=== PATIENT | female | born 1950 | race Caucasian/White ===

== ENCOUNTER → 2019-08-31 08:04 | Outpatient (BNVA) | payer MEDICARE, MEDICAID, SELFPAY | PROVIDERS: Family Provider Family Medicine; Visit Provider Nurse Practitioner Psychiatric/Mental Health | DX: F33.1 Major depressive disorder, recurrent, moderate (principal); G30.9 Alzheimer's disease, unspecified; F02.81 Dementia in other diseases classified elsewhere, unspecified severity, with behavioral disturbance | CPT/HCPCS: 99214 ==

== ENCOUNTER 2019-10-12 08:35 | Outpatient (CLI) | payer MEDICARE, MEDICAID, SELFPAY ==
--- NOTE | 2019-10-12 08:46 | FL_ITS ---
WS: [id number] ESOPHAGRAM WITH FLUOROSCOPY HISTORY: DIFFICULTY SWALLOWING LIQUIDS COMPARISON: None available. FLUOROSCOPY TIME: 0.3 minutes. Mexican Food Maker radiograph: Prior anterior cervical fusion at C5-6. Esophagus and swallowing function: Limited evaluation of the esophagus as patient readily aspirated t he thin barium liquid. Study was terminated quickly. FL/FL barium swallow [id number] IMPRESSION: 1. Significant barium aspiration. Study was terminated quickly. 2. Consider follow-up modified barium swallowing examination.
== END 2019-10-12 08:36 | disposition home or self-care (01) ==
LOC: RADWPI 08:39
PROVIDERS: Family Provider Family Medicine; PCP Registered Nurse; Visit Provider Registered Nurse
DX: R13.10 Dysphagia, unspecified (principal)
CPT/HCPCS: 74220

== ENCOUNTER 2019-10-19 09:45 | Outpatient (CLI) | payer MEDICARE, MEDICAID, SELFPAY ==
--- NOTE | 2019-10-19 09:56 | FL_ITS ---
WS: [id number] MODIFIED BARIUM SWALLOW HISTORY: Other dysphagia FLUOROSCOPY TIME: 1.5 minutes. Modified barium swallow was performed by the speech pathologist. Fluoroscopy was provided with the pa tient in a lateral projection. Multiple food consistencies were provided. With thin liquids there is moderate aspiration or laryngeal penetration. Spontaneous cough was noted. With the thick liquid there is delay in swallowing and mild pharyngeal coating but no aspiration or penetration. With thick liquid consistency laryngeal penetration. FL/FL barium swallow modifd [id number] IMPRESSION: 1. Significant aspiration with thin liquids. Study was terminated at that time . 2. Delay in initiating swallowing. Please see speech therapist report also for recommendations.
== END 2019-10-19 09:46 | disposition home or self-care (01) ==
LOC: RAD 09:47
PROVIDERS: Family Provider Family Medicine; PCP Registered Nurse; Visit Provider Registered Nurse
DX: R13.19 Other dysphagia
CPT/HCPCS: 74230; 92611

== ENCOUNTER 2020-04-13 23:18 | Emergency (ER) | payer MEDICARE, MEDICAID, SELFPAY ==
[2020-04-13 23:24] VITALS: BP 144/41; PULSE 80; RESP 16; TEMP 36.6; O2SAT 98
--- NOTE | 2020-04-13 23:36 | PC.NURSE ---
EKG done at 2326 and shown to ER doctor
[2020-04-13 23:39] VITALS: BP 144/41; PULSE 78; RESP 18; TEMP 36.6; O2SAT 98
--- NOTE | 2020-04-13 23:42 | XRR_ITS ---
PROCEDURE INFORMATION: Exam: XR Chest, 1 View Exam date and time: 04/13/2020 11:45 PM Age: 69 years old Clinical indication: Patient HX: Syncope with secretions. History of chf. TECHNIQUE: Imaging protocol: XR of the chest Views: 1 view. COMPARISON: CR Chest 1 [place] [id number] 04/14/2019 11:52 AM FINDINGS: Lungs: Unremarkable. No consolidation. Pleural space: Unremarkable. No pleural effusion. No pneumothorax. Heart/Mediastinum: Unremarkable. No cardiomegaly. Bones/joints: Unremarkable. XR/XR chest 1V portable [id number] IMPRESSION: Negative for infiltrate.
--- NOTE | 2020-04-13 23:42 | ECG_ITS ---
[facility] Test Date: 2020-04-13 Pat Name: Florence Caban Department: Room: Gender: Female Drainlayer: : 1950 Requested By: Aries Wylie Order Number: [id number] Rahel MD: Alka Reeder M.D. Measurements Intervals [place] Rate: 76 P: 72 WV: 144 QRS: 14 QRSD: 101 T: 71 QT: 404 QTc: 457 Interpretive Statements SINUS RHYTHM LOW QRS VOLTAGE IN PRECORDIAL LEADS [QRS DEFLECTION < 1.0 mV IN CHEST LEADS] Compared to ECG 04/14/2019 14:54:27 Sinus tachycardia no longer present Left-axis deviation no longer present Incomplete right bundle-branch block no longer present Myocardial infarct finding no longer present Electronically Signed On 04-14-2020 22:07:56 CDT by Alka Reeder M.D. [id number]
--- NOTE | 2020-04-13 23:43 | CTR_ITS ---
PROCEDURE INFORMATION: Exam: CT Head Without Contrast Exam date and time: 04/13/2020 11:44 PM Age: 69 years old Clinical indication: Syncope and collapse; Patient HX: Syncope with secretions. History of alzheimer's TECHNIQUE: Imaging protocol: Computed tomography of the head without contrast. Radiation optimization: All CT scans at this facility use at least one of these dose optimization techniques: automated exposure control; mA and/or kV adjustment per patient size (includes targeted exams where dose is matched to clinical indication); or iterative reconstruction. COMPARISON: CT head wo con* [id number] 02/21/2018 8:14 PM RADIATION DOSE METRICS: Total DLP (mGy-cm): 727.91 FINDINGS: Brain: Moderate diffuse white matter disease likely reflecting chronic microvascular ischemic changes Cerebral ventricles: No ventriculomegaly. Bones/joints: Unremarkable. No acute fracture. Paranasal sinuses: Visualized sinuses are unremarkable. No fluid levels. Mastoid air cells: Visualized mastoid air cells are well aerated. Soft tissues: Unremarkable. CT/CT head wo con* [id number] IMPRESSION: Negative for intracranial hemorrhage or mass effect. Radiation Dose CTDIVOL = (mGy): DLP = 727.91 (mGy-cm)
[2020-04-14] VITALS (9 sets, daily range): BP systolic 90–129; BP diastolic 42–58; PULSE 68–88; RESP 19–32; TEMP 36.7; O2SAT 93–99
--- NOTE | 2020-04-14 00:16 | PC.NURSE ---
Tried to obtain urine sample via straight catheter, no output. Patient is incontinent and pull up was full on urine.
[2020-04-14 00:20] LABS: Basophils # 0.1 10^3/uL (0.0-0.1); Basophils % 0.9 %; Eosinophils # 0.4 10^3/uL (0.0-0.8); Eosinophils % 5.4 %; Hematocrit 35.3 % (37.0-47.0); Hemoglobin 10.6 g/dL (11.5-15.3); Lymphocytes # 2.4 10^3/uL (0.8-4.8); Lymphocytes % 29.4 %; Mean Corpuscular Volume 96.4 fL (81-99); Mean Platelet Volume 10.4 fL (7.4-10.4); Monocytes # 1.1 10^3/uL (0.2-0.9); Monocytes % 13.2 %; Neutrophils # 4.08 10^3/uL (1.8-7.7); Neutrophils % 50.7 %; Nucleated Red Blood Cells % 0 %; Platelet Count 234 10^3/cmm (130-400); Red Blood Count 3.66 10^6/uL (4.1-5.3); Red Cell Distribution Width 15.9 % (12.1-15.1)
[2020-04-14 00:36] LABS: Troponin(5th) Baseline 13 ng/L (0-10)
[2020-04-14 00:44] LABS: Alanine Aminotransferase 9 U/L (0-33); Alkaline Phosphatase 98 IU/L (35-105); Anion Gap 14.8 (5-19); Aspartate Amino Transferase 13 U/L (0-32); Blood Urea Nitrogen 39 mg/dL (8-23); Calcium 9.6 mg/dL (8.5-10.5); Carbon Dioxide 27 mmol/L (22-29); Chloride 105 mmol/L (98-107); Creatine Phosphokinase 23 U/L (26-192); Globulin 3.5 g/dL (1.3-4.6); Glomerular Filtration Rate 49.5 mL/min (90-130); Glucose 338 mg/dL (65-115); NT Pro B Type Natriuretic Pept 190 pg/mL (0-125); Osmolality Calculated 319 mOsm/kg (285-295); Potassium 3.8 mmol/L (3.5-5.1); Sodium 143 mmol/L (136-145); Total Bilirubin 0.3 mg/dL (0.15-1.2); Total Protein 7.5 g/dL (6.6-8.7)
--- NOTE | 2020-04-14 01:38 | W.ED.SYNCOPE ---
HPI - Syncope General: Chief Complaint: Syncope Stated Complaint: poss syncope Time Seen by Provider: 04/13/20 23:25 History of Present Illness: HPI narrative: 69-year-old female with dementia presents with a period of unresponsiveness at home. Her daughter noticed that her head was down, and that she was breathing heavily, she tried to wake her without success. She says that for a minute she was foaming from her mouth. Respirations were slowed deep and snoring. Jabs to the side did not wake her. The daughter called an ambulance, and by the time the ambulance had gotten there and gotten inside, the patient was awake. She was treated for urinary tract infection last week. There is been no fever. The patient is nonverbal, and so a history from her self is hard. There is been some shortness of breath, and she was given Lasix for some heart failure at a outside facility. MD complaint: loss of consciousness Onset (ago): minute(s) -: minutes(s) Description of event: incontinence Prodromal symptoms: none Witnessed: Yes - by Bystander Context: at rest Injuries sustained associated with event: none Associated symptoms: Reports no associated symptoms; Deny fever(s) or short of breath Review of Systems General: Reports: ROS unobtainable due to medical condition and ROS unobtainable due to mental status Const: Denies: fever(s) [facility] ED PFSH: Medical History (Updated 04/14/20 @ 03:19 by Aries Pathak DO) Alzheimer disease Congestive heart failure Major depressive disorder, recurrent episode, moderate with anxious distress Physical Exam Const: GENERAL APPEARANCE: comfortable and well kempt ORIENTATION/CONSCIOUSNESS: Yes oriented to person and Yes oriented to time; not oriented to place HENMT: COMMON NORMALS: normocephalic, external ears normal and Normal external nose present HEAD & SCALP: normocephalic FACE & SINUS: normal facial exam NOSE: Normal external nose present and No nasal discharge present EXTERNAL EAR: Yes external ears normal MOUTH: tongue normal THROAT: posterior oropharynx normal; no peritonsillar mass Eye: COMMON NORMALS: EOMs intact bilaterally and conjunctivae normal EYELID: eyelids normal CONJUNCTIVA: Yes conjunctivae normal Neck/C-Spine: COMMON NORMALS: full ROM GENERAL: No tracheal deviation CERVICAL SPINE: Yes normal cervical lordosis and No Cervical spine tenderness Chest: COMMONS NORMALS: normal inspection of the chest CHEST: No tenderness Resp: COMMON NORMALS: clear to auscultation bilaterally EFFORT & INSPECTION: No tachypneic, No respiratory distress, No retractions, No uses accessory muscles and No tracheal deviation AUSCULTATION: clear to auscultation bilaterally, no rhonchi, no wheezes and lung sounds not diminished Cardio: COMMON NORMALS: regular rate and regular rhythm RATE: regular rate RHYTHM: regular rhythm HEART SOUNDS: no murmurs PERIPHERAL PULSES: radial pulses present GI: INSPECTION: No abdominal distension AUSCULTATION: No Hyperactive bowel sounds present and No Hypoactive bowel sounds present PALPATION: No Guarding due to palpation present (GI) and No Rigid due to palpation PERCUSSION: no dullness to percussion and no tympanic to percussion Neuro: SENSORIUM/ORIENTATION: Yes oriented to person, No oriented to place and Yes oriented to time Psych: APPEARANCE: Yes well kempt Skin: COMMON NORMALS: no rashes or lesions noted GENERAL SKIN EXAM: no rashes or lesions noted Course Vital Signs: Vital signs: Vital Signs Temperature 97.8 F 04/13/20 23:39 Pulse Rate 68 04/14/20 02:45 Respiratory Rate 24 H 04/14/20 02:45 Blood Pressure 129/58 04/14/20 02:45 Pulse Oximetry 98 04/14/20 02:45 MDM - Syncope MDM Narrative: Medical decision making narrative: Syncopal episode in a 69-year-old female. She appears back to baseline. Her sugar is elevated. She does not have any acidosis. Her hemoglobin is 10.6. White blood cell count is 8.0. EKG is not remarkable for acute ST changes. Troponin is not elevated 2 hours. She does have significant urinary tract infection, and yeast infection. She will be treated for this. Head CT is negative. Chest x-ray is negative as well. Lab Data: Labs: Lab Results 04/14/20 04/14/20 04/14/20 Range/Units 00:02 00:02 00:02 WBC 8.0 (4.0-10.0) 10^3/ uL RBC 3.66 L (4.1-5.3) 10^6/u L Hgb 10.6 L (11.5-15.3) g/dL Hct 35.3 L (37.0-47.0) % MCV 96.4 (81-99) fL MCH 29.0 (28.0-34.0) pg MCHC 30.0 (30.0-36.0) g/dL RDW 15.9 H (12.1-15.1) % Plt Count 234 (130-400) 10^3/c mm MPV 10.4 (7.4-10.4) fL Neut % (Auto) 50.7 % Lymph % (Auto) 29.4 % [place] % (Auto) 13.2 % Eos % (Auto) 5.4 % Baso % (Auto) 0.9 % Neut # (Auto) 4.08 (1.8-7.7) 10^3/u L Lymph # (Auto) 2.4 (0.8-4.8) 10^3/u L [place] # (Auto) 1.1 H (0.2-0.9) 10^3/u L Eos # (Auto) 0.4 (0.0-0.8) 10^3/u L Baso # (Auto) 0.1 (0.0-0.1) 10^3/u L Nucleated RBC % (a uto) 0 % Nucleated RBCs # 0.0 /100WBC Sodium 143 (136-145) mmol/L Potassium 3.8 (3.5-5.1) mmol/L Chloride 105 (98-107) mmol/L Carbon Dioxide 27 (22-29) mmol/L Anion Gap 14.8 (5-19) BUN 39 H (8-23) mg/dL Creatinine 1.1 H (0.5-0.9) mg/dL GFR Calculation 49.5 L (90-130) mL/min Glucose 338 H (65-115) mg/dL Calculated Osmolal ity 319 H (285-295) mOsm/k g Calcium 9.6 (8.5-10.5) mg/dL Total Bilirubin 0.3 (0.15-1.2) mg/dL AST 13 (0-32) U/L ALT 9 (0-33) U/L Alkaline Phosphata se 98 (35-105) IU/L Creatine Kinase 23 L (26-192) U/L Troponin T Baselin e 13 H (0-10) ng/L Troponin T 120 Min rincon (0-10) ng/L Delta Troponin T (0-10) ABS# NT-Pro-B Natriuret Pep 190 H (0-125) pg/mL Total Protein 7.5 (6.6-8.7) g/dL Albumin 4.0 (3.5-5.2) g/dL Globulin 3.5 (1.3-4.6) g/dL Urine Color (Yellow) Urine Appearance (CLEAR) Urine pH (5-7) Ur Specific Gravit y (1.005-1.030) Urine Protein (Negative) Urine Glucose (UA) (Normal) Urine Ketones (Negative) Urine Blood (Negative) Urine Nitrate (Negative) Urine Bilirubin (Negative) Urine Urobilinogen (Negative) mg/dL Ur Leukocyte Mindy ase (Negative) Urine RBC (0-2) /hpf Urine WBC (0-5) /hpf Ur Squamous Epith Cells (0-5) /hpf Amorphous Sediment Urine Bacteria (NONE) /hpf Hyaline Casts /lpf Urine Mucus /hpf 04/14/20 04/14/20 Range/Units 02:10 02:27 WBC (4.0-10.0) 10^3/ uL RBC (4.1-5.3) 10^6/u L Hgb (11.5-15.3) g/dL Hct (37.0-47.0) % MCV (81-99) fL MCH (28.0-34.0) pg MCHC (30.0-36.0) g/dL RDW (12.1-15.1) % Plt Count (130-400) 10^3/c mm MPV (7.4-10.4) fL Neut % (Auto) % Lymph % (Auto) % [place] % (Auto) % Eos % (Auto) % Baso % (Auto) % Neut # (Auto) (1.8-7.7) 10^3/u L Lymph # (Auto) (0.8-4.8) 10^3/u L [place] # (Auto) (0.2-0.9) 10^3/u L Eos # (Auto) (0.0-0.8) 10^3/u L Baso # (Auto) (0.0-0.1) 10^3/u L Nucleated RBC % (a uto) % Nucleated RBCs # /100WBC Sodium (136-145) mmol/L Potassium (3.5-5.1) mmol/L Chloride (98-107) mmol/L Carbon Dioxide (22-29) mmol/L Anion Gap (5-19) BUN (8-23) mg/dL Creatinine (0.5-0.9) mg/dL GFR Calculation (90-130) mL/min Glucose (65-115) mg/dL Calculated Osmolal ity (285-295) mOsm/k g Calcium (8.5-10.5) mg/dL Total Bilirubin (0.15-1.2) mg/dL AST (0-32) U/L ALT (0-33) U/L Alkaline Phosphata se (35-105) IU/L Creatine Kinase (26-192) U/L Troponin T Baselin e (0-10) ng/L Troponin T 120 Min rincon 13.82 H (0-10) ng/L Delta Troponin T 0.82 (0-10) ABS# NT-Pro-B Natriuret Pep (0-125) pg/mL Total Protein (6.6-8.7) g/dL Albumin (3.5-5.2) g/dL Globulin (1.3-4.6) g/dL Urine Color Yellow (Yellow) Urine Appearance Sl cloudy A (CLEAR) Urine pH 5 (5-7) Ur Specific Gravit y 1.020 (1.005-1.030) Urine Protein Trace (Negative) Urine Glucose (UA) 4+ H (Normal) Urine Ketones Negative (Negative) Urine Blood 2+ H (Negative) Urine Nitrate Positive H (Negative) Urine Bilirubin Neg (Negative) Urine Urobilinogen Norm (Negative) mg/dL Ur Leukocyte Mindy ase 2+ H (Negative) Urine RBC 5-10 H (0-2) /hpf Urine WBC Too numerous to c nt H (0-5) /hpf Ur Squamous Epith Cells 0-4 H (0-5) /hpf Amorphous Sediment Not Reportable Urine Bacteria 3+ H (NONE) /hpf Hyaline Casts 0-4 H /lpf Urine Mucus 1+ /hpf Discharge Plan Discharge Patient Disposition: Home Clinical Impression: Acute UTI Condition: Stable Prescriptions: New cefdinir 300 mg capsule 300 mg PO Q12H Qty: 20 RF: 0 No Action gabapentin 300 mg tablet 300 mg PO BID RF: 0 furosemide 20 mg tablet 20 mg PO QAM RF: 0 quetiapine [Seroquel] 25 mg tablet 25 mg PO BID RF: 0 ranitidine HCl [Acid Assistive Technology Specialist (ranitidine)] 150 mg tablet 150 mg PO BID PRNRF: 0 memantine [Namenda] 10 mg tablet 10 mg PO BID RF: 0 galantamine 12 mg tablet 12 mg PO BID RF: 0 sertraline [Zoloft] 50 mg tablet 50 mg PO QAM Qty: 90 RF: 2 lorazepam [Ativan] 0.5 mg tablet 0.25 mg PO BID PRN (Reason: anxiety/agitation) Qty: 30 RF: 3 (DME) blood sugar diagnostic [Semblee_uch Ultra Blue Test Strip] Strip See Rx Instructions .ROUTE .MEDSUPPLY Qty: 180 RF: 0 pioglitazone [Actos] 45 mg tablet 45 mg PO DAILY Qty: 30 RF: 0 glipizide 5 mg tablet 5 mg PO BID Qty: 60 RF: 0 Discharge Orders: Discharge Order (Routine); Ordered 04/14/20 Ordered By: Aries Pathak Referrals: Megan Flower [Primary Care Provider] - Summer Vasquez DO [Family Provider] - Discharge Diet: Advance as tolerated Discharge Activity: Increase activity as tolerated Patient Instructions: Urinary Tract Infection in Women (ED), Syncope (ED) Activity Restrictions/Additional Instructions: Return for repeated episodes of syncope or passing out, chest discomfort, shortness of breath, fever despite 2-3 doses of antibiotics, other concerning symptoms Coding Level of Care Code ED Electromechanical Assembly Technician for Reginald Fwd Exam Comprehensive
--- NOTE | 2020-04-14 01:42 | ECG_ITS ---
[facility] Test Date: 2020-04-14 Pat Name: Florence Caban Department: Room: Gender: Female Mess Cook: : 1950 Requested By: Aries Wylie Order Number: [id number] Rahel MD: Alka Reeder M.D. Measurements Intervals [place] Rate: 68 P: 75 [place]: 133 QRS: -22 QRSD: 102 T: 64 QT: 421 QTc: 450 Interpretive Statements SINUS RHYTHM BORDERLINE LEFT AXIS DEVIATION [QRS AXIS < -20] LOW QRS VOLTAGE IN PRECORDIAL LEADS [QRS DEFLECTION < 1.0 mV IN CHEST LEADS] Compared to ECG 04/13/2020 23:26:13 No significant changes Electronically Signed On 04-14-2020 22:14:34 CDT by Alka Reeder M.D. [id number]
--- NOTE | 2020-04-14 01:44 | PC.NURSE ---
EKG done at 0144 and shown to ER doctor
[2020-04-14 02:35] LABS: Protein Urine Trace (Negative); Urine Color Yellow (Yellow); pH Urine 5 (5-7)
[2020-04-14 02:36] LABS: Add Urine Microscopic? YES; Bilirubin Urine Neg (Negative); Blood Urine 2+ (Negative); Glucose Urine UA 4+ (Normal); Ketones Urine Negative (Negative); Leukocyte Esterase Urine 2+ (Negative); Nitrate Urine Positive (Negative); Urobilinogen Urine Norm (Negative)
[2020-04-14 02:50] LABS: Troponin 5 2HR 13.82 ng/L (0-10); Troponin 5 2HR Delta 0.82 ABS# (0-10)
[2020-04-14 02:52] LABS: Squamous Epithelial Cell Urine 0-4 /hpf (0-5); WBC Urine TOO NUMEROUS TO CNT /hpf (0-5)
[2020-04-14 02:53] LABS: Add Urine Culture? Yes; Bacteria Urine 3+ /hpf; Hyaline Casts Urine 0-4 /lpf; Mucus Urine 1+ /hpf
[2020-04-14] MEDS: cefTRIAXone 1,000 MG in sodium chloride 0.9% (plus) 50 ML 100 MG IV (03:12)
[2020-04-14] MEDS: fluconazole 100 mg Tablet 150 MG PO (03:17)
== END 2020-04-14 03:58 | disposition home or self-care (01) ==
PROVIDERS: Emergency Provider Emergency Medicine; Family Provider Family Medicine; PCP Registered Nurse
DX: N39.0 Urinary tract infection, site not specified (principal); Z79.84 Long term (current) use of oral hypoglycemic drugs; G30.9 Alzheimer's disease, unspecified; F02.80 Dementia in other diseases classified elsewhere, unspecified severity, without behavioral disturbance, psychotic disturbance, mood disturbance, and anxiety; I50.9 Heart failure, unspecified
CPT/HCPCS: 12345; 51702; 70450; 71045; 80053; 81001; 82550; 83880; 84484; 85025; 87077; 87086; 87186; 93005; 96374; 99284; J0696

== ENCOUNTER 2020-05-09 12:18 | Inpatient (IN) | payer MEDICARE, MEDICAID, SELFPAY ==
[2020-05-09 12:25] VITALS: BP 108/58; PULSE 83; RESP 20; TEMP 36.9; O2SAT 95; BMI 27.4
--- NOTE | 2020-05-09 12:37 | XR_ITS ---
WS: [id number] Exam: XR chest 1V portable [id number] Date/Time of Exam: 05/09/2020 12:37 PM Reason For Exam: dyspnea/cough Comparison 04/14/2020. The lungs are fully expanded. No consolidating infiltrates noted. Chronic interstitial changes. No pl eural effusions. Normal cardiomediastinal structures. Bony elements are intact. Signs of the anterior lower cervical spine fusion XR/XR chest 1V portable [id number] IMPRESSION: 1. Chronic interstitial changes. No acute cardiopulmonary finding.
--- NOTE | 2020-05-09 12:49 | ECG_ITS ---
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
--- NOTE | 2020-05-09 13:02 | W.ED.GENADLT ---
HPI - General Adult General: Chief complaint: General Medical Stated complaint: SOB, UTI Time Seen by Provider: 05/09/20 12:22 History of Present Illness: HPI narrative: 70-year-old female with a history of dementia she is aphasic. She arrives in the emergency room accompanied by her daughter. Her daughter provides all of her history. She is coughed and congested she has not had any fever at all. Usually she is able to walk with assistance of walker she is not able to do that today she normally does wear oxygen at 2 L/min she is on room air now and is satting 95 to 97%. She sounds significantly congested with audible rhonchi and wheezes. She shakes her head no when asked about chest pain abdominal pain or difficulty urinating. Onset (ago): hour(s) Location: chest Associated symptoms: Reports confusion, cough, decreased appetite and short of breath; Deny chest pain, diaphoresis, dyspnea, fevers/chills, headache(s), malaise, nausea, rash, palpitations, seizures, syncope, vomiting or weakness Treatments prior to arrival: none Review of Systems Const: Denies: malaise or diaphoresis ENMT: Denies: throat pain, ear or mastoid pain, nasal discharge or nasal congestion Card: Denies: chest pain, palpitations or syncope Resp: Denies: dyspnea GI: Denies: nausea or vomiting : Denies: flank pain, difficulty voiding, dysuria, urinary frequency or urinary urgency Skin/Breast: Denies: rash Neuro: Reports: confusion; Denies: headache(s) [facility] ED PFSH: Medical History Acute on chronic diastolic (congestive) heart failure Alzheimer disease Congestive heart failure COPD exacerbation History of heart failure Major depressive disorder, recurrent episode, moderate with anxious distress Near syncope Physical Exam Const: COMMON NORMALS: no acute distress GENERAL APPEARANCE: cooperative and comfortable HENMT: COMMON NORMALS: normocephalic, atraumatic, hearing grossly normal bilaterally, external ears normal, EAC's normal, TM's normal bilaterally, Normal nasal mucous membranes and turbinates present, moist oral mucous membranes and oropharynx normal HEAD & SCALP: normocephalic and atraumatic NOSE: Normal nasal mucous membranes and turbinates present EXTERNAL EAR: Yes external ears normal EXTERNAL AUDITORY CANAL: EAC's normal TYMPANIC MEMBRANE: TM's normal bilaterally Eye: COMMON NORMALS: Equal, round and reactive pupils present, EOMs intact bilaterally, conjunctivae normal and no scleral icterus CONJUNCTIVA: Yes conjunctivae normal PUPIL: Yes Equal, round and reactive pupils present Neck/C-Spine: COMMON NORMALS: full ROM, no lymphadenopathy, supple and no JVD Lymph: LYMPHATIC: no lymphadenopathy noted and no lymphedema noted Resp: AUSCULTATION: rhonchi and wheezes Cardio: COMMON NORMALS: no JVD, regular rate, regular rhythm and No murmurs present (Cardio) RATE: regular rate RHYTHM: regular rhythm GI: COMMON NORMALS: Soft to palpation and No hepatosplenomegaly present AUSCULTATION: Yes normoactive bowel sounds PALPATION: Yes Soft to palpation, No Tenderness to palpation present (GI), No Guarding due to palpation present (GI) and Yes No hepatosplenomegaly present Extremity: COMMON NORMALS: normal to inspection, capillary refill normal, no clubbing, cyanosis or edema, no calf tenderness and no pedal edema Skin: COMMON NORMALS: no rashes or lesions noted GENERAL SKIN EXAM: no rashes or lesions noted Course Vital Signs: Vital signs: Vital Signs Temperature 98.5 F 05/09/20 12:25 Pulse Rate 83 05/09/20 12:25 Respiratory Rate 20 H 05/09/20 12:25 Blood Pressure 108/58 05/09/20 12:25 Pulse Oximetry 95 05/09/20 12:25 MDM - General Adult MDM Narrative: Medical decision making narrative: Covid negative. CTA of the chest does not show PE or any evidence of groundglass infiltrates. Appears to be more congestive heart failure. Secondarily patient still has a Alexis in one from when it was placed 3 weeks ago for urinary retention she does have some red blood cells in her urine but no signs of active infection she was recently retested when asymptomatic and cultured out ESBL suspect she may be colonized. Discussed with Dr. Lonnie aj written Lab Data: Labs: Lab Results 05/09/20 05/09/20 05/09/20 Range/Units 13:05 13:05 13:05 WBC 8.8 (4.0-10.0) 10^3/ uL RBC 3.80 L (4.1-5.3) 10^6/u L Hgb 11.0 L (11.5-15.3) g/dL Hct 36.4 L (37.0-47.0) % MCV 95.8 (81-99) fL MCH 28.9 (28.0-34.0) pg MCHC 30.2 (30.0-36.0) g/dL RDW 15.4 H (12.1-15.1) % Plt Count 197 (130-400) 10^3/c mm MPV 9.9 (7.4-10.4) fL Neut % (Auto) 57.7 % Lymph % (Auto) 20.1 % Major % (Auto) 12.2 % Eos % (Auto) 9.2 % Baso % (Auto) 0.6 % Neut # (Auto) 5.08 (1.8-7.7) 10^3/u L Lymph # (Auto) 1.8 (0.8-4.8) 10^3/u L Major # (Auto) 1.1 H (0.2-0.9) 10^3/u L Eos # (Auto) 0.8 (0.0-0.8) 10^3/u L Baso # (Auto) 0.1 (0.0-0.1) 10^3/u L Nucleated RBC % (a uto) 0 % Nucleated RBCs # 0.0 /100WBC Specimen Type Sample Site ABG pH (7.35-7.45) ABG pCO2 (35-45) mmHg ABG pO2 (80.0-100.0) mmH g ABG HCO3 (22-26) mmol/L ABG O2 Saturation ABG Base Excess (-2.0-2.0) mmol/ L Jose Test A-a O2 Gradient (5-10) mmHg Hematocrit (37-47) % Hgb O2 Saturation (95-100) % Carboxyhemoglobin (0.4-20.1) %THgb Methemoglobin (0.4-1.5) % Total Hemoglobin (12-16) g/dL Ionized Calcium (1.1-1.4) mmol/L O2 Delivery Device FiO2 % Specimen Drawn By Chief Lifestyle Officer ID Sodium 140 (136-145) mmol/L Potassium 3.7 (3.5-5.1) mmol/L Chloride 103 (98-107) mmol/L Carbon Dioxide 29 (22-29) mmol/L Anion Gap 11.7 (5-19) BUN 20 (8-23) mg/dL Creatinine 0.8 (0.5-0.9) mg/dL GFR Calculation 71.3 L (90-130) mL/min Glucose 208 H (65-115) mg/dL Calculated Osmolal ity 299 H (285-295) mOsm/k g Lactic Acid 1.8 (0.5-2.2) mmol/L Calcium 9.3 (8.5-10.5) mg/dL Total Bilirubin 0.5 (0.15-1.2) mg/dL AST 13 (0-32) U/L ALT 6 (0-33) U/L Alkaline Phosphata se 94 (35-105) IU/L Creatine Kinase 28 (26-192) U/L NT-Pro-B Natriuret Pep 641 H (0-125) pg/mL Total Protein 7.4 (6.6-8.7) g/dL Albumin 3.9 (3.5-5.2) g/dL Globulin 3.5 (1.3-4.6) g/dL Urine Color (Yellow) Urine Appearance (CLEAR) Urine pH (5-7) Ur Specific Gravit y (1.005-1.030) Urine Protein (Negative) Urine Glucose (UA) (Normal) Urine Ketones (Negative) Urine Blood (Negative) Urine Nitrate (Negative) Urine Bilirubin (Negative) Urine Urobilinogen (Negative) mg/dL Ur Leukocyte Mindy ase (Negative) Urine RBC (0-2) /hpf Urine WBC (0-5) /hpf Ur Squamous Epith Cells (0-5) /hpf Amorphous Sediment Urine Bacteria (NONE) /hpf Urine Yeast /hpf SARS-CoV-2 Ag (Rap id) (Negative) 05/09/20 05/09/20 05/09/20 Range/Units 13:20 13:39 14:45 WBC (4.0-10.0) 10^3/ uL RBC (4.1-5.3) 10^6/u L Hgb (11.5-15.3) g/dL Hct (37.0-47.0) % MCV (81-99) fL MCH (28.0-34.0) pg MCHC (30.0-36.0) g/dL RDW (12.1-15.1) % Plt Count (130-400) 10^3/c mm MPV (7.4-10.4) fL Neut % (Auto) % Lymph % (Auto) % Major % (Auto) % Eos % (Auto) % Baso % (Auto) % Neut # (Auto) (1.8-7.7) 10^3/u L Lymph # (Auto) (0.8-4.8) 10^3/u L Major # (Auto) (0.2-0.9) 10^3/u L Eos # (Auto) (0.0-0.8) 10^3/u L Baso # (Auto) (0.0-0.1) 10^3/u L Nucleated RBC % (a uto) % Nucleated RBCs # /100WBC Specimen Type Arterial Sample Site Left radial ABG pH 7.43 (7.35-7.45) ABG pCO2 42.0 (35-45) mmHg ABG pO2 63.7 L (80.0-100.0) mmH g ABG HCO3 27.8 H (22-26) mmol/L ABG O2 Saturation 93.9 ABG Base Excess 3.1 H (-2.0-2.0) mmol/ L Jose Test Yes A-a O2 Gradient 35.2 H (5-10) mmHg Hematocrit 32.1 L (37-47) % Hgb O2 Saturation 91.8 L (95-100) % Carboxyhemoglobin 1.5 (0.4-20.1) %THgb Methemoglobin 0.7 (0.4-1.5) % Total Hemoglobin 10.5 L (12-16) g/dL Ionized Calcium 1.2 (1.1-1.4) mmol/L O2 Delivery Device Roomair FiO2 21.0 % Specimen Drawn By Karissa Chief Lifestyle Officer ID Karissa Sodium 144.0 H (136-145) mmol/L Potassium 3.8 (3.5-5.1) mmol/L Chloride (98-107) mmol/L Carbon Dioxide (22-29) mmol/L Anion Gap (5-19) BUN (8-23) mg/dL Creatinine (0.5-0.9) mg/dL GFR Calculation (90-130) mL/min Glucose 203.0 H (65-115) mg/dL Calculated Osmolal ity (285-295) mOsm/k g Lactic Acid (0.5-2.2) mmol/L Calcium (8.5-10.5) mg/dL Total Bilirubin (0.15-1.2) mg/dL AST (0-32) U/L ALT (0-33) U/L Alkaline Phosphata se (35-105) IU/L Creatine Kinase (26-192) U/L NT-Pro-B Natriuret Pep (0-125) pg/mL Total Protein (6.6-8.7) g/dL Albumin (3.5-5.2) g/dL Globulin (1.3-4.6) g/dL Urine Color Yellow (Yellow) Urine Appearance Clear (CLEAR) Urine pH 5 (5-7) Ur Specific Gravit y 1.015 (1.005-1.030) Urine Protein Neg (Negative) Urine Glucose (UA) Norm (Normal) Urine Ketones Negative (Negative) Urine Blood 3+ H (Negative) Urine Nitrate Negative (Negative) Urine Bilirubin Neg (Negative) Urine Urobilinogen Norm (Negative) mg/dL Ur Leukocyte Mindy ase Negative (Negative) Urine RBC 25-40 H (0-2) /hpf Urine WBC 0-4 H (0-5) /hpf Ur Squamous Epith Cells 0-4 H (0-5) /hpf Amorphous Sediment Not Reportable Urine Bacteria 2+ H (NONE) /hpf Urine Yeast Trace /hpf SARS-CoV-2 Ag (Rap id) Negative (Negative) Discharge Plan Discharge Patient Disposition: Admitted As Inpatient Clinical Impression: Chronic cystitis, CHF (congestive heart failure), Alzheimer disease, History of heart failure Condition: Stable Coding Level of Care Code ED Speech Pathology Assistant for Chg Fwd Exam Comprehensive
[2020-05-09 13:17] LABS: Basophils # 0.1 10^3/uL (0.0-0.1); Basophils % 0.6 %; Eosinophils # 0.8 10^3/uL (0.0-0.8); Eosinophils % 9.2 %; Hematocrit 36.4 % (37.0-47.0); Lymphocytes # 1.8 10^3/uL (0.8-4.8); Lymphocytes % 20.1 %; Mean Corpuscular HGB Conc 30.2 g/dL (30.0-36.0); Mean Corpuscular Hemoglobin 28.9 pg (28.0-34.0); Mean Corpuscular Volume 95.8 fL (81-99); Mean Platelet Volume 9.9 fL (7.4-10.4); Monocytes # 1.1 10^3/uL (0.2-0.9); Monocytes % 12.2 %; Neutrophils # 5.08 10^3/uL (1.8-7.7); Neutrophils % 57.7 %; Nucleated Red Blood Cells % 0 %; Platelet Count 197 10^3/cmm (130-400); Red Cell Distribution Width 15.4 % (12.1-15.1); White Blood Count 8.8 10^3/uL (4.0-10.0)
[2020-05-09 13:30] LABS: Lactic Sepsis W/Reflex 1.8 mmol/L (0.5-2.2)
[2020-05-09 13:32] LABS: ABG PH Result 7.43 (7.35-7.45); Base Excess ABG 3.1 mmol/L (-2.0-2.0); HCO3 ABG 27.8 mmol/L (22-26); Oxygen Saturation ABG 93.9; Potassium Level - ABG 3.8 mmol/L (3.5-5.0)
[2020-05-09 13:33] LABS: Blood Gas Allen Test YES; Blood Gas Sample Site LEFT RADIAL; Blood Gas Sample Type ARTERIAL; Oxygen Device ROOMAIR
[2020-05-09 13:34] LABS: Alveolar-Arterial Oxygen Gradi 35.2 mmHg (5-10); Arterial Blood Gas Hematocrit 32.1 % (37-47); Carboxyhemoglobin 1.5 %THgb (0.4-20.1); HGB O2 Sat 91.8 % (95-100); Ionized Calcium Level - ABG 1.2 mmol/L (1.1-1.4); Methemoglobin 0.7 % (0.4-1.5); Total Hemoglobin 10.5 g/dL (12-16)
[2020-05-09 13:41] LABS: Alanine Aminotransferase 6 U/L (0-33); Albumin Level 3.9 g/dL (3.5-5.2); Alkaline Phosphatase 94 IU/L (35-105); Anion Gap 11.7 (5-19); Aspartate Amino Transferase 13 U/L (0-32); Blood Urea Nitrogen 20 mg/dL (8-23); Calcium 9.3 mg/dL (8.5-10.5); Carbon Dioxide 29 mmol/L (22-29); Chloride 103 mmol/L (98-107); Creatine Phosphokinase 28 U/L (26-192); Globulin 3.5 g/dL (1.3-4.6); Glomerular Filtration Rate 71.3 mL/min (90-130); Glucose 208 mg/dL (65-115); NT Pro B Type Natriuretic Pept 641 pg/mL (0-125); Osmolality Calculated 299 mOsm/kg (285-295); Potassium 3.7 mmol/L (3.5-5.1); Sodium 140 mmol/L (136-145); Total Bilirubin 0.5 mg/dL (0.15-1.2); Total Protein 7.4 g/dL (6.6-8.7)
--- NOTE | 2020-05-09 13:59 | CT_ITS ---
WS: [id number] CT CHEST ANGIOGRAPHY WITH REFORMATS HISTORY: hypoxia TECHNIQUE: Contiguous axial images are obtained through the chest during arterial injection of intrav enous contrast. Images are reconstructed to evaluate the pulmonary arteries. MIP imaging also reviewe d. All CT scans at use at least one of these dose optimization techniques: aut omated exposure control; mA and/or kV adjustment per patient size (includes targeted exams where dose is matched to clinical indication); or iterative reconstruction. CONTRAST: Omnipaque 350; 95 mL IV. DLP: 1150.55 mGy.cm COMPARISON: 04/14/2019 Significant artifact through the thorax due to patient arm positioning. Adequate opacification of the pulmonary arteries. No emboli through the lobar and majority of the segmental branches. Pulmonary ar zoë size is enlarged. Mild atherosclerosis of aorta with no aneurysm or dissection. Heart size is no rmal. No pericardial effusion. Hyperinflated lungs with emphysema. There is mild CHF and interstitial thickening. Depending changes with atelectasis at the lung bases with very small LEFT pleural effusion. Mediastinal and hilar lymph nodes are prominent which is probably reactive. The largest lymph node at the RIGHT hilum measures 15 mm. Lymph nodes have increased in size and number since the prior study. Increased secretions in the RIGHT lower lobe bronchial tree resulting in atelectasis. Prior cholecystectomy. Small hiatal hernia. Soft tissue anasarca. Increase in thoracic kyphosis with osteopenia. Anterior wedging of T5. Subcentimeter RIGHT thyroid nodule. CT/CT angio chest PE protcl [id number] IMPRESSION: 1. Quality of examination is compromised by body habitus and arm positioning. 2. No pulmonary embolism. 3. Mild CHF with soft tissue anasarca. 4. Pulmonary hypertension. 5. Indeterminate but likely reactive RIGHT hilar lymph nodes.
[2020-05-09 14:03] LABS: PO2 ABG 63.7 mmHg (80.0-100.0)
[2020-05-09 14:21] LABS: SARS Covid-2 Antigen Negative (Negative)
[2020-05-09 15:11] LABS: Add Urine Microscopic? YES; Bilirubin Urine Neg (Negative); Blood Urine 3+ (Negative); Glucose Urine UA Norm (Normal); Ketones Urine Negative (Negative); Leukocyte Esterase Urine Negative (Negative); Nitrate Urine Negative (Negative); Protein Urine Neg (Negative); Specific Gravity, Urine 1.015 (1.005-1.030); Urine Appearance Clear (CLEAR); Urine Color Yellow (Yellow); Urobilinogen Urine Norm (Negative); pH Urine 5 (5-7)
[2020-05-09] MEDS: iohexol 350 mg/mL 100 mL Btl IV (15:15)
[2020-05-09 15:20] LABS: Add Urine Culture? Yes; Bacteria Urine 2+ /hpf; RBC Urine 25-40 /hpf (0-2); Squamous Epithelial Cell Urine 0-4 /hpf (0-5); WBC Urine 0-4 /hpf (0-5)
--- NOTE | 2020-05-09 16:07 | PM.HP ---
Providers/Chief Complaint Admitting Physician: Geovanny Fleming Primary Care Provider: Megan Flower Chief Complaint: SOB, UTI History of Present Illness Florence Caban is a 70 year old female with PMH of ALZ Dementia,DM,COPD ( 2L ) HFpEF, A.fIB S/P ablation, was admitted with c/o worsening sob,patient is non verbal at baseline,history was obtained from daughter,according to her daughter her breathing has been laboured for few days.She recently ( 1 month ago ) had a donis placed for urinary retention, post donis placement she has been treated with cefdinir ( for 4 days ) switched to augmentin ( 10 days) and finally was told to use Macrobid ( for 7days -last day today ).Repest U/A has been sent by the ER.Family deny any fever,chest,pain,nasuea,vomitting. Complete ROS could not be obtained as the patient is non verbal at baseline. ECA Course: CTA chest : No pulmonary embolism.Mild CHF with soft tissue anasarca. Pulmonary hypertension. Xray Chest: Chronic interstitial changes. EKG: Sinus Rhthym Urine Culture: ( 04/14 ) : E.Coli ESBL :Sensitive to nitrofurantion , BNP: 641 U/A: and U/C Pending Blood Culture Pending. CBC : WBC: 8.8, H/H: ABG: pH:7.43,PCO2: 42,PO2: 63 FIO2:21% Review of Systems General: Reports: Other Medications/Allergies Home Medications Medication Instructions Recorded Confirmed Last Taken Type furosemide 20 mg tablet 20 mg PO QAM 08/31/19 05/09/20 05/09/20 History 20 mg galantamine 12 mg tablet 12 mg PO BID 08/31/19 05/09/20 05/09/20 History lorazepam 0.5 mg tablet 0.25 mg PO BID PRN #30 tab 08/31/19 05/09/20 Unknown Rx memantine 10 mg tablet 10 mg PO BID 08/31/19 05/09/20 05/09/20 History sertraline 50 mg tablet 50 mg PO QAM #90 tab 08/31/19 05/09/20 05/09/20 Rx blood sugar diagnostic #180 each 10/12/19 05/09/20 Unknown Rx pioglitazone 45 mg tablet 45 mg PO DAILY #30 tab 10/13/19 05/09/20 05/09/20 Rx simvastatin 20 mg tablet 20 mg PO DAILY #30 tab 05/02/20 05/09/20 05/08/20 Rx glipizide 5 mg PO DAILY 05/09/20 05/09/20 05/09/20 History hydrocodone-acetaminophen 1 tab PO Q8H PRN 05/09/20 05/09/20 Unknown History insulin aspart U-100 [Novolog See Rx Instructions .ROUTE .COMPLEX 05/09/20 05/09/20 Unknown History U-100 Insulin aspart] insulin glargine [Lantus Solostar 10 unit SUBCUT QAM 05/09/20 05/09/20 05/08/20 History U-100 Insulin] nitrofurantoin monohyd/m-cryst 1 cap PO BID 05/09/20 05/09/20 05/09/20 History potassium chloride 10 meq PO BID 05/09/20 05/09/20 05/09/20 History trimethoprim 100 mg PO DAILY 05/09/20 05/09/20 Unknown History Allergies Allergy/AdvReac Type Severity Reaction Status Date / Time venlafaxine [From Effexor] Allergy Unknown Unknown Verified 05/09/20 13:28 PFSH Acute PFSH: Medical History Acute on chronic diastolic (congestive) heart failure Alzheimer disease Congestive heart failure COPD exacerbation History of heart failure Major depressive disorder, recurrent episode, moderate with anxious distress Near syncope Vitals/I&O/Wt Last Vital Signs Temp 98.5 F 05/09/20 12:25 Pulse 83 05/09/20 12:25 Resp 20 H 05/09/20 12:25 BP 108/58 05/09/20 12:25 Pulse Ox 95 05/09/20 12:25 Weight last 48 hrs Weight 77.111 kg Physical Exam HENMT: COMMON NORMALS: normocephalic and atraumatic HEAD & SCALP: normocephalic and atraumatic Eye: COMMON NORMALS: no scleral icterus Chest: COMMONS NORMALS: normal inspection of the chest CHEST: Yes Symmetrical chest wall rise Resp: COMMON NORMALS: normal respiratory effort EFFORT & INSPECTION: Yes symmetric chest movement OTHER: Minimal Expiratory wheezing, no ronchii, no crackles. Cardio: COMMON NORMALS: regular rate, regular rhythm, S1 normal heart sound present, S2 normal heart sound present, No gallops present (Cardio), No murmurs present (Cardio), No rub (Cardio) and Peripheral pulses 2+ throughout RATE: regular rate RHYTHM: regular rhythm HEART SOUNDS: S1 normal heart sound present and S2 normal heart sound present PERIPHERAL PULSES: Peripheral pulses 2+ throughout GI: COMMON NORMALS: Normal to inspection, nondistended, normoactive bowel sounds present, Soft to palpation, non-tender, No hepatosplenomegaly present and no masses AUSCULTATION: Yes normoactive bowel sounds PALPATION: Yes Soft to palpation and Yes No hepatosplenomegaly present RECTAL EXAM: deferred Extremity: COMMON NORMALS: no clubbing, cyanosis or edema and no pedal edema Data : 05/09/20 13:05 05/09/20 13:05 Micro: Microbiology 05/09/20 13:05 Blood Culture - Preliminary Blood SPECIMEN COLLECTED A&P Assessment and plan (1) Acute on chronic diastolic (congestive) heart failure: Patient came in worsening SOB and respiratory distress. BNP:641, C.T Chest is suggeative of Interstial edema Lasix 20 mg I.V * 1 DOSE Continue lasix: 20 mg Daily weight Strict I/O Fluid restriction to 1.5 L Status: Acute (2) Chronic cystitis: Will complete 7days course of Macrobid today. has no leukocytosis, no fever,no overt signs of infection, likely colonization. Follow repaet U/A and UC Status: Acute (3) Alzheimer disease: Continue Home Medications Status: Acute (4) Major depressive disorder, recurrent episode, moderate with anxious distress: No acute intervention. Status: Chronic (5) Diabetes: LDSSI FSG Diabetic Diet Status: Acute (6) A-fib: s/p ablation,not on Ac, Currently rate controlled Status: Acute Additional A&P Information DVT PPX:Lovenox 40 mg sc daily Code Status : AND Disposition: Home Off note family was offered PEG tube placement in the past which she has denied. Attestations Medical Necessity Statement*: Patient needs to be in hospital for the management of Decompensated HFpEF. Coding Level of Care Code Acute Vocational Placement Specialist for [facility] Fwd Diagnoses Acute on chronic diastolic (congestive) heart failure I50.33 Chronic cystitis N30.20 Alzheimer disease G30.9; F02.80 Major depressive disorder, recurrent episode, moderate with anxious distress F33.1 Diabetes E11.9 A-fib I48.91
[2020-05-09] MEDS: FUROsemide 10 mg/mL SDV 2mL 20 MG IVP (17:49)
[2020-05-09] MEDS: enoxaparin 40 mg/0.4 mL Syringe SUBCUT (17:49)
[2020-05-09 18:07] VITALS: BP 124/66; PULSE 73; RESP 21; O2SAT 96
--- NOTE | 2020-05-09 18:50 | PC.NURSE ---
1800 mls of urined dumped out
[2020-05-09 20:00] VITALS: BP 111/69; PULSE 73; RESP 20; TEMP 37.1; O2SAT 91
[2020-05-09 20:46] VITALS: PULSE 76; RESP 18; O2SAT 89
[2020-05-09 20:49] VITALS: PULSE 69; O2SAT 94
[2020-05-09 21:12] LABS: Glucose Point of Care 83 mg/dL (70-110)
[2020-05-09] MEDS: nitrofurantoin SR (BID) 100 mg Capsule PO (21:20)
[2020-05-09] MEDS: potassium chloride ER 10 mEq Tablet PO (21:20)
[2020-05-09] MEDS: memantine 5 mg tablet 10 MG PO (21:20)
[2020-05-10] VITALS (9 sets, daily range): BP systolic 114–130; BP diastolic 56–72; PULSE 68–77; RESP 16–22; TEMP 36.9–37.2; O2SAT 92–100
[2020-05-10 05:17] LABS: Basophils # 0.1 10^3/uL (0.0-0.1); Basophils % 0.7 %; Eosinophils # 0.8 10^3/uL (0.0-0.8); Eosinophils % 11.3 %; Hematocrit 33.3 % (37.0-47.0); Hemoglobin 10.1 g/dL (11.5-15.3); Lymphocytes # 1.9 10^3/uL (0.8-4.8); Lymphocytes % 27.6 %; Mean Corpuscular HGB Conc 30.3 g/dL (30.0-36.0); Mean Corpuscular Hemoglobin 29.1 pg (28.0-34.0); Mean Platelet Volume 10.5 fL (7.4-10.4); Monocytes # 0.9 10^3/uL (0.2-0.9); Monocytes % 13.7 %; Neutrophils % 46.4 %; Nucleated Red Blood Cells % 0 %; Platelet Count 194 10^3/cmm (130-400); Red Blood Count 3.47 10^6/uL (4.1-5.3); Red Cell Distribution Width 15.3 % (12.1-15.1); White Blood Count 6.7 10^3/uL (4.0-10.0)
[2020-05-10 05:30] LABS: INR 1.13 (0.8-1.2)
[2020-05-10 05:31] LABS: Partial Thromboplastin Time 38.5 SECONDS (23.9-36.7)
[2020-05-10 05:51] LABS: Alanine Aminotransferase < 5 U/L (0-33); Albumin Level 3.5 g/dL (3.5-5.2); Alkaline Phosphatase 75 IU/L (35-105); Anion Gap 13.9 (5-19); Aspartate Amino Transferase 10 U/L (0-32); Blood Urea Nitrogen 18 mg/dL (8-23); Calcium 9.2 mg/dL (8.5-10.5); Carbon Dioxide 30 mmol/L (22-29); Chloride 103 mmol/L (98-107); Globulin 3.2 g/dL (1.3-4.6); Glomerular Filtration Rate 83.2 mL/min (90-130); Glucose 91 mg/dL (65-115); Magnesium 1.9 mg/dL (1.7-2.3); Osmolality Calculated 297 mOsm/kg (285-295); Potassium 3.9 mmol/L (3.5-5.1); Sodium 143 mmol/L (136-145); Thyroid Stimulating Hormone 2.65 uIU/mL (0.27-4.20); Total Bilirubin 0.6 mg/dL (0.15-1.2); Total Protein 6.7 g/dL (6.6-8.7)
[2020-05-10 06:18] LABS: Procalcitonin 0.04 ng/mL (0-0.5)
[2020-05-10 06:37] LABS: Glucose Point of Care 101 mg/dL (70-110)
[2020-05-10] MEDS: sertraline 50 mg Tablet PO (07:35)
[2020-05-10] MEDS: atorvastatin 40 mg Tablet 20 MG PO (08:37)
[2020-05-10] MEDS: potassium chloride ER 10 mEq Tablet PO ×2 (08:38→17:22)
[2020-05-10] MEDS: memantine 5 mg tablet 10 MG PO ×2 (08:38→17:22)
[2020-05-10] MEDS: nitrofurantoin SR (BID) 100 mg Capsule PO ×2 (08:38→17:22)
[2020-05-10] MEDS: FUROsemide 10 mg/mL SDV 4mL 40 MG IVP (08:39)
[2020-05-10] MEDS: ipratropium-albuterol 3 mL Neb INHALATION ×2 (10:55→20:47)
[2020-05-10 11:03] LABS: Glucose Point of Care 128 mg/dL (70-110)
--- NOTE | 2020-05-10 12:52 | P.PN_ITS ---
Vitals/I&O/Wt Last Vital Signs Temp 98.6 F 05/10/20 11:59 Pulse 74 05/10/20 11:59 Resp 17 05/10/20 11:59 BP 116/70 05/10/20 11:59 Pulse Ox 92 05/10/20 11:59 05/09/20 05/10/20 05/10/20 22:59 06:59 14:59 Intake Total 718 / 718 Output Total 1100 / 1100 1100 / 1100 Balance -1100 / -1100 -382 / -382 Weight last 48 hrs Weight 80.467 kg Weight 77.111 kg Physical Exam Urinary Catheter Management^: Alexis: Cath Placed During This Visit: no Reason for Continuing Indwelling Catheter: Chronic Indwelling Urinary Catheter on Admission Data : 05/10/20 04:33 05/10/20 04:33 Micro: Microbiology 05/09/20 14:45 Urine Culture - Preliminary Urine,Clean Catch Gram Negative Rods 05/09/20 17:19 Blood Culture - Preliminary Blood SPECIMEN COLLECTED 05/09/20 13:05 Blood Culture - Preliminary Blood SPECIMEN COLLECTED A&P Assessment and plan (1) Acute on chronic diastolic (congestive) heart failure: Patient came in worsening SOB and respiratory distress. BNP:641, C.T Chest is suggeative of Interstial edema Lasix 20 mg I.V Continue lasix: 20 mg Daily weight Strict I/O Fluid restriction to 1.5 L Status: Acute (2) Chronic cystitis: Completed Macrobid 7 day course. Status: Acute (3) Alzheimer disease: Continue Home Medications Status: Acute (4) Major depressive disorder, recurrent episode, moderate with anxious distress : No acute intervention. Status: Chronic (5) Diabetes: LDSSI FSG Diabetic Diet Status: Acute (6) A-fib: s/p ablation,not on Ac, Currently rate controlled Status: Acute Additional A&P Information DVT PPX:Lovenox 40 mg sc daily Code Status : AND Disposition: Home Off note family was offered PEG tube placement in the past which she has denied. Coding Level of Care Code Acute Electrical Engineering Manager for Chg Fwd Diagnoses Acute on chronic diastolic (congestive) heart failure I50.33 Chronic cystitis N30.20 Alzheimer disease G30.9; F02.80 Major depressive disorder, recurrent episode, moderate with anxious distress F33.1 Diabetes E11.9 A-fib I48.91
--- NOTE | 2020-05-10 13:00 | P.PN_ITS ---
Subjective Subjective: Interval history: No new clinical events overnight. Patient was stable respiratory maradiaga. Vitals/I&O/Wt Last Vital Signs Temp 98.6 F 05/10/20 11:59 Pulse 74 05/10/20 11:59 Resp 17 05/10/20 11:59 BP 116/70 05/10/20 11:59 Pulse Ox 92 05/10/20 11:59 05/09/20 05/10/20 05/10/20 22:59 06:59 14:59 Intake Total 718 / 718 Output Total 1100 / 1100 1100 / 1100 Balance -1100 / -1100 -382 / -382 Weight last 48 hrs Weight 80.467 kg Weight 77.111 kg Physical Exam HENMT: COMMON NORMALS: normocephalic and atraumatic HEAD & SCALP: normocephalic and atraumatic Eye: COMMON NORMALS: no scleral icterus Chest: COMMONS NORMALS: normal inspection of the chest CHEST: Yes Symmetrical chest wall rise Resp: COMMON NORMALS: normal respiratory effort EFFORT & INSPECTION: Yes symmetric chest movement Cardio: COMMON NORMALS: regular rate, regular rhythm, S1 normal heart sound present, S2 normal heart sound present, No gallops present (Cardio), No murmurs present (Cardio), No rub (Cardio) and Peripheral pulses 2+ throughout RATE: regular rate RHYTHM: regular rhythm HEART SOUNDS: S1 normal heart sound present and S2 normal heart sound present PERIPHERAL PULSES: Peripheral pulses 2+ throughout GI: COMMON NORMALS: Normal to inspection, nondistended, normoactive bowel sounds present, Soft to palpation, non-tender, No hepatosplenomegaly present and no masses AUSCULTATION: Yes normoactive bowel sounds PALPATION: Yes Soft to palpation and Yes No hepatosplenomegaly present RECTAL EXAM: deferred Extremity: COMMON NORMALS: no clubbing, cyanosis or edema and no pedal edema Urinary Catheter Management^: Alexis: Cath Placed During This Visit: no Reason for Continuing Indwelling Catheter: Chronic Indwelling Urinary Catheter on Admission Data : 05/10/20 04:33 05/10/20 04:33 Micro: Microbiology 05/09/20 14:45 Urine Culture - Preliminary Urine,Clean Catch Gram Negative Rods 05/09/20 17:19 Blood Culture - Preliminary Blood SPECIMEN COLLECTED 05/09/20 13:05 Blood Culture - Preliminary Blood SPECIMEN COLLECTED A&P Assessment and plan (1) Acute on chronic diastolic (congestive) heart failure: Patient came in worsening SOB and respiratory distress. BNP:641, C.T Chest is suggeative of Interstial edema Plan: Currently on Lasix 40 mg IV daily Will change to Lasix 40 mg PO daily Repeat labs in am Replace K as needed Wean off 02 May require supplemental o2 at discharge. Status: Acute (2) Chronic cystitis: [facility] Status: Acute (3) Alzheimer disease: Continue Home Medications Status: Acute (4) Major depressive disorder, recurrent episode, moderate with anxious distress: No acute intervention. Status: Chronic (5) Diabetes: LDSSI FSG Diabetic Diet Status: Acute (6) A-fib: s/p ablation,not on Ac, Currently rate controlled Status: Acute Attestations Medical Necessity Statement*: Transitioned to PO lasix, weaning oxygen may require addition day in hospital Time Spent in Patient Care: Greater than 35 minutes (>than 50% of time spent in counselling and/or direct pt care on unit) . Coding Level of Care Code Acute Aircraft Engine Specialist for Reginald Hernandez Diagnoses Acute on chronic diastolic (congestive) heart failure I50.33 Chronic cystitis N30.20 Alzheimer disease G30.9; F02.80 Major depressive disorder, recurrent episode, moderate with anxious distress F33.1 Diabetes E11.9 A-fib I48.91
[2020-05-10] MEDS: LORazepam 0.5 mg Tablet 0.25 MG PO (13:57)
--- NOTE | 2020-05-10 14:34 | PC.RESP ---
Pulmonary Rehab information sent to patient.
[2020-05-10] MEDS: HYDROcodone-acetaminophen 5-325 mg Tablet 1 TAB PO (17:22)
[2020-05-10] MEDS: enoxaparin 40 mg/0.4 mL Syringe SUBCUT (17:22)
[2020-05-10 17:34] LABS: Glucose Point of Care 102 mg/dL (70-110)
[2020-05-10 21:31] LABS: Glucose Point of Care 193 mg/dL (70-110)
[2020-05-11] VITALS (9 sets, daily range): BP systolic 120–132; BP diastolic 62–75; PULSE 64–87; RESP 17–18; TEMP 36.4–36.8; O2SAT 88–96
[2020-05-11] MEDS: sertraline 50 mg Tablet PO (05:03)
[2020-05-11 05:19] LABS: Basophils # 0.1 10^3/uL (0.0-0.1); Basophils % 0.8 %; Eosinophils # 0.8 10^3/uL (0.0-0.8); Eosinophils % 10.5 %; Hematocrit 36.2 % (37.0-47.0); Hemoglobin 10.7 g/dL (11.5-15.3); Lymphocytes # 1.3 10^3/uL (0.8-4.8); Lymphocytes % 17.2 %; Mean Corpuscular HGB Conc 29.6 g/dL (30.0-36.0); Mean Corpuscular Hemoglobin 29.1 pg (28.0-34.0); Mean Corpuscular Volume 98.4 fL (81-99); Mean Platelet Volume 11.3 fL (7.4-10.4); Monocytes # 0.9 10^3/uL (0.2-0.9); Monocytes % 11.7 %; Neutrophils # 4.63 10^3/uL (1.8-7.7); Neutrophils % 59.4 %; Nucleated Red Blood Cells % 0 %; Red Blood Count 3.68 10^6/uL (4.1-5.3); White Blood Count 7.8 10^3/uL (4.0-10.0)
--- NOTE | 2020-05-11 05:37 | PC.NURSE ---
Addendum entered by Mraielos Dunham LPN 05/11/20 05:40: Patient is nonverbal. According to H&P this is baseline. Original Note: Shift summary Patient was very pleasant tonight. She slept throughout the night with no problems.
[2020-05-11 06:31] LABS: INR 1.05 (0.8-1.2); Partial Thromboplastin Time 35.1 SECONDS (23.9-36.7)
[2020-05-11 06:41] LABS: Albumin Level 3.6 g/dL (3.5-5.2); Alkaline Phosphatase 80 IU/L (35-105); Chloride 99 mmol/L (98-107); Sodium 138 mmol/L (136-145)
[2020-05-11 07:27] LABS: Glucose Point of Care 120 mg/dL (70-110)
[2020-05-11 07:46] LABS: Alanine Aminotransferase 6 U/L (0-33); Aspartate Amino Transferase 11 U/L (0-32); Blood Urea Nitrogen 22 mg/dL (8-23); Calcium 9.2 mg/dL (8.5-10.5); Carbon Dioxide 30 mmol/L (22-29); Glomerular Filtration Rate 83.2 mL/min (90-130); Glucose 110 mg/dL (65-115); Magnesium 1.9 mg/dL (1.7-2.3); Osmolality Calculated 290 mOsm/kg (285-295); Total Bilirubin 0.6 mg/dL (0.15-1.2); Total Protein 6.6 g/dL (6.6-8.7)
--- NOTE | 2020-05-11 08:10 | P.DS_ITS ---
Discharge Providers Date of Admission: 05/09/20 16:43 Date of Discharge: May 11, 2020 Attending Provider at Admission: Geovanny Fleming MD Attending Provider at Discharge: Emily Schwartz Primary Care Provider: Megan Flower Diagnoses at Discharge Discharge Diagnosis (1) Acute on chronic diastolic (congestive) heart failure: Status: Acute (2) Chronic cystitis: Status: Acute (3) Alzheimer disease: Status: Acute (4) Major depressive disorder, recurrent episode, moderate with anxious distress: Status: Chronic (5) Diabetes: Status: Acute (6) A-fib: Status: Acute Reason for Visit Reason for Visit: SOB, UTI Hospital Course Hospital Course 70-year-old female with a past medical history significant for Alzheimer's dementia, diabetes mellitus, O2 dependent COPD, chronic heart failure with preserved EF, atrial fibrillation status post ablation, recent urinary retention due to UTI requiring donis and antibiotics presented to the hospital with respiratory distress. upon arrival to hospital patient's laboratory workup showed a WBC of 8.8, hemoglobin of 11, hematocrit of 36. Arterial blood gas showed a pH of 7.43, pCO2 42, PO2 of 63. Imaging studies included a chest x-ray which showed chronic interstitial changes. CTA of chest did not show any evidence of acute pulmonary embolism however mild CHF with soft tissue anasarca and evidence of pulmonary hypertension was seen. Patient was started on IV Lasix. Patient's respiratory status had returned to baseline. Her Lasix were transitioned to oral. Oxygen requirements at baseline 2 L at the time of discharge. In addition patient's urinalysis at again shown evidence of infection. Was s tarted on antibiotics. Apparently patient had recently been on 7 days of nitrofurantoin for ESBL E coli the last day of which was on 05/09/2020. This was continued for an additional 5 days at discharge. Patient was again found to have urinary retention requiring a Donis placement. At the time of discharge recommendations for close follow-up with urology prior to donis removal. Also patient was found to have 1/4 blood culture obtain on admission growing gram positive organism which was suspected to be a contamination. Patient was afebrile without any evidence of worsening infection prior to discharge. Patient was discharged in stable condition. Physical Exam HENMT: COMMON NORMALS: normocephalic and atraumatic HEAD & SCALP: normocephalic and atraumatic Eye: COMMON NORMALS: no scleral icterus Chest: COMMONS NORMALS: normal inspection of the chest CHEST: Yes Symmetrical chest wall rise Resp: COMMON NORMALS: normal respiratory effort EFFORT & INSPECTION: Yes symmetric chest movement Cardio: COMMON NORMALS: regular rate, regular rhythm, S1 normal heart sound present, S2 normal heart sound present, No gallops present (Cardio), No murmurs present (Cardio), No rub (Cardio) and Peripheral pulses 2+ throughout RATE: regular rate RHYTHM: regular rhythm HEART SOUNDS: S1 normal heart sound present and S2 normal heart sound present PERIPHERAL PULSES: Peripheral pulses 2+ throughout GI: COMMON NORMALS: Normal to inspection, nondistended, normoactive bowel sounds present, Soft to palpation, non-tender, No hepatosplenomegaly present and no masses AUSCULTATION: Yes normoactive bowel sounds PALPATION: Yes Soft to palpation and Yes No hepatosplenomegaly present RECTAL EXAM: deferred Extremity: COMMON NORMALS: no clubbing, cyanosis or edema and no pedal edema Urinary Catheter Management^: Donis: Cath Placed During This Visit: yes, but has since been removed by the nurse Reason for Continuing Indwelling Catheter: Decision to DC Catheter Date Urinary Catheter Removed: 05/10/20 Time Urinary Catheter Discontinued: 19:31 Discharge Data Data Completed and Pending: Completed Studies During Hospitalization Category Date Time Status CT angio chest PE protcl [id number] Stat Cat Scan 05/09/20 13:59 Completed XR chest 1V bi ble [id number] Stat Exams 05/09/20 12:37 Completed Pending at discharge Category Date Time Status Blood Culture Sta t Lab 05/09/20 17:19 Results Complete Blood Co unt w/Auto AM LABS Lab 05/11/20 04:42 Results Complete Blood Co unt w/Auto AM LABS Lab 05/12/20 04:00 Ordered Comprehensive Met abolic Panel AM LA BS Lab 05/12/20 04:00 Ordered Magnesium AM LABS Lab 05/12/20 04:00 Ordered Partial Thrombopl astin Time AM LABS Lab 05/12/20 04:00 Ordered Prothrombin Time INR AM LABS Lab 05/12/20 04:00 Ordered Urine Culture Sta t Lab 05/09/20 14:45 Results Labs from last 24 hours 05/11/20 05/11/20 05/11/20 06:51 05:53 05:53 WBC RBC Hgb Hct MCV MCH MCHC RDW Plt Count MPV Lymph % (Auto) Edgar % (Auto) Lymph # (Auto) Edgar # (Auto) PT 14.10 INR 1.05 APTT 35.1 Sodium 138 Potassium 4.0 Chloride 99 Carbon Dioxide 30 H Anion Gap 13.0 BUN 22 Creatinine 0.7 GFR Calculation 83.2 L Glucose 110 POC Glucose 120 Calculated Osmolal ity 290 Calcium 9.2 Magnesium 1.9 Total Bilirubin 0.6 AST 11 ALT 6 Alkaline Phosphata se 80 Total Protein 6.6 Albumin 3.6 Globulin 3.0 05/11/20 05/10/20 05/10/20 04:42 20:34 17:00 WBC Pending RBC Pending Hgb Pending Hct Pending MCV Pending MCH Pending MCHC Pending RDW Pending Plt Count Pending MPV Pending Lymph % (Auto) Pending Edgar % (Auto) Pending Lymph # (Auto) Pending Edgar # (Auto) Pending PT INR APTT Sodium Potassium Chloride Carbon Dioxide Anion Gap BUN Creatinine GFR Calculation Glucose POC Glucose 193 102 Calculated Osmolal ity Calcium Magnesium Total Bilirubin AST ALT Alkaline Phosphata se Total Protein Albumin Globulin 05/10/20 10:56 WBC RBC Hgb Hct MCV MCH MCHC RDW Plt Count MPV Lymph % (Auto) Edgar % (Auto) Lymph # (Auto) Edgar # (Auto) PT INR APTT Sodium Potassium Chloride Carbon Dioxide Anion Gap BUN Creatinine GFR Calculation Glucose POC Glucose 128 Calculated Osmolal ity Calcium Magnesium Total Bilirubin AST ALT Alkaline Phosphata se Total Protein Albumin Globulin Vitals: Last Vital Signs Temp 97.6 F 05/11/20 07:47 Pulse 82 05/11/20 07:47 Resp 17 05/11/20 07:47 BP 125/62 05/11/20 07:47 Pulse Ox 95 05/11/20 07:47 Discharge Plan Discharge Patient Disposition: Home Condition: Stable Prescriptions: New furosemide 40 mg Tablet 40 mg PO DAILY@0800 Qty: 30 RF: 0 tramadol 50 mg tablet 50 mg PO QID PRN (Reason: pain) Qty: 10 RF: 0 Macrobid 100 mg capsule 100 mg PO BID 5 Days Qty: 10 RF: 0 Continued memantine [Namenda] 10 mg tablet 10 mg PO BID RF: 0 galantamine 12 mg tablet 12 mg PO BID RF: 0 sertraline [Zoloft] 50 mg tablet 50 mg PO QAM Qty: 90 RF: 2 lorazepam [Ativan] 0.5 mg tablet 0.25 mg PO BID PRN (Reason: anxiety/agitation) Qty: 30 RF: 3 simvastatin 20 mg tablet 20 mg PO DAILY Qty: 30 RF: 0 (DME) blood sugar diagnostic [OmetricsTouch Ultra Blue Test Strip] Strip See Rx Instructions .ROUTE .MEDSUPPLY Qty: 180 RF: 0 glipizide 5 mg tablet 5 mg PO DAILY RF: 0 potassium chloride 10 mEq capsule, extended release 10 meq PO BID RF: 0 trimethoprim 100 mg tablet 100 mg PO DAILY RF: 0 Novolog U-100 Insulin aspart 100 unit/mL solution See Rx Instructions .ROUTE .COMPLEX RF: 0 Lantus Solostar U-100 Insulin 100 unit/mL (3 mL) insulin pen 10 unit SUBCUT QAM RF: 0 Discontinued furosemide 20 mg tablet 20 mg PO QAM RF: 0 pioglitazone [Actos] 45 mg tablet 45 mg PO DAILY Qty: 30 RF: 0 hydrocodone-acetaminophen 5-325 mg tablet 1 tab PO Q8H PRN (Reason: Pain) RF: 0 nitrofurantoin monohyd/m-cryst 100 mg capsule 1 cap PO BID RF: 0 Discharge Orders: Discharge Order (Routine); Ordered 05/11/20 Ordered By: Emily Schwartz Other Ambulatory Orders: DME: Oxygen (Order) Location: None Selected Ordered By: Emily Schwartz Referrals: [facility] [Outside] Megan Flower [Primary Care Provider] - 05/14/20 2:00 pm Discharge Diet: Diabetic Discharge Activity: Resume usual activity Patient Instructions: Furosemide (By mouth), Tramadol (By mouth), Heart Failure (DC), Urinary Tract Infection in Women (GEN), CHF Stoplight Discharge Attestations Time Spent in Discharge Care*: greater than 30 min Specific Discharge Activities: Other discharge activites (optional): Donis care Status at Discharge: Cognitive status at discharge: moderately impaired cognition (Baseline dementia ) , Behavioral status at discharge: dependent in ADL's , Overall status at discharge: patient is progressing back to baseline Quality Metrics Clinical Quality Measures During this hospital stay, did patient experience: None Coding Level of Care Code Acute Managing Partner for Reginald Hernandez Diagnoses Acute on chronic diastolic (congestive) heart failure I50.33 Chronic cystitis N30.20 Alzheimer disease G30.9; F02.80 Major depressive disorder, recurrent episode, moderate with anxious distress F33.1 Diabetes E11.9 A-fib I48.91
[2020-05-11] MEDS: FUROsemide 40 mg Tablet PO (08:33)
[2020-05-11] MEDS: potassium chloride ER 10 mEq Tablet PO (08:41)
[2020-05-11] MEDS: atorvastatin 40 mg Tablet 20 MG PO (08:41)
[2020-05-11] MEDS: nitrofurantoin SR (BID) 100 mg Capsule PO (08:41)
[2020-05-11] MEDS: memantine 5 mg tablet 10 MG PO (08:41)
[2020-05-11 08:55] LABS: Platelet Count 185 10^3/cmm (130-400); Slide Review Slide Review Perform
[2020-05-11] MEDS: ipratropium-albuterol 3 mL Neb INHALATION (09:07)
[2020-05-11 11:38] LABS: Glucose Point of Care 198 mg/dL (70-110)
[2020-05-11] MEDS: HYDROcodone-acetaminophen 5-325 mg Tablet 1 TAB PO (14:36)
== END 2020-05-11 17:33 | disposition home or self-care (01) | DRG 292 ==
LOC: ER 16:08 → MEDSURG 18:07
PROVIDERS: Admitting Provider Internal Medicine; Emergency Provider Family Medicine; PCP Registered Nurse; Visit Provider Hospitalist
DX: I50.33 Acute on chronic diastolic (congestive) heart failure (principal); F33.1 Major depressive disorder, recurrent, moderate; N30.20 Other chronic cystitis without hematuria; E11.9 Type 2 diabetes mellitus without complications; G30.9 Alzheimer's disease, unspecified; Z66 Do not resuscitate; F02.80 Dementia in other diseases classified elsewhere, unspecified severity, without behavioral disturbance, psychotic disturbance, mood disturbance, and anxiety; J44.9 Chronic obstructive pulmonary disease, unspecified; Z99.81 Dependence on supplemental oxygen; I48.91 Unspecified atrial fibrillation; I27.20 Pulmonary hypertension, unspecified
CPT/HCPCS: 12345; 36415; 36416; 36600; 51702; 71045; 71275; 80051; 80053; 81001; 82330; 82550; 82805; 82962; 83605; 83735; 83880; 84145; 84443; 85025; 85610; 85730; 87040; 87077; 87086; 87186; 87426; 93005; 94640; 96372; 96375; 99281; J1650; J1815; J1940; Q9967

== ENCOUNTER 2020-12-12 08:04 | Outpatient (CLI) | payer MEDICARE, MEDICAID, SELFPAY ==
--- NOTE | 2020-12-12 08:11 | MR_ITS ---
WS: [id number] MRI RIGHT KNEE NONCONTRAST TECHNIQUE: Axial PD, coronal PD fat sat, coronal PD, sagittal PD, and sagittal PD fat-sat images obta ined. CLINICAL INFORMATION: DISPLACED BICONDYLAR FRACTURE COMPARISON: Radiograph November 21, 2020 FINDINGS: Comparison with recent radiograph November 21, 2020. Advanced osteopenia. 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 Again seen is the nondisplaced tibial plateau fracture ex tending to the base of the tibial spines and extending posteriorly and peripherally to involve the ti bial metaphysis. No significant depression. Diffuse associated edema. Small amount of subchondral mila ma involving the medial femoral condyle consistent with contusion. Lateral femoral condyle is normal. Additional diffuse edema involving the head of the fibula with transverse nondisplaced fracture. No displacement. Moderate suprapatellar joint effusion. Blood products within the suprapatellar bursa. Normal ACL and PCL. Chronic thinning of the ACL which appears intact. Moderate chondromalacia patella. Normal medial and lateral patellar retinaculum. Diffuse soft tissue edema. Intrasubstance signal abnormality invol ving the medial meniscus. Lateral meniscus is normal. MR/MR knee RT wo con* [id number] IMPRESSION: 1. Again seen is the slightly comminuted nondisplaced fracture involving the t ibial plateau extending posteriorly and laterally to involve the medial and lat eral metaphyseal cortex. No significant depression. Diffuse associated edema. A nterior extension to the tibial spines. 2. Nondisplaced hairline fracture involving the head of the fibula with diffus e edema. 3. Moderate suprapatellar effusion with hemarthrosis. 4. Diffuse subchondral edema consistent with contusion involving the medial fe moral condyle. 5. Medial and lateral meniscus appear intact with chronic intrasubstance signa l abnormality. 6. Moderate chondromalacia patella. Normal medial and lateral patellar retinac ulum. 7. Diffuse subcutaneous soft tissue edema. Outbridge grading:
== END 2020-12-12 08:05 | disposition home or self-care (01) ==
PROVIDERS: PCP Registered Nurse; Visit Provider Orthopaedic Surgery
DX: S82.141A Displaced bicondylar fracture of right tibia, initial encounter for closed fracture (principal); R60.0 Localized edema; M22.41 Chondromalacia patellae, right knee; M25.461 Effusion, right knee; S82.401A Unspecified fracture of shaft of right fibula, initial encounter for closed fracture; X58.XXXA Exposure to other specified factors, initial encounter
CPT/HCPCS: 73721

== ENCOUNTER 2021-01-08 12:34 | Outpatient (CLI) | payer MEDICARE, MEDICAID, SELFPAY ==
[2021-01-08 13:40] LABS: Alanine Aminotransferase < 5 U/L (0-33); Albumin Level 3.6 g/dL (3.5-5.2); Alkaline Phosphatase 109 IU/L (35-105); Anion Gap 13.9 (5-19); Aspartate Amino Transferase 11 U/L (0-32); Blood Urea Nitrogen 23 mg/dL (8-23); Calcium 8.8 mg/dL (8.5-10.5); Carbon Dioxide 30 mmol/L (22-29); Chloride 101 mmol/L (98-107); Globulin 3.3 g/dL (1.3-4.6); Glomerular Filtration Rate 122.7 mL/min (90-130); Glucose 187 mg/dL (65-115); NT Pro B Type Natriuretic Pept 337 pg/mL (0-125); Osmolality Calculated 301 mOsm/kg (285-295); Potassium 3.9 mmol/L (3.5-5.1); Sodium 141 mmol/L (136-145); Total Bilirubin 0.3 mg/dL (0.15-1.2); Total Protein 6.9 g/dL (6.6-8.7)
== END 2021-01-08 12:35 | disposition home or self-care (01) ==
LOC: LAB 12:38
PROVIDERS: PCP Registered Nurse; Visit Provider Registered Nurse
DX: I27.20 Pulmonary hypertension, unspecified (principal); E11.9 Type 2 diabetes mellitus without complications; I50.32 Chronic diastolic (congestive) heart failure; I48.91 Unspecified atrial fibrillation
CPT/HCPCS: 80053; 83880

== ENCOUNTER 2021-01-22 20:14 | Inpatient (IN) | payer MEDICARE, MEDICAID, SELFPAY ==
[2021-01-22 21:22] VITALS: BP 178/72; PULSE 109; RESP 26; O2SAT 92; BMI 29.0
--- NOTE | 2021-01-22 21:31 | ECG_ITS ---
[facility] ED Test Date: 2021-01-22 Pat Name: Florence Caban Department: Room: Gender: Female [employer]: : 1950 Requested By: Rosmery Milner Order Number: [id number] Rahel MD: Alka Reeder M.D. Measurements Intervals Paradox Rate: 96 P: 42 DC: 108 QRS: -15 QRSD: 76 T: 22 QT: 345 QTc: 437 Interpretive Statements SINUS RHYTHM WITH SHORT DC INTERVAL MINIMAL ST DEPRESSION [0.025+ mV ST DEPRESSION] Compared to ECG 05/09/2020 13:34:00 Short DC interval now present ST (T wave) deviation still present Electronically Signed On 01-23-2021 20:28:48 CDT by Alka Reeder M.D. [id number]
--- NOTE | 2021-01-22 21:31 | XRR_ITS ---
PROCEDURE INFORMATION: Exam: XR Chest Exam date and time: 01/22/2021 9:31 PM Age: 70 years old Clinical indication: Shortness of breath and wheezing; Patient HX: SOB with wheezing. TECHNIQUE: Imaging protocol: XR of the chest. Views: 1 view. COMPARISON: CR XR chest 1V portable [id number] 05/09/2020 12:57 PM FINDINGS: Lungs: Interstitial and airspace opacities are seen in the right suprahilar and left infrahilar regions, which may be pneumonia. Pleural spaces: A small left pleural effusion is present. No pneumothorax is detected. Heart/Mediastinum: Unremarkable. No cardiomegaly. Bones/joints: Spinal fusion hardware is again seen in the lower cervical spine. XR/XR chest 1V portable [id number] IMPRESSION: 1. Right suprahilar and left infrahilar opacities may be secondary to pneumonia, correlate clinically. 2. Small left pleural effusion.
[2021-01-22 22:21] LABS: ABG PCO2 48.4 mmHg (35-45); ABG PH Result 7.44 (7.35-7.45); Arterial Blood Gas Hematocrit 28.7 % (37-47); Base Excess ABG 7.3 mmol/L (-2.0-2.0); Blood Gas Allen Test Pos; Blood Gas Sample Type Arterial; HCO3 ABG 32.5 mmol/L (22-26); PO2 ABG 71.7 mmHg (80.0-100.0)
[2021-01-22 22:22] LABS: Blood Gas Operator Identificat MONRO; Blood Gas Sample Site Radial, left; Oxygen Device NC
[2021-01-22 23:27] VITALS: BP 140/95; PULSE 95; RESP 38; O2SAT 96
[2021-01-22 23:46] VITALS: PULSE 95; RESP 35; O2SAT 97
[2021-01-22 23:59] LABS: Basophils % 0.2 %; Eosinophils # 0.1 10^3/uL (0.0-0.8); Eosinophils % 2.4 %; Hemoglobin 8.6 g/dL (11.5-15.3); Lymphocytes # 0.9 10^3/uL (0.8-4.8); Lymphocytes % 19.2 %; Mean Corpuscular HGB Conc 30.7 g/dL (30.0-36.0); Mean Corpuscular Hemoglobin 28.1 pg (28.0-34.0); Mean Corpuscular Volume 91.5 fL (81-99); Mean Platelet Volume 9.6 fL (7.4-10.4); Monocytes # 0.6 10^3/uL (0.2-0.9); Monocytes % 13.1 %; Neutrophils # 2.99 10^3/uL (1.8-7.7); Neutrophils % 64.5 %; Nucleated Red Blood Cells % 0 %; Platelet Count 338 10^3/cmm (130-400); Red Blood Count 3.06 10^6/uL (4.1-5.3); Red Cell Distribution Width 15.5 % (12.1-15.1); White Blood Count 4.6 10^3/uL (4.0-10.0)
[2021-01-23] VITALS (29 sets, daily range): BP systolic 81–147; BP diastolic 50–108; PULSE 83–120; RESP 16–36; TEMP 36.8–37.1; O2SAT 87–101
[2021-01-23] MEDS: albuterol 8 gm MDI 2 PUFF INHALATION (00:08)
[2021-01-23 00:18] LABS: Slide Review Slide Review Perform
[2021-01-23 00:23] LABS: Lactic Sepsis W/Reflex 0.9 mmol/L (0.5-2.2); Troponin T (5th) Once 22 ng/L (0-10)
[2021-01-23 00:27] LABS: Influenza A by IFA Negative (Negative); Influenza B by IFA Negative (Negative); SARS Covid-2 Antigen Negative (Negative)
[2021-01-23 00:30] LABS: NT Pro B Type Natriuretic Pept 1000 pg/mL (0-125); Procalcitonin 0.06 ng/mL (0-0.5)
--- NOTE | 2021-01-23 00:41 | W.ED.SOB ---
HPI - SOB/Dyspnea General: Chief Complaint: Shortness of Breath/Dyspnea Stated Complaint: abnormal labs/low o2 Time Seen by Provider: 01/22/21 23:23 Source: patient and family Mode of arrival: ambulatory Limitations: no limitations and altered mental status History of Present Illness: HPI Narrative: 70-year-old female has a history of congestive heart failure that daughter states over the last 2 days has had increasing shortness of breath. History is not available from patient due to his chronic dementia. Patient typically on 2 L and is requiring 5 L here. She is tachypneic here and is in distress. She states that she had some increased edema as well. She had a slight cough as well. No fevers. She also was concerned as she states she has been around her family which has had Covid. Associated symptoms: Deny abdominal pain, chest pain, fever(s), nausea or vomiting Review of Systems Const: Denies: fever(s), chills, body aches or change in appetite Eyes: Denies: blurry vision or eye discomfort ENMT: Denies: throat pain or dental pain Card: Denies: chest pain Resp: Reports: dyspnea and non-productive cough GI: Denies: abdominal pain, nausea, vomiting or diarrhea : Denies: dysuria Musc: Denies: neck pain or back pain Skin/Breast: Denies: rash Neuro: Denies: headache(s) Psych: Denies: depression Matthew/Lymph: Denies: easy bruising All/Imm: Denies: urticaria PFSH ED PFSH: Medical History Acute on chronic diastolic (congestive) heart failure Alzheimer disease Congestive heart failure COPD exacerbation Diabetes History of heart failure Hypernatremia Kidney disease Major depressive disorder, recurrent episode, moderate with anxious distress Near syncope Pulmonary edema Recurrent UTI SVT (supraventricular tachycardia) Urinary retention UTI (urinary tract infection) Surgical History Hx laparoscopic cholecystectomy Family History Brother Cancer Leukemia Sister Cancer female organs Social History Smoking and tobacco status: never smoked Alcohol intake: never Household members: children Marital status: / Current occupational status: disabled History of recent travel: No Physical Exam Const: COMMON NORMALS: negative for patient oriented x3 GENERAL APPEARANCE: in distress and ill appearing HENMT: COMMON NORMALS: normocephalic and atraumatic HEAD & SCALP: normocephalic and atraumatic Eye: COMMON NORMALS: Equal, round and reactive pupils present and EOMs intact bilaterally PUPIL: Yes Equal, round and reactive pupils present Neck/C-Spine: COMMON NORMALS: full ROM and supple Chest: COMMONS NORMALS: normal inspection of the chest and normal palpation of entire chest wall Resp: EFFORT & INSPECTION: Yes tachypneic and Yes labored AUSCULTATION: rales Cardio: COMMON NORMALS: regular rate, regular rhythm and No murmurs present (Cardio) RATE: regular rate RHYTHM: regular rhythm GI: COMMON NORMALS: Normal to inspection, nondistended, normoactive bowel sounds present, Soft to palpation, non-tender and no masses PALPATION: Yes Soft to palpation Extremity: COMMON NORMALS: normal to inspection and full ROM Neuro: COMMON NORMALS: moves all extremities and no focal motor deficits; negative for patient oriented x3 Psych: COMMON NORMALS: mental status grossly normal, Normal thought process present and cooperative THOUGHT PROCESS: Normal thought process present Skin: COMMON NORMALS: no rashes or lesions noted and no wounds GENERAL SKIN EXAM: no rashes or lesions noted Course Vital Signs: Vital signs: Vital Signs Pulse Rate 104 H 01/23/21 02:29 Respiratory Rate 35 H 01/23/21 02:29 Blood Pressure 116/95 01/23/21 02:29 Pulse Oximetry 92 01/23/21 02:29 MDM - SOB/Dyspnea MDM Narrative: Medical decision making narrative: Patient presents here with dyspnea along with cough history of CHF. CT shows possible pneumonia versus congestion. Patient was placed on BiPAP here as well. Patient is DNR/DNI. Spoke to the hospitalist will admit at this time. Her rapid Covid was negative and will do a send out Covid on her. Lab Data: Labs: Lab Results 01/22/21 01/22/21 01/22/21 Range/Units 22:11 23:40 23:40 WBC 4.6 (4.0-10.0) 10^3/ uL RBC 3.06 L (4.1-5.3) 10^6/u L Hgb 8.6 L (11.5-15.3) g/dL Hct 28.0 L (37.0-47.0) % MCV 91.5 (81-99) fL MCH 28.1 (28.0-34.0) pg MCHC 30.7 (30.0-36.0) g/dL RDW 15.5 H (12.1-15.1) % Plt Count 338 (130-400) 10^3/c mm MPV 9.6 (7.4-10.4) fL Neut % (Auto) 64.5 % Lymph % (Auto) 19.2 % [place] % (Auto) 13.1 % Eos % (Auto) 2.4 % Baso % (Auto) 0.2 % Neut # (Auto) 2.99 (1.8-7.7) 10^3/u L Lymph # (Auto) 0.9 (0.8-4.8) 10^3/u L [place] # (Auto) 0.6 (0.2-0.9) 10^3/u L Eos # (Auto) 0.1 (0.0-0.8) 10^3/u L Baso # (Auto) 0.0 (0.0-0.1) 10^3/u L Nucleated RBC % (a uto) 0 % Nucleated RBCs # 0.0 /100WBC PT (12.1-14.9) SECO NDS INR (0.8-1.2) APTT (23.9-36.7) SECO NDS Fibrinogen (174-498) mg/dL D-Dimer (0-0.59) ug/mIFE U Specimen Type Arterial Sample Site Radial, left ABG pH 7.44 (7.35-7.45) ABG pCO2 48.4 H (35-45) mmHg ABG pO2 71.7 L (80.0-100.0) mmH g ABG HCO3 32.5 H (22-26) mmol/L ABG Base Excess 7.3 H (-2.0-2.0) mmol/ L Jose Test Pos Hematocrit 28.7 L (37-47) % O2 Delivery Device Nc O2 Liters/Min 4.0 % FiO2 36.0 % Bath Steward/Stewardess ID [place] Sodium 142 (136-145) mmol/L Potassium 3.9 (3.5-5.1) mmol/L Chloride 104 (98-107) mmol/L Carbon Dioxide 28 (22-29) mmol/L Anion Gap 13.9 (5-19) BUN 11 (8-23) mg/dL Creatinine 0.4 L (0.5-0.9) mg/dL GFR Calculation 158.7 H (90-130) mL/min Glucose 98 (65-115) mg/dL Calculated Osmolal ity 293 (285-295) mOsm/k g Lactic Acid (0.5-2.2) mmol/L Calcium 8.3 L (8.5-10.5) mg/dL Total Bilirubin 0.3 (0.15-1.2) mg/dL AST 21 (0-32) U/L ALT 13 (0-33) U/L Alkaline Phosphata se 68 (35-105) IU/L Creatine Kinase 28 (26-192) U/L Troponin T Gen 5 n g/L (0-10) ng/L C-Reactive Protein 51.7 H (0.0-4.9) mg/L NT-Pro-B Natriuret Pep 1000 H (0-125) pg/mL Total Protein 6.4 L (6.6-8.7) g/dL Albumin 3.0 L (3.5-5.2) g/dL Globulin 3.4 (1.3-4.6) g/dL Procalcitonin 0.06 (0-0.5) ng/mL Influenza Type A A g (Negative) Influenza Type B A g (Negative) SARS-CoV-2 Ag (Rap id) (Negative) 01/22/21 01/22/21 01/22/21 Range/Units 23:40 23:40 23:40 WBC (4.0-10.0) 10^3/ uL RBC (4.1-5.3) 10^6/u L Hgb (11.5-15.3) g/dL Hct (37.0-47.0) % MCV (81-99) fL MCH (28.0-34.0) pg MCHC (30.0-36.0) g/dL RDW (12.1-15.1) % Plt Count (130-400) 10^3/c mm MPV (7.4-10.4) fL Neut % (Auto) % Lymph % (Auto) % [place] % (Auto) % Eos % (Auto) % Baso % (Auto) % Neut # (Auto) (1.8-7.7) 10^3/u L Lymph # (Auto) (0.8-4.8) 10^3/u L [place] # (Auto) (0.2-0.9) 10^3/u L Eos # (Auto) (0.0-0.8) 10^3/u L Baso # (Auto) (0.0-0.1) 10^3/u L Nucleated RBC % (a uto) % Nucleated RBCs # /100WBC PT (12.1-14.9) SECO NDS INR (0.8-1.2) APTT (23.9-36.7) SECO NDS Fibrinogen (174-498) mg/dL D-Dimer (0-0.59) ug/mIFE U Specimen Type Sample Site ABG pH (7.35-7.45) ABG pCO2 (35-45) mmHg ABG pO2 (80.0-100.0) mmH g ABG HCO3 (22-26) mmol/L ABG Base Excess (-2.0-2.0) mmol/ L Jose Test Hematocrit (37-47) % O2 Delivery Device O2 Liters/Min % FiO2 % Bath Steward/Stewardess ID Sodium (136-145) mmol/L Potassium (3.5-5.1) mmol/L Chloride (98-107) mmol/L Carbon Dioxide (22-29) mmol/L Anion Gap (5-19) BUN (8-23) mg/dL Creatinine (0.5-0.9) mg/dL GFR Calculation (90-130) mL/min Glucose (65-115) mg/dL Calculated Osmolal ity (285-295) mOsm/k g Lactic Acid 0.9 (0.5-2.2) mmol/L Calcium (8.5-10.5) mg/dL Total Bilirubin (0.15-1.2) mg/dL AST (0-32) U/L ALT (0-33) U/L Alkaline Phosphata se (35-105) IU/L Creatine Kinase (26-192) U/L Troponin T Gen 5 n g/L 22 H (0-10) ng/L C-Reactive Protein (0.0-4.9) mg/L NT-Pro-B Natriuret Pep (0-125) pg/mL Total Protein (6.6-8.7) g/dL Albumin (3.5-5.2) g/dL Globulin (1.3-4.6) g/dL Procalcitonin (0-0.5) ng/mL Influenza Type A A g Negative (Negative) Influenza Type B A g Negative (Negative) SARS-CoV-2 Ag (Rap id) (Negative) 01/22/21 01/23/21 Range/Units 23:40 00:21 WBC (4.0-10.0) 10^3/ uL RBC (4.1-5.3) 10^6/u L Hgb (11.5-15.3) g/dL Hct (37.0-47.0) % MCV (81-99) fL MCH (28.0-34.0) pg MCHC (30.0-36.0) g/dL RDW (12.1-15.1) % Plt Count (130-400) 10^3/c mm MPV (7.4-10.4) fL Neut % (Auto) % Lymph % (Auto) % [place] % (Auto) % Eos % (Auto) % Baso % (Auto) % Neut # (Auto) (1.8-7.7) 10^3/u L Lymph # (Auto) (0.8-4.8) 10^3/u L [place] # (Auto) (0.2-0.9) 10^3/u L Eos # (Auto) (0.0-0.8) 10^3/u L Baso # (Auto) (0.0-0.1) 10^3/u L Nucleated RBC % (a uto) % Nucleated RBCs # /100WBC PT 15.10 H (12.1-14.9) SECO NDS INR 1.15 (0.8-1.2) APTT 38.2 H (23.9-36.7) SECO NDS Fibrinogen 594 H (174-498) mg/dL D-Dimer 3.43 H (0-0.59) ug/mIFE U Specimen Type Sample Site ABG pH (7.35-7.45) ABG pCO2 (35-45) mmHg ABG pO2 (80.0-100.0) mmH g ABG HCO3 (22-26) mmol/L ABG Base Excess (-2.0-2.0) mmol/ L Jose Test Hematocrit (37-47) % O2 Delivery Device O2 Liters/Min % FiO2 % Bath Steward/Stewardess ID Sodium (136-145) mmol/L Potassium (3.5-5.1) mmol/L Chloride (98-107) mmol/L Carbon Dioxide (22-29) mmol/L Anion Gap (5-19) BUN (8-23) mg/dL Creatinine (0.5-0.9) mg/dL GFR Calculation (90-130) mL/min Glucose (65-115) mg/dL Calculated Osmolal ity (285-295) mOsm/k g Lactic Acid (0.5-2.2) mmol/L Calcium (8.5-10.5) mg/dL Total Bilirubin (0.15-1.2) mg/dL AST (0-32) U/L ALT (0-33) U/L Alkaline Phosphata se (35-105) IU/L Creatine Kinase (26-192) U/L Troponin T Gen 5 n g/L (0-10) ng/L C-Reactive Protein (0.0-4.9) mg/L NT-Pro-B Natriuret Pep (0-125) pg/mL Total Protein (6.6-8.7) g/dL Albumin (3.5-5.2) g/dL Globulin (1.3-4.6) g/dL Procalcitonin (0-0.5) ng/mL Influenza Type A A g (Negative) Influenza Type B A g (Negative) SARS-CoV-2 Ag (Rap id) Negative (Negative) Imaging Data^: CXR: Attestation: I personally reviewed and interpreted this imaging study as follows: Radiologist's impression: [address] [place] [address] XRay Report Signed Patient: Florence Caban Unit #: [id number] : 1950 Age/Sex: 70 / F ADM Date: 01/22/21 Loc: ER Room/Bed: Attending Dr: Ordering Provider/Ordering MD: Rosmery Milner Date of Service: 01/22/21 Procedure(s): XR chest 1V portable [id number] Accession Number(s): [id number] Report Number: [id number] PROCEDURE INFORMATION: Exam: XR Chest Exam date and time: 01/22/2021 9:31 PM Age: 70 years old Clinical indication: Shortness of breath and wheezing; Patient HX: SOB with wheezing. TECHNIQUE: Imaging protocol: XR of the chest. Views: 1 view. COMPARISON: CR XR chest 1V portable [id number] 05/09/2020 12:57 PM FINDINGS: Lungs: Interstitial and airspace opacities are seen in the right suprahilar and left infrahilar regions, which may be pneumonia. Pleural spaces: A small left pleural effusion is present. No pneumothorax is detected. Heart/Mediastinum: Unremarkable. No cardiomegaly. Bones/joints: Spinal fusion hardware is again seen in the lower cervical spine. XR/XR chest 1V portable [id number] IMPRESSION: 1. Right suprahilar and left infrahilar opacities may be secondary to pneumonia, correlate clinically. 2. Small left pleural effusion. Dictated By: Erik Gonzales MD Signed By: Erik Gonzales MD Signed Date/Time: 01/23/2134 DD/ CT Chest: Attestation: I personally reviewed and interpreted this imaging study as follows: Radiologist's impression: [address] [address] [address] Scan Report Signed Patient: Florence Caban Unit #: [id number] : 1950 Age/Sex: 70 / F ADM Date: 01/22/21 Loc: ER Room/Bed: Attending Dr: Ordering Provider/Ordering MD: Cora Ta MD Date of Service: 01/23/21 Procedure(s): CT angio chest PE protcl [id number] Accession Number(s): [id number] Report Number: [id number] PROCEDURE INFORMATION: Exam: CTA Chest With Contrast Exam date and time: 01/23/2021 1:14 AM Age: 70 years old Clinical indication: Shortness of breath; Prior surgery; Surgery type: Gb; Patient HX: Sob/hypoxia. Patient non verbal and unable to follow breathing instructions. TECHNIQUE: Imaging protocol: Computed tomographic angiography of the chest with contrast. 3D rendering (Not supervised by radiologist): MIP and/or 3D reconstructed images were created by the technologist. Radiation optimization: All CT scans at this facility use at least one of these dose optimization techniques: automated exposure control; mA and/or kV adjustment per patient size (includes targeted exams where dose is matched to clinical indication); or iterative reconstruction. Contrast material: OMNI 350; Contrast volume: 53 ml; Contrast route: INTRAVENOUS (IV); COMPARISON: CT angio chest PE protcl [id number] 05/09/2020 2:58 PM RADIATION DOSE METRICS: Total DLP (mGy-cm): 581.41 FINDINGS: Pulmonary arteries: Normal. No pulmonary emboli. Aorta: Unremarkable. No aortic aneurysm. No aortic dissection. Lungs: There are patchy areas of peripheral ground-glass density with interstitial prominence throughout both lungs consistent with viral or atypical pneumonia. Pleural spaces: There is a moderate left pleural effusion. Heart: Cardiomegaly with coronary artery and valvular calcifications. Lymph nodes: Calcified lymph nodes in the mediastinum and ema may be due to prior granulomatous disease or treated lymphoma. Bones/joints: There has been a fusion of the lower cervical spine which appears intact. Soft tissues: Unremarkable. CT/CT angio chest PE protcl [id number] IMPRESSION: Patchy ground-glass density throughout both lungs suspicious for viral or atypical pneumonia. Moderate left pleural effusion. Cardiomegaly. Evidence of previously treated lymphoma or granulomatous disease. Radiation Dose CTDIVOL = (mGy): DLP = 581.41 (mGy-cm) Dictated By: Grey Jean MD Signed By: Grey Jean MD Signed Date/Time: 01/23/21250 DD/ 8 EKG Data^: EKG 1: Attestation: I personally reviewed and interpreted this EKG as follows: EKG Interpretation Date: 01/22/21 EKG interpretation time: 23:35 Interpretation: nsr hr [address] or t wave abnormalities qrs 76 qtc 399 Discharge Plan Discharge Patient Disposition: Admitted As Inpatient Clinical Impression: CHF (congestive heart failure) Condition: Stable Prescriptions: No Action furosemide 20 mg tablet 20 mg PO DAILY RF: 0 pioglitazone [Actos] 45 mg tablet 45 mg PO DAILY RF: 0 methenamine hippurate 1 gram tablet 1 g PO BID Qty: 60 RF: 12 hydrocodone-acetaminophen 5-325 mg tablet 1 tab PO Q8H PRNRF: 0 Narcan 4 mg/actuation spray,non-aerosol 4 mg intranasal Q3M PRNRF: 0 quetiapine [Seroquel] 25 mg tablet 25 mg PO DAILY RF: 0 memantine [Namenda] 10 mg tablet 10 mg PO BID RF: 0 galantamine 12 mg tablet 12 mg PO BID RF: 0 sertraline [Zoloft] 50 mg tablet 50 mg PO QAM Qty: 90 RF: 2 simvastatin 20 mg tablet 20 mg PO DAILY Qty: 30 RF: 0 (DME) blood sugar diagnostic [[employer] Ultra Blue Test Strip] Strip See Rx Instructions .ROUTE .MEDSUPPLY Qty: 180 RF: 0 glipizide 5 mg tablet 5 mg PO DAILY RF: 0 potassium chloride 10 mEq capsule, extended release 10 meq PO BID RF: 0 Novolog U-100 Insulin aspart 100 unit/mL solution See Rx Instructions .ROUTE .COMPLEX RF: 0 Lantus Solostar U-100 Insulin 100 unit/mL (3 mL) insulin pen 10 unit SUBCUT QAM RF: 0 furosemide 40 mg Tablet 40 mg PO DAILY@0800 Qty: 30 RF: 0 Referrals: Megan Flower [Primary Care Provider] - Coding Level of Care Code ED Correctional Officer Captain for Chg Fwd Exam Comprehensive
[2021-01-23 00:42] LABS: Alanine Aminotransferase 13 U/L (0-33); Alkaline Phosphatase 68 IU/L (35-105); Anion Gap 13.9 (5-19); Aspartate Amino Transferase 21 U/L (0-32); Blood Urea Nitrogen 11 mg/dL (8-23); C Reactive Protein 51.7 mg/L (0.0-4.9); Calcium 8.3 mg/dL (8.5-10.5); Carbon Dioxide 28 mmol/L (22-29); Chloride 104 mmol/L (98-107); Creatine Phosphokinase 28 U/L (26-192); Globulin 3.4 g/dL (1.3-4.6); Glomerular Filtration Rate 158.7 mL/min (90-130); Glucose 98 mg/dL (65-115); Osmolality Calculated 293 mOsm/kg (285-295); Potassium 3.9 mmol/L (3.5-5.1); Sodium 142 mmol/L (136-145); Total Bilirubin 0.3 mg/dL (0.15-1.2); Total Protein 6.4 g/dL (6.6-8.7)
[2021-01-23 00:47] LABS: Creatinine Clr Calc Pharmacy 72.5037
[2021-01-23 01:00] LABS: INR 1.15 (0.8-1.2)
[2021-01-23 01:01] LABS: Partial Thromboplastin Time 38.2 SECONDS (23.9-36.7)
[2021-01-23 01:03] LABS: D Dimer 3.43 ug/mIFEU (0-0.59)
[2021-01-23] MEDS: dexamethasone 10 mg/mL INJ IVP (01:05)
[2021-01-23] MEDS: azithromycin 500 MG in sodium chloride 0.9% 250 ML 250 MG IV (01:06)
[2021-01-23] MEDS: cefTRIAXone 1,000 MG in sodium chloride 0.9% (plus) 50 ML 100 MG IV (01:06)
--- NOTE | 2021-01-23 01:14 | CTR_ITS ---
PROCEDURE INFORMATION: Exam: CTA Chest With Contrast Exam date and time: 01/23/2021 1:14 AM Age: 70 years old Clinical indication: Shortness of breath; Prior surgery; Surgery type: Gb; Patient HX: Sob/hypoxia. Patient non verbal and unable to follow breathing instructions. TECHNIQUE: Imaging protocol: Computed tomographic angiography of the chest with contrast. 3D rendering (Not supervised by radiologist): MIP and/or 3D reconstructed images were created by the technologist. Radiation optimization: All CT scans at this facility use at least one of these dose optimization techniques: automated exposure control; mA and/or kV adjustment per patient size (includes targeted exams where dose is matched to clinical indication); or iterative reconstruction. Contrast material: OMNI 350; Contrast volume: 53 ml; Contrast route: INTRAVENOUS (IV); COMPARISON: CT angio chest PE protcl [id number] 05/09/2020 2:58 PM RADIATION DOSE METRICS: Total DLP (mGy-cm): 581.41 FINDINGS: Pulmonary arteries: Normal. No pulmonary emboli. Aorta: Unremarkable. No aortic aneurysm. No aortic dissection. Lungs: There are patchy areas of peripheral ground-glass density with interstitial prominence throughout both lungs consistent with viral or atypical pneumonia. Pleural spaces: There is a moderate left pleural effusion. Heart: Cardiomegaly with coronary artery and valvular calcifications. Lymph nodes: Calcified lymph nodes in the mediastinum and ema may be due to prior granulomatous disease or treated lymphoma. Bones/joints: There has been a fusion of the lower cervical spine which appears intact. Soft tissues: Unremarkable. CT/CT angio chest PE protcl [id number] IMPRESSION: Patchy ground-glass density throughout both lungs suspicious for viral or atypical pneumonia. Moderate left pleural effusion. Cardiomegaly. Evidence of previously treated lymphoma or granulomatous disease. Radiation Dose CTDIVOL = (mGy): DLP = 581.41 (mGy-cm)
[2021-01-23 01:15] LABS: Fibrinogen 594 mg/dL (174-498)
[2021-01-23] MEDS: iohexol 350 mg/mL 100 mL Btl IV (01:38)
--- NOTE | 2021-01-23 01:43 | PM.HP ---
Providers/Chief Complaint Primary Care Provider: Megan Flower Chief Complaint: abnormal labs/low o2 History of Present Illness Florence Caban is a 70 year old female who has history of end-stage dementia, presented today with chief complaint of worsening shortness of breath. At home whole family has been suffering with COVID-19 symptoms. Ms. marshall started getting worse with shortness of breath, fluid gain, orthopnea, PND for last 2 to 3 days. At home she uses 2 L of oxygen. Endorsing subjective fevers, denies nausea, vomiting however endorsing diarrhea. Currently requiring 5 L of nasal cannula. She is extremely tachypneic pressure 1835, requested RT to start BiPAP and use morphine to decrease air hunger, she was diagnosed with sepsis secondary to pneumonia, CHF exacerbation. No leukocytosis hemoglobin low 8.6. In the ER she received ceftriaxone and azithromycin along Decadron and albuterol treatment. Her symptoms did not resolve at the time my evaluation she was breathing 35-39b/min. Lungs: Interstitial and airspace opacities are seen in the right suprahilar and left infrahilar regions, which may be pneumonia. Pleural spaces: A small left pleural effusion is present. No pneumothorax is detected. Heart/Mediastinum: Unremarkable. No cardiomegaly. Bones/joints: Spinal fusion hardware is again seen in the lower cervical spine. XR/XR chest 1V portable [id number] IMPRESSION: 1. Right suprahilar and left infrahilar opacities may be secondary to pneumonia, correlate clinically. 2. Small left pleural effusion Review of Systems Const: Reports: fever(s), chills, body aches, change in appetite, fatigue and malaise Eyes: Denies: change in vision ENMT: Denies: throat pain Card: Reports: swelling of feet/ankles and dyspnea on exertion; Denies: chest pain Resp: Reports: dyspnea and non-productive cough GI: Reports: nausea and diarrhea; Denies: abdominal pain : Denies: flank pain Musc: Denies: neck pain Skin/Breast: Reports: rash Neuro: Denies: headache(s) Psych: Reports: anxiety Endo: Denies: polyuria Matthew/Lymph: Reports: easy bruising and easy bleeding All/Imm: Denies: urticaria Medications/Allergies Home Medications Medication Instructions Recorded Confirmed Last Taken Type galantamine 12 mg tablet 12 mg PO BID 08/31/19 12/27/20 05/09/20 History memantine 10 mg tablet 10 mg PO BID 08/31/19 12/27/20 05/09/20 History sertraline 50 mg tablet 50 mg PO QAM #90 tab 08/31/19 12/27/20 05/09/20 Rx blood sugar diagnostic #180 each 10/12/19 12/27/20 Unknown Rx simvastatin 20 mg tablet 20 mg PO DAILY #30 tab 05/02/20 12/27/20 05/08/20 Rx Lantus Solostar U-100 Insulin 10 unit SUBCUT QAM 05/09/20 12/27/20 05/08/20 History Novolog U-100 Insulin aspart See Rx Instructions .ROUTE .COMPLEX 05/09/20 12/27/20 Unknown History glipizide 5 mg PO DAILY 05/09/20 12/27/20 05/09/20 History potassium chloride 10 meq PO BID 05/09/20 12/27/20 05/09/20 History furosemide 40 mg PO DAILY@0800 #30 tab 05/11/20 12/27/20 Unknown Rx hydrocodone 5 mg-acetaminophen 325 1 tab PO Q8H PRN 08/20/20 12/27/20 Unknown History mg tablet naloxone 4 mg/actuation nasal spray 4 mg INTRANASAL Q3M PRN 08/20/20 12/27/20 Unknown History quetiapine 25 mg tablet 25 mg PO DAILY 08/20/20 12/27/20 Unknown History furosemide 20 mg tablet 20 mg PO DAILY 09/12/20 12/27/20 Unknown History methenamine hippurate 1 gram tablet 1 g PO BID #60 tab 09/12/20 12/27/20 Unknown Rx pioglitazone 45 mg tablet 45 mg PO DAILY 09/12/20 12/27/20 Unknown History Allergies Allergy/AdvReac Type Severity Reaction Status Date / Time venlafaxine [From Effexor] Allergy Intermediate ALGY-Hives Verified 01/22/21 21:27 PFSH Acute PFSH: Medical History (Updated 01/23/21 @ 02:41 by Magali Montgomery MD) Acute on chronic diastolic (congestive) heart failure Alzheimer disease Congestive heart failure COPD exacerbation Diabetes History of heart failure Hypernatremia Kidney disease Major depressive disorder, recurrent episode, moderate with anxious distress Near syncope Pulmonary edema Recurrent UTI SVT (supraventricular tachycardia) Urinary retention UTI (urinary tract infection) Surgical History Hx laparoscopic cholecystectomy Family History Brother Cancer Leukemia Sister Cancer female organs Social History Smoking and tobacco status: never smoked Alcohol intake: never Household members: children Marital status: / Current occupational status: disabled History of recent travel: No Vitals/I&O/Wt Last Vital Signs Pulse 110 H 01/23/21 01:00 Resp 36 H 01/23/21 01:00 BP 110/81 01/23/21 00:52 Pulse Ox 95 01/23/21 01:00 Weight last 48 hrs Weight 81.647 kg Physical Exam Narrative: EXAM NARRATIVE: elderly female who was seen in the ER Tachypneic 35-40 respiratory rate Patient has dementia not able to carry any conversation during my evaluation Oriented to herself Acute respiratory distress S1, S2 sinus tachycardia Soft abdomen Lower extremity 2+ pitting edema Neuro exam limited Daughter at the bedside No joint swelling Skin rash noted on right subclavicular area and around her knees Chronic Alexis catheter draining concentrated urine Data : 01/22/21 23:40 01/22/21 23:40 Micro: Microbiology 01/22/21 23:42 Blood Culture - Preliminary Blood SPECIMEN COLLECTED 01/22/21 23:40 Blood Culture - Preliminary Blood SPECIMEN COLLECTED A&P Assessment and plan (1) Acute on chronic diastolic (congestive) heart failure: Status: Acute (2) COPD exacerbation: Status: Acute (3) Alzheimer disease: Status: Acute (4) Diabetes: Status: Acute (5) Community acquired pneumonia: Status: Acute Additional A&P Information Sepsis secondary to community-acquired pneumonia Chest x-ray findings consistent with pneumonia Start ceftriaxone and azithromycin I will put her on BiPAP to decrease work of breathing Use morphine to decrease air hunger Respiratory rate 35-40, As per the daughter she does not want any aggressive intervention however agreeable with BiPAP, patient is DNR/DNI CHF exacerbation Acute diastolic congestive heart exacerbation due to pneumonia We will keep her on Bumex 1 mg p.o. daily Monitor urine output Does have aortic stenosis murmur clinically Acute on chronic hypoxia Currently requiring 5 L at home uses 2 L, CTA chest pending, Covid PCR pending Acute on chronic normocytic anemia Blood pressure stable, hemoglobin 8.6 down from 10 DNR/DNI Advance diet once she is more awake and alert DVT prophylaxis Lovenox Attestations Medical Necessity Statement*: Anticipating stay in the hospital cross more than 2 midnights Time Spent in Patient Care: 16 - 35 minutes Coding Level of Care Code Acute Business Manager for Chg Fwd Diagnoses Acute on chronic diastolic (congestive) heart failure I50.33 COPD exacerbation J44.1 Alzheimer disease G30.9; F02.80 Diabetes E11.9 Community acquired pneumonia J18.9
[2021-01-23 03:27] LABS: Procalcitonin 0.06 ng/mL (0-0.5)
[2021-01-23 03:48] LABS: Ferritin 426 ng/mL (15-150)
[2021-01-23] MEDS: enoxaparin 40 mg/0.4 mL Syringe SUBCUT (05:14)
--- NOTE | 2021-01-23 09:38 | PC.PHAR ---
PT UNABLE TO VERIFY MEDICATIONS-PTS DAUGHTER SUSIE [phone] VERIFIED MEDICATIONS
--- NOTE | 2021-01-23 12:12 | P.PN_ITS ---
Vitals/I&O/Wt Last Vital Signs Pulse 88 01/23/21 11:23 Resp 24 H 01/23/21 11:23 BP 138/72 01/23/21 11:23 Pulse Ox 96 01/23/21 11:23 01/22/21 01/23/21 01/23/21 22:59 06:59 14:59 Intake Total 300 / 300 Balance 300 / 300 Weight last 48 hrs Weight 81.647 kg Physical Exam HENMT: COMMON NORMALS: normocephalic and atraumatic HEAD & SCALP: normocephalic and atraumatic Resp: OTHER: Diminished air entry b/l with b/l fine basal crackles. Cardio: COMMON NORMALS: regular rate, regular rhythm, S1 normal heart sound present, S2 normal heart sound present, No gallops present (Cardio), No murmurs present (Cardio), No rub (Cardio) and Peripheral pulses 2+ throughout RATE: regular rate RHYTHM: regular rhythm HEART SOUNDS: S1 normal heart sound present and S2 normal heart sound present PERIPHERAL PULSES: Peripheral pulses 2+ throughout GI: COMMON NORMALS: Normal to inspection, nondistended, normoactive bowel sounds present, Soft to palpation, non-tender, No hepatosplenomegaly present and no masses AUSCULTATION: Yes normoactive bowel sounds PALPATION: Yes Soft to palpation and Yes No hepatosplenomegaly present RECTAL EXAM: deferred Extremity: COMMON NORMALS: no clubbing, cyanosis or edema and no pedal edema Data : 01/22/21 23:40 01/22/21 23:40 Micro: Microbiology 01/22/21 23:42 Blood Culture - Preliminary Blood SPECIMEN COLLECTED 01/22/21 23:40 Blood Culture - Preliminary Blood SPECIMEN COLLECTED A&P Assessment and plan (1) Acute on chronic diastolic (congestive) heart failure: Status: Acute (2) COPD exacerbation: Status: Acute (3) Alzheimer disease: Status: Acute (4) Diabetes: Status: Acute (5) Community acquired pneumonia: Status: Acute Additional A&P Information Sepsis secondary to COVID PNA Chest x-ray findings consistent with pneumonia Start ceftriaxone and azithromycin I will put her on BiPAP to decrease work of breathing Use morphine to decrease air hunger Respiratory rate 35-40, As per the daughter she does not want any aggressive intervention however agreeable with BiPAP, patient is DNR/DNI CHF exacerbation Acute diastolic congestive heart exacerbation due to pneumonia We will keep her on Bumex 1 mg p.o. daily Monitor urine output Does have aortic stenosis murmur clinically Acute on chronic hypoxia Currently requiring 5 L at home uses 2 L, CTA chest pending, Covid PCR pending Acute on chronic normocytic anemia Blood pressure stable, hemoglobin 8.6 down from 10 DNR/DNI Advance diet once she is more awake and alert DVT prophylaxis Lovenox Attestations Medical Necessity Statement*: Patient needs to be in hospital for the management of COVID PNA and sepsis Coding Level of Care Code Acute Nursery Manager for Chg Fwd Diagnoses Acute on chronic diastolic (congestive) heart failure I50.33 COPD exacerbation J44.1 Alzheimer disease G30.9; F02.80 Diabetes E11.9 Community acquired pneumonia J18.9
[2021-01-23 16:39] LABS: Coronavirus Test Green County Detected
[2021-01-23] MEDS: dexamethasone 10 mg/mL INJ 6 MG IVP (22:46)
[2021-01-23] MEDS: remdesivir 200 MG in sodium chloride 0.9% (100 ml) 100 ML 100 MG IV (22:47)
[2021-01-24] VITALS (8 sets, daily range): BP systolic 122–171; BP diastolic 68–88; PULSE 68–104; RESP 16–20; TEMP 36.8–37.1; O2SAT 90–96
[2021-01-24] MEDS: cefTRIAXone 1,000 MG in sodium chloride 0.9% (plus) 50 ML 100 MG IV (01:14)
[2021-01-24] MEDS: enoxaparin 40 mg/0.4 mL Syringe SUBCUT (05:30)
[2021-01-24 05:49] LABS: Hematocrit 29.3 % (37.0-47.0); Hemoglobin 8.5 g/dL (11.5-15.3); Lymphocytes # 0.7 10^3/uL (0.8-4.8); Lymphocytes % 20.1 %; Mean Corpuscular Hemoglobin 27.8 pg (28.0-34.0); Mean Corpuscular Volume 95.8 fL (81-99); Mean Platelet Volume 9.6 fL (7.4-10.4); Monocytes # 0.3 10^3/uL (0.2-0.9); Monocytes % 9.2 %; Neutrophils # 2.43 10^3/uL (1.8-7.7); Neutrophils % 69.6 %; Nucleated Red Blood Cells % 0 %; Platelet Count 366 10^3/cmm (130-400); Red Blood Count 3.06 10^6/uL (4.1-5.3); Red Cell Distribution Width 15.6 % (12.1-15.1); White Blood Count 3.5 10^3/uL (4.0-10.0)
[2021-01-24 06:05] LABS: Anion Gap 12.9 (5-19); Blood Urea Nitrogen 20 mg/dL (8-23); Calcium 8.6 mg/dL (8.5-10.5); Carbon Dioxide 30 mmol/L (22-29); Chloride 106 mmol/L (98-107); Creatinine Clr Calc Pharmacy 72.5037; Glomerular Filtration Rate 122.7 mL/min (90-130); Glucose 218 mg/dL (65-115); Osmolality Calculated 309 mOsm/kg (285-295); Potassium 3.9 mmol/L (3.5-5.1); Sodium 145 mmol/L (136-145)
[2021-01-24 06:11] LABS: Slide Review Slide Review Perform
--- NOTE | 2021-01-24 10:36 | PC.CHAP ---
Pastoral Care Encounter/Spiritual Assessment Type of Contact [] Declined test department helper visit [] Patient/Family/Request visit [] Outpatient visit [] Follow-up visit [] Physician referral [] Code/Alert [] Routine visit [] Staff referral [] Actively dying [] Patient sleeping [] Family support [] [] Out of room [] Palliative care [] [] Receiving care in room [] Pre-surgical visit [] Trauma [] Long length of stay [] ICU visit [x] Other: Covid Relational/Emotional Strength [] Patient feels connected with others/family/visitors/staff [] Distress [] Loneliness/isolation [] Abandonment Spirituality of Patient [] Person of Elma [] Attends Yazidism of their Elma [] Believes in Prayer [] Reads Bible or Amish materials [] There are Spiritual issues to be addressed Slag Worker Interventions [] Prayer [] Active listening [] Non-anxious presence [] Spiritual/emotional support [] Crisis/trauma care [] Spiritual counseling [] Bereavement support [] Provided bereavement packet [] Provided Bible/devotional materials [] Provided toy/stuffed animal, coloring book to patient or family member [] Provided Communion [] Anointing/Ramer [] Salvation [] Completed spiritual assessment [] Other: Impact on Illness or Injury [] Angry [] Fearful [] Anxious [] Often cries [] Exhaustion [] Unable to work [] Unable to attend voodoo [] Unable to walk/stand [] Unable to read [] Unable to drive [] Unable to eat/drink [] Unable to sleep [] Unable to be with family [] Patient intubated [] Other: Summary Covid Time spent with patient 5 mins
--- NOTE | 2021-01-24 11:25 | PM.PN ---
Subjective Subjective: Interval history: Patient was seen and examined this morning, currently she is saturating well on 6 Ls oxygen.Has remained afebrile.Other vitals and labs have been reviewed. Medications: Reviewed: Yes Vitals/I&O/Wt Last Vital Signs Temp 98.7 F 01/24/21 07:36 Pulse 104 H 01/24/21 08:10 Resp 20 H 01/24/21 07:36 BP 122/83 01/24/21 07:36 Pulse Ox 95 01/24/21 08:10 01/23/21 01/24/21 01/24/21 22:59 06:59 14:59 Intake Total 150 / 150 Output Total 750 / 750 450 / 1200 Balance -750 / -750 -450 / -1200 150 / 150 Weight last 48 hrs Weight 81.647 kg Weight 81.647 kg Physical Exam HENMT: COMMON NORMALS: normocephalic and atraumatic HEAD & SCALP: normocephalic and atraumatic Resp: OTHER: Diminished air entry b/l with b/l fine basal crackles. Cardio: COMMON NORMALS: regular rate, regular rhythm, S1 normal heart sound present, S2 normal heart sound present, No gallops present (Cardio), No rub (Cardio) and Peripheral pulses 2+ throughout RATE: regular rate RHYTHM: regular rhythm HEART SOUNDS: S1 normal heart sound present and S2 normal heart sound present PERIPHERAL PULSES: Peripheral pulses 2+ throughout OTHER: Grade 3 ejection systolic murmur in aortic area GI: COMMON NORMALS: Normal to inspection, nondistended, normoactive bowel sounds present, Soft to palpation, non-tender, No hepatosplenomegaly present and no masses AUSCULTATION: Yes normoactive bowel sounds PALPATION: Yes Soft to palpation and Yes No hepatosplenomegaly present RECTAL EXAM: deferred Extremity: COMMON NORMALS: no clubbing, cyanosis or edema and no pedal edema Data : 01/24/21 05:38 01/24/21 05:38 Micro: Microbiology 01/22/21 23:42 Blood Culture - Preliminary Blood NEGATIVE TO DATE 01/22/21 23:40 Blood Culture - Preliminary Blood NEGATIVE TO DATE A&P Assessment and plan (1) Acute on chronic diastolic (congestive) heart failure: Status: Acute (2) COPD exacerbation: Status: Acute (3) Alzheimer disease: Status: Acute (4) Diabetes: Status: Acute (5) Community acquired pneumonia: Status: Acute Additional A&P Information Sepsis secondary to COVID PNA Chest x-ray findings consistent with pneumonia D-dimer ESR CRP Ferritin Procalcitonin ABG Remdesivir of 5 days course Dexamethasone 6 mg IV daily for 10-day Advair 1 Puff inhalation twice daily Budesonide twice daily Albuterol 2 puffs inhalation every 4 hours On ceftriaxone and azithromycin CHF exacerbation Acute diastolic congestive heart exacerbation due to pneumonia Bumex 1 mg p.o. daily Monitor I/O Acute on chronic hypoxia Currently requiring 5 L at home uses 2 L, CTA chest pending, Covid PCR pending Acute on chronic normocytic anemia Blood pressure stable, hemoglobin 8.6 down from 10 DNR/DNI Advance diet once she is more awake and alert DVT prophylaxis Lovenox Attestations Medical Necessity Statement*: Patient needs to be in hospital for management of Covid pneumonia. Coding Level of Care Code Acute Grading Machine Feeder for Reginald Fwd Diagnoses Acute on chronic diastolic (congestive) heart failure I50.33 COPD exacerbation J44.1 Alzheimer disease G30.9; F02.80 Diabetes E11.9 Community acquired pneumonia J18.9
[2021-01-24] MEDS: remdesivir 100 MG in sodium chloride 0.9% (100 ml) 100 ML IV (18:22)
[2021-01-24] MEDS: dexamethasone 10 mg/mL INJ 6 MG IVP (20:39)
[2021-01-24] MEDS: albuterol 8 gm MDI 2 PUFF INHALATION (22:07)
[2021-01-25] VITALS (13 sets, daily range): BP systolic 128–159; BP diastolic 64–79; PULSE 0–89; RESP 14–22; TEMP 36.5–36.8; O2SAT 90–95
[2021-01-25] MEDS: cefTRIAXone 1,000 MG in sodium chloride 0.9% (plus) 50 ML 100 MG IV (00:56)
[2021-01-25] MEDS: enoxaparin 40 mg/0.4 mL Syringe SUBCUT (03:28)
--- NOTE | 2021-01-25 04:57 | PC.NURSE ---
Shift Note Frequent safety and comfort rounds continue. Orders and/or nursing care completed as indicated. Patient monitored for response to intervention and treatments including bipap, patient had removed bipap once this shift. Education provided includes[need for bipap to maintain appropriate 02 saturation and assist with breathing, patient non-verbal and according to daughter this has been baseline for patient for several years, patient unable to give indication of understanding, therefore closer monitoring to ensure bipap remains in place at all times, Will continue to monitor. for current condition, wounds and positioning, patient not opening mouth for oral care or oral intake, multiple attempts made this shift, lung sunds coarse throughout, repositioned every 2 hours with 2 staff assist and patient dependent on staff for all movements. had 1 small bowel movement, soft and brown, hygiene provided.
--- NOTE | 2021-01-25 09:00 | PC.NURSE ---
Patient is unable to take her medications. Patient is sitting straight up in bed and when she takes a sip of water through her straw she immediately coughs. Dr. Fleming made aware.
[2021-01-25] MEDS: albuterol 8 gm MDI 2 PUFF INHALATION ×3 (11:00→23:37)
--- NOTE | 2021-01-25 11:56 | PC.NUTR ---
Nutrition assessment completed due to wounds. Notified Dr. Fleming of recommendation for COMPETITIVE INTELLIGENCE MANAGER eugenia and that pt has had no po intake. Will add Glucerna with meals for additional kcal/protein, however appropriate consistency to be determined by COMPETITIVE INTELLIGENCE MANAGER evxiomy if ordered. Recommend to encourage po intakes of meals/supplements and assist as needed. See RD assessment for further details.
[2021-01-25] MEDS: azithromycin 500 MG in sodium chloride 0.9% 250 ML 250 MG IV (12:28)
[2021-01-25] MEDS: bumetanide 0.25 mg/mL SDV 4 mL 1 MG IV (12:28)
--- NOTE | 2021-01-25 14:22 | P.PN_ITS ---
Subjective Subjective: Interval history: Patient was seen and examined this morning, currently she is saturating well on 6 Ls oxygen.Poor oral intake, mild agitation due to severe end-stage dementia.We will start her on maintenance IV fluids D5Ns 30 cc/hr. Medications: Reviewed: Yes Vitals/I&O/Wt Last Vital Signs Temp 97.8 F 01/25/21 11:54 Pulse 64 01/25/21 11:54 Resp 16 01/25/21 11:54 BP 134/67 01/25/21 11:54 Pulse Ox 95 01/25/21 11:54 01/24/21 01/25/21 01/25/21 22:59 06:59 14:59 Intake Total 220 / 610 50 / 660 250 / 250 Output Total 350 / 350 Balance -130 / 260 50 / 310 250 / 250 Weight last 48 hrs Weight 81.647 kg Physical Exam HENMT: COMMON NORMALS: normocephalic and atraumatic HEAD & SCALP: normocephalic and atraumatic Resp: OTHER: Diminished air entry b/l with b/l fine basal crackles. Cardio: COMMON NORMALS: regular rate, regular rhythm, S1 normal heart sound present, S2 normal heart sound present, No gallops present (Cardio), No rub (Cardio) and Peripheral pulses 2+ throughout RATE: regular rate RHYTHM: regular rhythm HEART SOUNDS: S1 normal heart sound present and S2 normal heart sound present PERIPHERAL PULSES: Peripheral pulses 2+ throughout OTHER: Grade 3 ejection systolic murmur in aortic area GI: COMMON NORMALS: Normal to inspection, nondistended, normoactive bowel sounds present, Soft to palpation, non-tender, No hepatosplenomegaly present and no masses AUSCULTATION: Yes normoactive bowel sounds PALPATION: Yes Soft to palpation and Yes No hepatosplenomegaly present RECTAL EXAM: deferred Extremity: COMMON NORMALS: no clubbing, cyanosis or edema and no pedal edema Data : 01/24/21 05:38 01/24/21 05:38 A&P Assessment and plan (1) Pneumonia due to COVID-19 virus: Status: Acute (2) Acute on chronic diastolic (congestive) heart failure: Status: Acute (3) COPD exacerbation: Status: Acute (4) Alzheimer disease: Status: Acute (5) Diabetes: Status: Acute Additional A&P Information #Acute on chronic hypoxia 2/2 COVID PNA Chest x-ray findings consistent with pneumonia. CTA chest : Patchy ground-glass density throughout both lungs.Moderate left pleural effusion. No pulmonary emboli. D-dimer: ESR CRP Ferritin Procalcitonin ABG Remdesivir of 5 days course Dexamethasone 6 mg IV daily for 10-day Advair 1 Puff inhalation twice daily Budesonide twice daily Albuterol 2 puffs inhalation every 4 hours Currently requiring 5 L at home uses 2 L #Sepsis secondary to COVID PNA Ceftriaxone and azithromycin #Acute on chronic heart failure with preserved ejection fraction exacerbation Bumex 1 mg I.V daily Monitor I/O Daily weight k>4, mg >2 #Acute on chronic normocytic anemia Blood pressure stable, hemoglobin 8.6 down from 10 DNR/DNI Advance diet once she is more awake and alert DVT prophylaxis Lovenox Attestations Medical Necessity Statement*: Patient needs to be in the hospital for manag ement of Covid pneumonia Coding Level of Care Code Acute Micro Computer Specialist for [facility] Fwd Diagnoses Pneumonia due to COVID-19 virus U07.1; J12.82 Acute on chronic diastolic (congestive) heart failure I50.33 COPD exacerbation J44.1 Alzheimer disease G30.9; F02.80 Diabetes E11.9
[2021-01-25] MEDS: remdesivir 100 MG in sodium chloride 0.9% (100 ml) 100 ML IV (16:57)
[2021-01-25] MEDS: dextrose 5%-sod chloride 0.9% 1,000 ML 30 ML IV (17:51)
[2021-01-25] MEDS: dexamethasone 10 mg/mL INJ 6 MG IVP (20:42)
[2021-01-26] VITALS (8 sets, daily range): BP systolic 122–134; BP diastolic 69–76; PULSE 70–78; RESP 18; TEMP 36.6–36.9; O2SAT 83–94
[2021-01-26] MEDS: cefTRIAXone 1,000 MG in sodium chloride 0.9% (plus) 50 ML 100 MG IV (02:44)
[2021-01-26] MEDS: enoxaparin 40 mg/0.4 mL Syringe SUBCUT (02:45)
[2021-01-26] MEDS: albuterol 8 gm MDI 2 PUFF INHALATION ×2 (05:02→09:40)
--- NOTE | 2021-01-26 06:52 | PC.RESP ---
RT Shift Note Frequent safety and respiratory rounds continue. Orders completed as indicated. Patient monitored pre and post treatments throughout shift. Patient tolerated treatments appropriately. Condition did not change. Patient non responsive to teaching. Will continue to monitor patient progress.
[2021-01-26 07:11] LABS: Hematocrit 31.3 % (37.0-47.0); Hemoglobin 9.2 g/dL (11.5-15.3); Lymphocytes # 0.4 10^3/uL (0.8-4.8); Lymphocytes % 10.6 %; Mean Corpuscular HGB Conc 29.4 g/dL (30.0-36.0); Mean Corpuscular Volume 95.1 fL (81-99); Mean Platelet Volume 9.6 fL (7.4-10.4); Monocytes # 0.2 10^3/uL (0.2-0.9); Monocytes % 6.4 %; Neutrophils # 2.95 10^3/uL (1.8-7.7); Neutrophils % 82.2 %; Nucleated Red Blood Cells % 0 %; Platelet Count 484 10^3/cmm (130-400); Red Blood Count 3.29 10^6/uL (4.1-5.3); Red Cell Distribution Width 15.4 % (12.1-15.1); White Blood Count 3.6 10^3/uL (4.0-10.0)
[2021-01-26 07:50] LABS: Anion Gap 15.8 (5-19); Blood Urea Nitrogen 18 mg/dL (8-23); Calcium 8.5 mg/dL (8.5-10.5); Carbon Dioxide 30 mmol/L (22-29); Chloride 105 mmol/L (98-107); Creatinine Clr Calc Pharmacy 72.5037; Glomerular Filtration Rate 158.7 mL/min (90-130); Glucose 297 mg/dL (65-115); Magnesium 1.8 mg/dL (1.7-2.3); Osmolality Calculated 317 mOsm/kg (285-295); Potassium 3.8 mmol/L (3.5-5.1); Sodium 147 mmol/L (136-145)
[2021-01-26] MEDS: FUROsemide 10 mg/mL SDV 4mL 40 MG IVP (08:58)
[2021-01-26] MEDS: dextrose 5% 1,000 ML 50 ML IV (08:58)
--- NOTE | 2021-01-26 11:21 | PC.SOCIAL ---
IMM Update Pg. 2of IMM updated. Discussed with daughter over the phone. Initialed, dated, and timed, and placed in chart.
--- NOTE | 2021-01-26 16:26 | P.DS_ITS ---
Discharge Providers Date of Admission: 01/23/21 07:06 Date of Discharge: January 26, 2021 Attending Provider at Admission: Geovanny Fleming MD Attending Provider at Discharge: Geovanny Fleming MD Primary Care Provider: Megan Flower Diagnoses at Discharge Discharge Diagnosis (1) Pneumonia due to COVID-19 virus: Status: Acute (2) Acute on chronic diastolic (congestive) heart failure: Status: Acute (3) COPD exacerbation: Status: Acute (4) Alzheimer disease: Status: Acute (5) Diabetes: Status: Acute Reason for Visit Reason for Visit: abnormal labs/low o2 Hospital Course Hospital Course 70 year old female who has history of end-stage Alzheimer's dementia, COPD on 2 L home oxygen, heart failure with preserved ejection fraction , diabetes came in with chief complaint of worsening shortness of breath,whole family has been suffering with COVID-19 symptoms.She was admitted for management of Covid pneumonia. During the hospital stay she was kept on remdesivir, dexamethasone IV, diuretics, supplemental oxygen, other respiratory support measures, she was also empirically kept on ceftriaxone and azithromycin, blood cultures were negative.She responded well to the above medical management at the time of discharge, she was requiring 5 Ls of oxygen, her baseline oxygen requirement is 2 L.Patient was discharged home on 5 L supplemental oxygen, upon discharge she has been prescribed oral dexamethasone, Augmentin p.o. twice daily, as she is at high risk for aspiration pneumonia, as well as Advair inhaler.She will continue to follow-up with her primary care physician.Overall patient responded well to the above medical management and is being discharged in stable condition. Physical Exam HENMT: COMMON NORMALS: normocephalic and atraumatic HEAD & SCALP: norm ocephalic and atraumatic Resp: COMMON NORMALS: clear to auscultation bilaterally AUSCULTATION: clear to auscultation bilaterally Cardio: COMMON NORMALS: regular rate, regular rhythm, S1 normal heart sound present, S2 normal heart sound present, No gallops present (Cardio), No rub (Cardio) and Peripheral pulses 2+ throughout RATE: regular rate RHYTHM: regular rhythm HEART SOUNDS: S1 normal heart sound present and S2 normal heart sound present PERIPHERAL PULSES: Peripheral pulses 2+ throughout OTHER: Grade 3 ejection systolic murmur in aortic area GI: COMMON NORMALS: Normal to inspection, nondistended, normoactive bowel sounds present, Soft to palpation, non-tender, No hepatosplenomegaly present and no masses AUSCULTATION: Yes normoactive bowel sounds PALPATION: Yes Soft to palpation and Yes No hepatosplenomegaly present RECTAL EXAM: deferred Extremity: COMMON NORMALS: no clubbing, cyanosis or edema and no pedal edema Discharge Data Data Completed and Pending: Completed Studies During Hospitalization Category Date Time Status CT angio chest PE protcl [id number] Urge nt Cat Scan 01/23/21 01:14 Completed XR chest 1V bi ble [id number] Stat Exams 01/22/21 21:31 Completed Pending at discharge Category Date Time Status Blood Culture Sta t Lab 01/22/21 23:42 Results Labs from last 24 hours 01/26/21 01/26/21 06:51 06:51 WBC 3.6 L RBC 3.29 L Hgb 9.2 L Hct 31.3 L MCV 95.1 MCH 28.0 MCHC 29.4 L RDW 15.4 H Plt Count 484 H MPV 9.6 Neut % (Auto) 82.2 Lymph % (Auto) 10.6 [place] % (Auto) 6.4 Eos % (Auto) 0.0 Baso % (Auto) 0.0 Neut # (Auto) 2.95 Lymph # (Auto) 0.4 L [place] # (Auto) 0.2 Eos # (Auto) 0.0 Baso # (Auto) 0.0 Nucleated RBC % (a uto) 0 Nucleated RBCs # 0.0 Sodium 147 H Potassium 3.8 Chloride 105 Carbon Dioxide 30 H Anion Gap 15.8 BUN 18 Creatinine 0.4 L GFR Calculation 158.7 H Glucose 297 H Calculated Osmolal ity 317 H Calcium 8.5 Magnesium 1.8 Vitals: Last Vital Signs Temp 97.9 F 01/26/21 14:17 Pulse 72 01/26/21 14:17 Resp 18 01/26/21 14:17 BP 122/76 01/26/21 14:17 Pulse Ox 92 01/26/21 14:17 Discharge Plan Discharge Patient Disposition: Home Condition: Stable Prescriptions: New Augmentin 500-125 mg tablet 1 tab PO BID Qty: 14 RF: 0 dexamethasone 4 mg tablet 2 mg PO DAILY Qty: 7 RF: 0 Advair Diskus 250-50 mcg/dose blister with device 1 inh inhalation BID Qty: 60 RF: 0 Continued furosemide 20 mg tablet See Rx Instructions .ROUTE .COMPLEX RF: 0 pioglitazone [Actos] 45 mg tablet 45 mg PO QAM RF: 0 methenamine hippurate 1 gram tablet 1 g PO BID Qty: 60 RF: 12 hydrocodone-acetaminophen 5-325 mg tablet 1 tab PO Q8H PRN (Reason: Pain) RF: 0 memantine [Namenda] 10 mg tablet 10 mg PO BID RF: 0 galantamine 12 mg tablet 12 mg PO BID RF: 0 sertraline [Zoloft] 50 mg tablet 50 mg PO QAM Qty: 90 RF: 2 (DME) blood sugar diagnostic [Spectral Imageuch Ultra Blue Test Strip] Strip See Rx Instructions .ROUTE .MEDSUPPLY Qty: 180 RF: 0 Vitamin C 1,000 mg Tablet 1,000 mg PO BID RF: 0 ipratropium-albuterol 0.5 mg-3 mg(2.5 mg base)/3 mL solution for nebulization 3 ml INHALATION Q6H PRN (Reason: Shortness Of Breath) RF: 0 nystatin 100,000 unit/gram ointment 1 applic TOPICAL . DIRECTED RF: 0 simvastatin 10 mg tablet 10 mg PO BEDTIME RF: 0 glipizide 5 mg tablet 5 mg PO QAM RF: 0 potassium chloride 10 mEq capsule, extended release 10 meq PO BID RF: 0 insulin aspart U-100 [Novolog U-100 Insulin aspart] 100 unit/mL solution See Rx Instructions .ROUTE .COMPLEX RF: 0 Lantus Solostar U-100 Insulin 100 unit/mL (3 mL) insulin pen 10 unit SUBCUT BID RF: 0 Discontinued fluconazole 100 mg tablet 100 mg PO DAILY RF: 0 doxycycline monohydrate 100 mg tablet 100 mg PO BID RF: 0 Discharge Orders: Discharge Order (Routine); Ordered 01/26/21 Ordered By: Geovanny Fleming Other Ambulatory Orders: DME: Oxygen (Order) Location: None Selected Ordered By: Geovanny Fleming Referrals: Megan Flower [Primary Care Provider] - 1 week Discharge Diet: Soft Mechanical Discharge Activity: Increase activity as tolerated Patient Instructions: Amoxicillin/Clavulanate Potassium (By mouth), De xamethasone (By mouth), Using Oxygen at Home (GEN), Hypoxia (GEN), Opioid Safety Discharge Attestations Time Spent in Discharge Care*: less than 30 min Specific Discharge Activities: educating and/or supporting family/caregiver, discussing with hospice case manager/social workers/dc planners, documenting/other paperwork and evaluating patient/reviewing data Status at Discharge: Cognitive status at discharge: moderately impaired cognition (Baseline dementia ) , Behavioral status at discharge: dependent in ADL's , Quality Metrics Clinical Quality Measures During this hospital stay, did patient experience: None Coding Level of Care Code Acute Chg FW DC note Diagnoses Pneumonia due to COVID-19 virus U07.1; J12.82 Acute on chronic diastolic (congestive) heart failure I50.33 COPD exacerbation J44.1 Alzheimer disease G30.9; F02.80 Diabetes E11.9
== END 2021-01-26 14:00 | disposition home or self-care (01) | DRG 177 ==
LOC: ER 01-23 02:57 → ER IP 01-23 08:07 → MEDSURG 01-23 17:10
PROVIDERS: Internal Medicine; Physician Assistant; Admitting Provider Internal Medicine; Emergency Provider Emergency Medicine; PCP Registered Nurse; Visit Provider Internal Medicine
DX: U07.1 COVID-19 (principal); J12.82 Pneumonia due to coronavirus disease 2019; I50.33 Acute on chronic diastolic (congestive) heart failure; J96.21 Acute and chronic respiratory failure with hypoxia; J44.0 Chronic obstructive pulmonary disease with (acute) lower respiratory infection; J44.1 Chronic obstructive pulmonary disease with (acute) exacerbation; F33.9 Major depressive disorder, recurrent, unspecified; G30.9 Alzheimer's disease, unspecified; F02.80 Dementia in other diseases classified elsewhere, unspecified severity, without behavioral disturbance, psychotic disturbance, mood disturbance, and anxiety; Z99.81 Dependence on supplemental oxygen; Z98.1 Arthrodesis status; E11.9 Type 2 diabetes mellitus without complications; Z87.440 Personal history of urinary (tract) infections; I35.0 Nonrheumatic aortic (valve) stenosis; D64.9 Anemia, unspecified; Z66 Do not resuscitate; Z79.891 Long term (current) use of opiate analgesic; Z79.4 Long term (current) use of insulin
CPT/HCPCS: 36415; 36600; 71045; 71275; 80048; 80053; 82550; 82728; 82803; 83605; 83735; 83880; 84145; 84484; 85025; 85378; 85384; 85610; 85730; 86140; 87040; 87426; 87635; 87804; 93005; 94640; 94660; 96365; 96367; 96372; 96375; 97161; 99291; J0456; J0696; J1100; J1650; J1940; J3490; J3535; J7050; Q9967

== ENCOUNTER 2021-01-28 11:37 | Inpatient (IN) | payer MEDICARE, MEDICAID, SELFPAY ==
[2021-01-28] VITALS (7 sets, daily range): BP systolic 135–148; BP diastolic 56–70; PULSE 79–87; RESP 24–32; TEMP 37; O2SAT 85–99; BMI 28.3
--- NOTE | 2021-01-28 12:16 | XRR_ITS ---
PROCEDURE INFORMATION: Exam: XR Chest Exam date and time: 01/28/2021 12:16 PM Age: 70 years old Clinical indication: Dyspnea; Additional info: Covid/dyspnea TECHNIQUE: Imaging protocol: XR of the chest. Views: 1 view. COMPARISON: CR (CHEST, ) 01/22/2021 11:17 PM FINDINGS: Lungs: Bilateral interstitial pulmonary infiltrates are present which are predominantly in the perihilar regions. This may be due to an interstitial viral pneumonia. There is left basilar consolidation/atelectasis. Pleural spaces: There is a small left pleural effusion. Heart/Mediastinum: Unremarkable. No cardiomegaly. Bones/joints: Unremarkable. XR/XR chest 1V portable [id number] IMPRESSION: 1. Stable appearance of the chest. 2. Bilateral interstitial pulmonary infiltrates suspicious for viral pneumonia. New lines stable small left effusion.
--- NOTE | 2021-01-28 12:17 | ECG_ITS ---
[facility] Test Date: 2021-01-28 Pat Name: Florence Caban Department: Room: Gender: Female Core Cutter: : 1950 Requested By: Mack Arias Order Number: [id number] Rahel MD: Leno Birmingham M.D. Measurements Intervals [place] Rate: 82 P: 44 VA: 124 QRS: -16 QRSD: 93 T: -4 QT: 332 QTc: 390 Interpretive Statements SINUS RHYTHM INCOMPLETE RIGHT BUNDLE BRANCH BLOCK [90+ ms QRS DURATION, TERMINAL R IN V1/V2, 40+ ms S IN I/aVL/V4/V5/V6] NONSPECIFIC ST & T-WAVE ABNORMALITY Compared to ECG 01/22/2021 23:35:30 Incomplete right bundle-branch block now present T-wave abnormality now present Short VA interval no longer present ST (T wave) deviation no longer present Electronically Signed On 01-28-2021 17:27:50 CDT by Leno Birmingham M.D. [email or web address]
[2021-01-28 12:55] LABS: Basophils % 0.1 %; Eosinophils % 0.2 %; Hematocrit 29.7 % (37.0-47.0); Hemoglobin 8.8 g/dL (11.5-15.3); Lymphocytes # 1.2 10^3/uL (0.8-4.8); Lymphocytes % 12.7 %; Mean Corpuscular HGB Conc 29.6 g/dL (30.0-36.0); Mean Corpuscular Hemoglobin 27.8 pg (28.0-34.0); Mean Corpuscular Volume 93.7 fL (81-99); Mean Platelet Volume 9.9 fL (7.4-10.4); Monocytes # 1.2 10^3/uL (0.2-0.9); Neutrophils # 7.07 10^3/uL (1.8-7.7); Neutrophils % 73.7 %; Nucleated Red Blood Cells % 0.2 %; Platelet Count 477 10^3/cmm (130-400); Red Blood Count 3.17 10^6/uL (4.1-5.3); Red Cell Distribution Width 15.9 % (12.1-15.1); White Blood Count 9.6 10^3/uL (4.0-10.0)
[2021-01-28 12:58] LABS: ABG PCO2 49.1 mmHg (35-45); ABG PH Result 7.47 (7.35-7.45); Alveolar-Arterial Oxygen Gradi 32.6 mmHg (5-10); Arterial Blood Gas Hematocrit 25.4 % (37-47); Base Excess ABG 10.9 mmol/L (-2.0-2.0); Blood Gas Allen Test Pos; Blood Gas Operator Identificat CAK; Blood Gas Sample Site Radial, left; Blood Gas Sample Type Arterial; Carboxyhemoglobin 0.7 %THgb (0.4-20.1); HCO3 ABG 35.8 mmol/L (22-26); HGB O2 Sat 84.9 % (95-100); Ionized Calcium Level - ABG 1.2 mmol/L (1.1-1.4); Methemoglobin < 0.0 % (0.4-1.5); Oxygen Device HAG; Oxygen Saturation ABG 83.7; PO2 ABG 45.2 mmHg (80.0-100.0); Potassium Level - ABG 3.1 mmol/L (3.5-5.0); Total Hemoglobin 8.3 g/dL (12-16)
[2021-01-28 13:17] LABS: Lactic Sepsis W/Reflex 1.5 mmol/L (0.5-2.2)
[2021-01-28 13:21] LABS: Alanine Aminotransferase 12 U/L (0-33); Albumin Level 3.1 g/dL (3.5-5.2); Alkaline Phosphatase 72 IU/L (35-105); Anion Gap 12.3 (5-19); Aspartate Amino Transferase 11 U/L (0-32); Blood Urea Nitrogen 21 mg/dL (8-23); C Reactive Protein 14.1 mg/L (0.0-4.9); Carbon Dioxide 33 mmol/L (22-29); Chloride 106 mmol/L (98-107); Creatinine Clr Calc Pharmacy 69.1097; Globulin 2.5 g/dL (1.3-4.6); Glomerular Filtration Rate 99.4 mL/min (90-130); Glucose 258 mg/dL (65-115); Osmolality Calculated 318 mOsm/kg (285-295); Potassium 3.3 mmol/L (3.5-5.1); Sodium 148 mmol/L (136-145); Total Bilirubin 0.4 mg/dL (0.15-1.2); Total Protein 5.6 g/dL (6.6-8.7); Troponin(5th) Baseline 31 ng/L (0-10)
--- NOTE | 2021-01-28 13:31 | CTR_ITS ---
PROCEDURE INFORMATION: Exam: CTA Chest With Contrast Exam date and time: 01/28/2021 1:31 PM Age: 70 years old Clinical indication: Shortness of breath and other: Covid postive; Additional info: Hypoxia covid elevated d-dimer TECHNIQUE: Imaging protocol: Computed tomographic angiography of the chest with contrast. 3D rendering (Not supervised by radiologist): MIP and/or 3D reconstructed images were created by the technologist. Radiation optimization: All CT scans at this facility use at least one of these dose optimization techniques: automated exposure control; mA and/or kV adjustment per patient size (includes targeted exams where dose is matched to clinical indication); or iterative reconstruction. Contrast material: OMNI 350; Contrast volume: 95 ml; Contrast route: INTRAVENOUS (IV); COMPARISON: CT angio chest PE protcl [id number] 01/23/2021 1:25 AM RADIATION DOSE METRICS: Total DLP (mGy-cm): 617.12 FINDINGS: Pulmonary arteries: Normal. No pulmonary emboli. Aorta: Unremarkable. No aortic aneurysm. No aortic dissection. Lungs: Scattered irregular airspace opacities throughout both lungs with nonspecific pattern and distribution. Lower lobe volume loss changes are present worse on left than right. Areas of endobronchial occlusion in the lower lobes. Moderate severity background centrilobular emphysema. Pleural spaces: Trace left-sided pleural effusion. Negative for pneumothorax. Heart: Unremarkable. No cardiomegaly. No pericardial effusion. Lymph nodes: Unremarkable. No enlarged lymph nodes. Gallbladder and bile ducts: Cholecystectomy. Spleen: Calcified granulomas within the spleen. Bones/joints: Lower cervical spine ACDF. Demineralized bones. Age-indeterminate compression fractures at multiple levels of lower thoracic spine and upper lumbar spine. Alignment is unremarkable. Soft tissues: Unremarkable. CT/CT angio chest PE protcl [id number] IMPRESSION: 1. Negative for pulmonary embolism. 2. Scattered bilateral nonspecific airspace disease. Radiation Dose CTDIVOL = (mGy): DLP = 617.12 (mGy-cm)
--- NOTE | 2021-01-28 14:06 | ED_ITS ---
HPI - SOB/Dyspnea General: Chief Complaint: ER Hold Stated Complaint: RESPIRATORY DISTRESS/ PNEUMONIA Time Seen by Provider: 01/28/21 12:09 History of Present Illness: HPI Narrative: 62-year-old female with history of end-stage dementia. She was recently hospitalized from 01 23 through 01 26 withcongestive heart failure and pneumonia. She was found to have COVID-19 as well. Patient was discharged home on 5 L by nasal cannula supplemental oxygen and oral dexamethasone as well as Augmentin for aspiration pneumonia. She evidently has been living at home. With family support. Several family was at also had Covid. She is unable to verbalize anything family via phone states they wish her to be Do Not Recussitate. MD elicited complaint: shortness of breath and cough Pertinent past history: congestive heart failure and other (COVID-19) Onset (ago): day(s) Timing: constant Severity: severe Exacerbating factors: exertion, movement and coughing Relieving factors: oxygen and rest Known history of: congestive heart failure Associated symptoms: Reports chest congestion, cough and fever(s); Deny abdominal pain, chest pain, diaphoresis, dizziness, extremity pain, hemoptysis, lightheadedness, myalgias, nausea, orthopnea, palpitations, rash or sense of impending doom Review of Systems Const: Reports: fever(s); Denies: diaphoresis ENMT: Denies: throat pain, ear or mastoid pain, nasal discharge or nasal congestion Card: Denies: chest pain, palpitations, lightheadedness or orthopnea Resp: Reports: chest congestion; Denies: hemoptysis GI: Denies: abdominal pain or nausea : Denies: flank pain, difficulty voiding, dysuria, urinary frequency or urinary urgency Musc: Denies: extremity pain Skin/Breast: Denies: rash or pruritus Neuro: Denies: dizziness PFSH ED PFSH: Medical History Alzheimer disease CHF (congestive heart failure) COPD (chronic obstructive pulmonary disease) Diabetes Major depressive disorder, recurrent episode, moderate with anxious distress Pneumonia due to COVID-19 virus (~12/2020) Recurrent UTI SVT (supraventricular tachycardia) Urinary retention Surgical History Hx laparoscopic cholecystectomy Family History Brother Cancer Leukemia Sister Cancer female organs Social History Smoking and tobacco status: never smoked Alcohol intake: never Household members: children Marital status: / Current occupational status: disabled Physical Exam Const: ORIENTATION/CONSCIOUSNESS: Yes awake, Yes oriented to person, Yes oriented to place and Yes oriented to time HENMT: COMMON NORMALS: normocephalic and atraumatic HEAD & SCALP: normocephalic and atraumatic Neck/C-Spine: COMMON NORMALS: no JVD Resp: AUSCULTATION: crackles and wheezes Cardio: COMMON NORMALS: no JVD, regular rate, regular rhythm and No murmurs present (Cardio) RATE: regular rate RHYTHM: regular rhythm GI: COMMON NORMALS: Soft to palpation and No hepatosplenomegaly present AUSCULTATION: Yes normoactive bowel sounds PALPATION: Yes Soft to palpation, No Tenderness to palpation present (GI), No Guarding due to palpation present (GI) and Yes No hepatosplenomegaly present Extremity: COMMON NORMALS: normal to inspection, capillary refill normal, no clubbing, cyanosis or edema, no calf tenderness and no pedal edema Neuro: SENSORIUM/ORIENTATION: Yes oriented to person, Yes oriented to place and Yes oriented to time Skin: COMMON NORMALS: no rashes or lesions noted GENERAL SKIN EXAM: no rashes or lesions noted Course Vital Signs: Vital signs: Vital Signs Temperature 97.1 F L 01/29/21 13:45 Pulse Rate 88 01/29/21 13:45 Respiratory Rate 20 H 01/29/21 13:45 Blood Pressure 138/66 01/29/21 13:45 Pulse Oximetry 93 01/29/21 13:45 MDM - SOB/Dyspnea MDM Narrative: Medical decision making narrative: Patient has Alzheimer's dementia presented with profound oxygen need initially eval on evaluation she actually probably required intubation however she is a DNI/DNR we were able to contact the family they still do want us to treat her at this point. But they do not want to have her intubated. Discussed the hospitalist orders written. Lab Data: Labs: Lab Results 01/28/21 01/28/21 01/28/21 Range/Units 12:29 12:29 12:29 WBC 9.6 (4.0-10.0) 10^3/ uL RBC 3.17 L (4.1-5.3) 10^6/u L Hgb 8.8 L (11.5-15.3) g/dL Hct 29.7 L (37.0-47.0) % MCV 93.7 (81-99) fL MCH 27.8 L (28.0-34.0) pg MCHC 29.6 L (30.0-36.0) g/dL RDW 15.9 H (12.1-15.1) % Plt Count 477 H (130-400) 10^3/c mm MPV 9.9 (7.4-10.4) fL Neut % (Auto) 73.7 % Lymph % (Auto) 12.7 % [place] % (Auto) 12.0 % Eos % (Auto) 0.2 % Baso % (Auto) 0.1 % Neut # (Auto) 7.07 (1.8-7.7) 10^3/u L Lymph # (Auto) 1.2 (0.8-4.8) 10^3/u L [place] # (Auto) 1.2 H (0.2-0.9) 10^3/u L Eos # (Auto) 0.0 (0.0-0.8) 10^3/u L Baso # (Auto) 0.0 (0.0-0.1) 10^3/u L Nucleated RBC % (a uto) 0.2 % Nucleated RBCs # 0.0 /100WBC D-Dimer 8.60 H (0-0.59) ug/mIFE U Specimen Type Sample Site ABG pH (7.35-7.45) ABG pCO2 (35-45) mmHg ABG pO2 (80.0-100.0) mmH g ABG HCO3 (22-26) mmol/L ABG O2 Saturation ABG Base Excess (-2.0-2.0) mmol/ L Jose Test A-a O2 Gradient (5-10) mmHg Hematocrit (37-47) % Hgb O2 Saturation (95-100) % Carboxyhemoglobin (0.4-20.1) %THgb Methemoglobin (0.4-1.5) % Total Hemoglobin (12-16) g/dL Ionized Calcium (1.1-1.4) mmol/L O2 Delivery Device O2 Liters/Min % FiO2 % Bottle Booth Attendant ID Sodium 148 H (136-145) mmol/L Potassium 3.3 L (3.5-5.1) mmol/L Chloride 106 (98-107) mmol/L Carbon Dioxide 33 H (22-29) mmol/L Anion Gap 12.3 (5-19) BUN 21 (8-23) mg/dL Creatinine 0.6 (0.5-0.9) mg/dL GFR Calculation 99.4 (90-130) mL/min Glucose 258 H (65-115) mg/dL Calculated Osmolal ity 318 H (285-295) mOsm/k g Lactic Acid (0.5-2.2) mmol/L Calcium 8.0 L (8.5-10.5) mg/dL Total Bilirubin 0.4 (0.15-1.2) mg/dL AST 11 (0-32) U/L ALT 12 (0-33) U/L Alkaline Phosphata se 72 (35-105) IU/L Troponin T Baselin e (0-10) ng/L Troponin T 120 Min sharif (0-10) ng/L Delta Troponin T C-Reactive Protein 14.1 H (0.0-4.9) mg/L Total Protein 5.6 L (6.6-8.7) g/dL Albumin 3.1 L (3.5-5.2) g/dL Globulin 2.5 (1.3-4.6) g/dL 01/28/21 01/28/21 01/28/21 Range/Units 12:29 12:29 12:47 WBC (4.0-10.0) 10^3/ uL RBC (4.1-5.3) 10^6/u L Hgb (11.5-15.3) g/dL Hct (37.0-47.0) % MCV (81-99) fL MCH (28.0-34.0) pg MCHC (30.0-36.0) g/dL RDW (12.1-15.1) % Plt Count (130-400) 10^3/c mm MPV (7.4-10.4) fL Neut % (Auto) % Lymph % (Auto) % [place] % (Auto) % Eos % (Auto) % Baso % (Auto) % Neut # (Auto) (1.8-7.7) 10^3/u L Lymph # (Auto) (0.8-4.8) 10^3/u L [place] # (Auto) (0.2-0.9) 10^3/u L Eos # (Auto) (0.0-0.8) 10^3/u L Baso # (Auto) (0.0-0.1) 10^3/u L Nucleated RBC % (a uto) % Nucleated RBCs # /100WBC D-Dimer (0-0.59) ug/mIFE U Specimen Type Arterial Sample Site Radial, left ABG pH 7.47 H (7.35-7.45) ABG pCO2 49.1 H (35-45) mmHg ABG pO2 45.2 L (80.0-100.0) mmH g ABG HCO3 35.8 H (22-26) mmol/L ABG O2 Saturation 83.7 ABG Base Excess 10.9 H (-2.0-2.0) mmol/ L Jose Test Pos A-a O2 Gradient 32.6 H (5-10) mmHg Hematocrit 25.4 L (37-47) % Hgb O2 Saturation 84.9 L (95-100) % Carboxyhemoglobin 0.7 (0.4-20.1) %THgb Methemoglobin < 0.0 L (0.4-1.5) % Total Hemoglobin 8.3 L (12-16) g/dL Ionized Calcium 1.2 (1.1-1.4) mmol/L O2 Delivery Device Hag O2 Liters/Min 40.0 % FiO2 50.0 % Bottle Booth Attendant ID Cak Sodium 151.0 H (136-145) mmol/L Potassium 3.1 L (3.5-5.1) mmol/L Chloride (98-107) mmol/L Carbon Dioxide (22-29) mmol/L Anion Gap (5-19) BUN (8-23) mg/dL Creatinine (0.5-0.9) mg/dL GFR Calculation (90-130) mL/min Glucose 275.0 H (65-115) mg/dL Calculated Osmolal ity (285-295) mOsm/k g Lactic Acid 1.5 (0.5-2.2) mmol/L Calcium (8.5-10.5) mg/dL Total Bilirubin (0.15-1.2) mg/dL AST (0-32) U/L ALT (0-33) U/L Alkaline Phosphata se (35-105) IU/L Troponin T Baselin e 31 H (0-10) ng/L Troponin T 120 Min sharif (0-10) ng/L Delta Troponin T C-Reactive Protein (0.0-4.9) mg/L Total Protein (6.6-8.7) g/dL Albumin (3.5-5.2) g/dL Globulin (1.3-4.6) g/dL /03/12 Range/Units 17:10 WBC (4.0-10.0) 10^3/ uL RBC (4.1-5.3) 10^6/u L Hgb (11.5-15.3) g/dL Hct (37.0-47.0) % MCV (81-99) fL MCH (28.0-34.0) pg MCHC (30.0-36.0) g/dL RDW (12.1-15.1) % Plt Count (130-400) 10^3/c mm MPV (7.4-10.4) fL Neut % (Auto) % Lymph % (Auto) % [place] % (Auto) % Eos % (Auto) % Baso % (Auto) % Neut # (Auto) (1.8-7.7) 10^3/u L Lymph # (Auto) (0.8-4.8) 10^3/u L [place] # (Auto) (0.2-0.9) 10^3/u L Eos # (Auto) (0.0-0.8) 10^3/u L Baso # (Auto) (0.0-0.1) 10^3/u L Nucleated RBC % (a uto) % Nucleated RBCs # /100WBC D-Dimer (0-0.59) ug/mIFE U Specimen Type Sample Site ABG pH (7.35-7.45) ABG pCO2 (35-45) mmHg ABG pO2 (80.0-100.0) mmH g ABG HCO3 (22-26) mmol/L ABG O2 Saturation ABG Base Excess (-2.0-2.0) mmol/ L Jose Test A-a O2 Gradient (5-10) mmHg Hematocrit (37-47) % Hgb O2 Saturation (95-100) % Carboxyhemoglobin (0.4-20.1) %THgb Methemoglobin (0.4-1.5) % Total Hemoglobin (12-16) g/dL Ionized Calcium (1.1-1.4) mmol/L O2 Delivery Device O2 Liters/Min % FiO2 % Bottle Booth Attendant ID Sodium (136-145) mmol/L Potassium (3.5-5.1) mmol/L Chloride (98-107) mmol/L Carbon Dioxide (22-29) mmol/L Anion Gap (5-19) BUN (8-23) mg/dL Creatinine (0.5-0.9) mg/dL GFR Calculation (90-130) mL/min Glucose (65-115) mg/dL Calculated Osmolal ity (285-295) mOsm/k g Lactic Acid (0.5-2.2) mmol/L Calcium (8.5-10.5) mg/dL Total Bilirubin (0.15-1.2) mg/dL AST (0-32) U/L ALT (0-33) U/L Alkaline Phosphata se (35-105) IU/L Troponin T Baselin e (0-10) ng/L Troponin T 120 Min sharif 27.54 H (0-10) ng/L Delta Troponin T Not Reportable C-Reactive Protein (0.0-4.9) mg/L Total Protein (6.6-8.7) g/dL Albumin (3.5-5.2) g/dL Globulin (1.3-4.6) g/dL Discharge Plan Discharge Patient Disposition: Admitted As Inpatient Admit Provider: Nicolette Dobbs Clinical Impression: Pneumonia due to COVID-19 virus, COPD (chronic obstructive pulmonary disease), Alzheimer disease, Urinary retention, Diabetes Condition: Stable Discharge Orders: Discharge Order (Routine); Ordered 01/29/21 Ordered By: Roc Prather Discharge Diet: Usual diet Discharge Activity: Resume usual activity Coding Level of Care Code ED Lift Truck 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
--- NOTE | 2021-01-28 14:14 | PC.NURSE ---
NURSE SPOKE WITH ELANA, PT'S DAUGHTER (NEXT OF KIN), PT IS NONVERBAL AND MENTALLY INCAPABLE OF MAKING MEDICAL DECISIONS. PT'S DAUGHTER HAD INITIATED TRANSFER OF CARE FROM HOME HEALTH TO HOSPICE LAST WEEK AND REQUESTED TO HAVE PT'S CODE STATUS UPDATED TO DNR STATUS AT THE HOSPITAL.
--- NOTE | 2021-01-28 14:17 | ECG_ITS ---
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 Measurements Intervals [place] Rate: 93 P: 45 MS: 120 QRS: -31 QRSD: 94 T: 9 QT: 330 QTc: 412 Interpretive Statements SINUS RHYTHM POSSIBLE LEFT ATRIAL ENLARGEMENT [-0.1mV P WAVE IN V1/V2] MARKED LEFT AXIS DEVIATION [QRS AXIS < -30] INCOMPLETE RIGHT BUNDLE BRANCH BLOCK [90+ ms QRS DURATION, TERMINAL R IN V1/V2, 40+ ms S IN I/aVL/V4/V5/V6] NONSPECIFIC ST & T-WAVE ABNORMALITY Compared to ECG 01/28/2021 12:49:54 Left-axis deviation now present T-wave abnormality still present Electronically Signed On 01-28-2021 17:30:38 CDT by Leno Birmingham M.D. [email or web address]
[2021-01-28] MEDS: iohexol 350 mg/mL 100 mL Btl IV (15:53)
--- NOTE | 2021-01-28 17:52 | PM.HP ---
Providers/Chief Complaint Admitting Physician: Nicolette Dobbs Primary Care Provider: Megan Flower Chief Complaint: RESPIRATORY DISTRESS/ PNEUMONIA History of Present Illness Florence Caban is a 70 year old female who was hospitalized recently for COVID-19. She received a course of remdesivir and dexamethasone. She is chronically on oxygen for COPD at 2 L by nasal cannula. She was discharged on 5 L by nasal cannula. According to family she has required more oxygen to maintain oxygen saturations in the upper 80s since the day of discharge. She had been comfortable appearing with saturations at 86 to 88% but was up to requiring 7 L. She ate yesterday some scrambled eggs in the morning and some hash at dinner. She had three 20 ounce glasses of water. Urine output from her Donis catheter which is chronic was around 1400 cc yesterday. She did receive a double dose of Lasix. Today to maintain oxygen saturations in the lower 80s she was requiring up to 8 L of oxygen. The family had been in contact with primary care at [facility] in [place] who told them to have her come back to the emergency room given the increasing oxygen requirement. While family does not want Mrs. Caban to be intubated or resuscitated following ACLS protocol, they do want to continue oxygen therapy, BiPAP if necessary and antibiotics, other care as appropriate for Covid. I talked with the patient's daughter Tessie for while clarifying goals of care. She is aware of the poor prognosis under the circumstances. Currently Mrs. Caban is requiring 40 L flow, 100% FiO2 in the emergency room. CTA of the chest did not show any evidence of PE. Some of her labs are improved from last hospital stay, somewhat lower. There is no report of any bleeding although she does have a bruise on her right breast. Not clear where that came from. Review of Systems General: Reports: ROS unobtainable due to medical condition and ROS unobtainable due to mental status Medications/Allergies Home Medications Medication Instructions Recorded Confirmed Last Taken Type galantamine 12 mg tablet 12 mg PO BID 08/31/19 01/28/21 01/27/21 History memantine 10 mg tablet 10 mg PO BID 08/31/19 01/28/21 01/27/21 History blood sugar diagnostic #180 each 10/12/19 01/28/21 Unknown Rx Lantus Solostar U-100 Insulin 10 unit SUBCUT BID 05/09/20 01/28/21 01/27/21 History glipizide 5 mg PO DAILY 05/09/20 01/28/21 01/27/21 History insulin aspart U-100 [Novolog See Rx Instructions .ROUTE .COMPLEX 05/09/20 01/28/21 01/27/21 History U-100 Insulin aspart] potassium chloride 10 meq PO BID 05/09/20 01/28/21 01/27/21 History hydrocodone 5 mg-acetaminophen 325 1 tab PO Q8H PRN 08/20/20 01/28/21 01/27/21 History mg tablet furosemide 20 mg tablet See Rx Instructions .ROUTE .COMPLEX 09/12/20 01/28/21 01/27/21 History methenamine hippurate 1 gram tablet 1 g PO BID #60 tab 09/12/20 01/28/21 01/27/21 Rx pioglitazone 45 mg tablet 45 mg PO DAILY 09/12/20 01/28/21 01/27/21 History ascorbic acid (vitamin C) [Vitamin 1,000 mg PO BID 01/23/21 01/28/21 01/27/21 History C] ipratropium-albuterol 3 ml INHALATION Q6H PRN 01/23/21 01/28/21 01/28/21 History nystatin See Rx Instructions .ROUTE .COMPLEX 01/23/21 01/28/21 01/27/21 History simvastatin 10 mg PO BEDTIME 01/23/21 01/28/21 01/27/21 History amoxicillin-pot clavulanate 1 tab PO BID #14 tab 01/26/21 01/28/21 01/27/21 Rx [Augmentin] dexamethasone 2 mg PO DAILY #7 tab 01/26/21 01/28/21 01/27/21 Rx fluticasone propion-salmeterol 1 inh INHALATION BID #60 ea 01/26/21 01/28/21 01/28/21 Rx [Advair Diskus] Zoloft 50 mg PO DAILY 01/28/21 01/28/21 01/27/21 History Allergies Allergy/AdvReac Type Severity Reaction Status Date / Time venlafaxine [From Effexor] Allergy Intermediate ALGY-Hives Verified 01/23/21 09:38 PFSH Acute PFSH: Medical History (Updated 01/28/21 @ 18:29 by Nicolette Dobbs MD) Alzheimer disease CHF (congestive heart failure) COPD (chronic obstructive pulmonary disease) Diabetes Major depressive disorder, recurrent episode, moderate with anxious distress Pneumonia due to COVID-19 virus (~12/2020) Recurrent UTI SVT (supraventricular tachycardia) Urinary retention Surgical History Hx laparoscopic cholecystectomy Family History Brother Cancer Leukemia Sister Cancer female organs Social History (Updated 01/28/21 @ 18:03 by Nicolette Dobbs MD) Smoking and tobacco status: never smoked Alcohol intake: never Household members: children Marital status: / Current occupational status: disabled Supplemental PFSH Information: did not receive covid vaccine at advice of primary care provider Vitals/I&O/Wt Last Vital Signs Temp 98.6 F 01/28/21 12:12 Pulse 82 01/28/21 15:40 Resp 28 H 01/28/21 15:40 BP 147/70 01/28/21 15:22 Pulse Ox 99 01/28/21 15:40 Weight last 48 hrs Weight 77.111 kg Physical Exam Narrative: EXAM NARRATIVE: Constitutional: Patient is awake, does not make eye contact but moves face around some. She is currently wearing heated high flow cannula and tolerating it. HEENT: normocephalic, pupils are reactive, conjunctive pale, dry mucous membranes Neck: supple Respiratory: No wheezes wheezes, bilateral crackles, tachypnea, some intercostal retractions with movement Cardiovascular: regular, distant heart sounds, no acrocyanosis Abdomen: soft, non tender, positive bowel sounds : Donis catheter is noted, normal external genitalia Extremities: Trace ankle edema bilaterally, no calf tenderness apparent Skin: dry, approximately 4 cm diameter bruise to the right upper outer breast, no rashes noted, I have not examined patient's backside due to hypoxemia with movement Neuro: face symmetric, not following commands currently but does respond to touch, keeps eyes open and looked to see who was at the door when her family came by, DTRs are equal at both forearms, was shaking her legs, right more than left upon my arrival in the room but stopped shortly thereafter, seemed intentional, possibly anxiety related rather than involuntary as it calmed quite quickly with touch Psych: Appears to be observing some of what is going on around her, currently cooperative though has required repositioning of cannula, seemed anxious upon my initial arrival Data : 01/28/21 12:29 01/28/21 12:29 Other Labs: Laboratory Results WBC 9.6 10^3/uL (4.0-10.0) 01/28/21 12: RBC 3.17 10^6/uL (4.1-5.3) L 01/28/21 12:29 Hgb 8.8 g/dL (11.5-15.3) L 01/28/21 12: Hct 29.7 % (37.0-47.0) L 01/28/21 12: MCV 93.7 fL (81-99) 01/28/21 12: MCH 27.8 pg (28.0-34.0) L 01/28/21 12: MCHC 29.6 g/dL (30.0-36.0) L 01/28/21 12: RDW 15.9 % (12.1-15.1) H 01/28/21 12: Plt Count 477 10^3/cmm (130-400) H 01/28/21 12: MPV 9.9 fL (7.4-10.4) 01/28/21 12: Neut % (Auto) 73.7 % 01/28/21 12: Lymph % (Auto) 12.7 % 01/28/21 12: Hubbard % (Auto) 12.0 % 01/28/21 12:29 Eos % (Auto) 0.2 % 01/28/21 12:29 Baso % (Auto) 0.1 % 01/28/21 12:29 Neut # (Auto) 7.07 10^3/uL (1.8-7.7) 01/28/21 12: Lymph # (Auto) 1.2 10^3/uL (0.8-4.8) 01/28/21 12:29 Hubbard # (Auto) 1.2 10^3/uL (0.2-0.9) H 01/28/21 12:29 Eos # (Auto) 0.0 10^3/uL (0.0-0.8) 01/28/21 12:29 Baso # (Auto) 0.0 10^3/uL (0.0-0.1) 01/28/21 12:29 Nucleated RBC % (auto) 0.2 % 01/28/21 12: Nucleated RBCs # 0.0 /100WBC 01/28/21 12:29 D-Dimer 8.60 ug/mIFEU (0-0.59) H 01/28/21 12:29 Specimen Type Arterial 01/28/21 12:47 Sample Site Radial, left 01/28/21 12:47 ABG pH 7.47 (7.35-7.45) H 01/28/21 12:47 ABG pCO2 49.1 mmHg (35-45) H 01/28/21 12:47 ABG pO2 45.2 mmHg (80.0-100.0) L 01/28/21 12:47 ABG HCO3 35.8 mmol/L (22-26) H 01/28/21 12:47 ABG O2 Saturation 83.7 01/28/21 12:47 ABG Base Excess 10.9 mmol/L (-2.0-2.0) H 01/28/21 12:47 Jose Test Pos 01/28/21 12:47 A-a O2 Gradient 32.6 mmHg (5-10) H 01/28/21 12:47 Hematocrit 25.4 % (37-47) L 01/28/21 12:47 Hgb O2 Saturation 84.9 % (95-100) L 01/28/21 12:47 Carboxyhemoglobin 0.7 %THgb (0.4-20.1) 01/28/21 12:47 Methemoglobin < 0.0 % (0.4-1.5) L 01/28/21 12:47 Total Hemoglobin 8.3 g/dL (12-16) L 01/28/21 12:47 Sodium 151.0 mmol/L (131-143) H 01/28/21 12:47 Potassium 3.1 mmol/L (3.5-5.0) L 01/28/21 12:47 Glucose 275.0 mg/dL (70-115) H 01/28/21 12:47 Ionized Calcium 1.2 mmol/L (1.1-1.4) 01/28/21 12:47 O2 Delivery Device Hag 01/28/21 12:47 O2 Liters/Min 40.0 % 01/28/21 12:47 FiO2 50.0 % 01/28/21 12:47 Biophysics Teacher ID Cak 01/28/21 12:47 Sodium 148 mmol/L (136-145) H 01/28/21 12:29 Potassium 3.3 mmol/L (3.5-5.1) L 01/28/21 12:29 Chloride 106 mmol/L (98-107) 01/28/21 12:29 Carbon Dioxide 33 mmol/L (22-29) H 01/28/21 12:29 Anion Gap 12.3 (5-19) 01/28/21 12:29 BUN 21 mg/dL (8-23) 01/28/21 12:29 Creatinine 0.6 mg/dL (0.5-0.9) 01/28/21 12:29 GFR Calculation 99.4 mL/min (90-130) 01/28/21 12:29 Glucose 258 mg/dL (65-115) H 01/28/21 12:29 Calculated Osmolality 318 mOsm/kg (285-295) H 01/28/21 12:29 Lactic Acid 1.5 mmol/L (0.5-2.2) 01/28/21 12:29 Calcium 8.0 mg/dL (8.5-10.5) L 01/28/21 12:29 Total Bilirubin 0.4 mg/dL (0.15-1.2) 01/28/21 12:29 AST 11 U/L (0-32) 01/28/21 12:29 ALT 12 U/L (0-33) 01/28/21 12:29 Alkaline Phosphatase 72 IU/L (35-105) 01/28/21 12:29 Troponin T Baseline 31 ng/L (0-10) H 01/28/21 12:29 C-Reactive Protein 14.1 mg/L (0.0-4.9) H 01/28/21 12:29 Total Protein 5.6 g/dL (6.6-8.7) L 01/28/21 12:29 Albumin 3.1 g/dL (3.5-5.2) L 01/28/21 12:29 Globulin 2.5 g/dL (1.3-4.6) 01/28/21 12:29 Impressions Chest X-Ray 01/28/21 12:16 IMPRESSION: 1. Stable appearance of the chest. 2. Bilateral interstitial pulmonary infiltrates suspicious for viral pneumonia. New lines stable small left effusion. Chest CTA 01/28/21 13:31 IMPRESSION: 1. Negative for pulmonary embolism. 2. Scattered bilateral nonspecific airspace disease. Radiation Dose CTDIVOL = (mGy): DLP = 617.12 (mGy-cm) A&P Assessment and plan (1) Pneumonia due to COVID-19 virus: Hospitalized 01/23-01/26 Chronically on 2 L of oxygen by nasal cannula for COPD Discharged 01/26 on 5 L by nasal cannula, currently requiring 40 L 100% FiO2 via H HF Transition to BiPAP is acceptable per family Not to be intubated or to be resuscitated Status post 5 days of remdesivir Has been dexamethasone IV or oral since 01/23, will continue Was treated with Rocephin and azithromycin inpatient and transitioned to Augmentin at discharge Covering empirically with Primaxin, history of recurrent E. coli urinary tract infection Will attempt to lie on her side or stomach if she tolerates Albuterol, Spiriva, Advair CTA of the chest did not show any evidence of PE Effusions noted on imaging were described as stable IV Lasix x1 dose, monitor response and redose as indicated, taking orally at home CRP 14 D-dimer 8.6 Status: Acute (2) CHF (congestive heart failure): Last echocardiogram with an ejection fraction of 55% in May 2019 Status: Chronic Qualifiers: Heart failure type: unspecified Heart failure chronicity: acute on chronic Qualified Code(s): I50.9 - Heart failure, unspecified (3) Anemia: I suspect degree of dilutional effect, no evidence of active bleeding beyond bruising to breast Hemoglobin 8.8 Status: Acute Qualifiers: Anemia type: unspecified type Qualified Code(s): D64.9 - Anemia, unspecified (4) COPD (chronic obstructive pulmonary disease): Chronically on 2 L of oxygen by nasal cannula Status: Chronic Qualifiers: COPD type: unspecified COPD Qualified Code(s): J44.9 - Chronic obstructive pulmonary disease, unspecified (5) Diabetes: Looks to chronically be on insulin and oral hypoglycemics Status: Chronic Qualifiers: Diabetes mellitus type: type 2 Diabetes mellitus terminal manager insulin use: with terminal manager use Diabetes mellitus complication status: with hyperglycemia Qualified Code(s): E11.65 - Type 2 diabetes mellitus with hyperglycemia; Z79.4 - adjunct faculty for medical terminology (current) use of insulin (6) Recurrent UTI: Follows with Dr. Pepper, chronic Donis, history of E. coli urinary tract infections Status: Chronic (7) Alzheimer disease: Chronically on galantamine and Namenda Status: Chronic Additional A&P Information Inpatient admission Potassium replacement Check magnesium Recheck H&H in the morning Long and short acting insulin Urinalysis has been ordered Serial cardiac enzymes N.p.o. except for sips and chips currently secondary to extent of oxygenation required Have ordered home galantamine and namenda as well as zoloft if she can take it Most home medications are held due to current clinical condition Lovenox for DVT prophylaxis Has donis catheter from home, not to be removed Family has in process of considering hospice, and has spoken to [facility] as well as [address] [place] [address]. [facility] will be talking to the patient's daughter tomorrow 01/29. We will have director of social work assist as well. I have given permission for family to come and see her as her prognosis is extremely poor based on current oxygen requirements. Family that have not been living with her and taking care of her can visit for 5 minutes in full PPE although I did recommend that they come as a group of no more than 4 people at a time into the room. Patient's daughter Tessie and granddaughter can stay longer in full PPE as they have been living with her and caring for Mrs. Caban since her discharge, already have exposure. Allow natural Attestations Medical Necessity Statement*: Anticipate stay greater than 2 midnights in patient with covid, requiring oxygen and other care as noted above. At high risk of rapid clinical decline for reasons noted above. Will see see if she has any improvement with care as ordered but prognosis is poor and family is aware of this. Coding Level of Care Code Acute Psychology Fellow for Reginald Hernandez Diagnoses Pneumonia due to COVID-19 virus U07.1; J12.82 CHF (congestive heart failure) I50.9 Heart failure type: unspecified Heart failure chronicity: acute on chronic Anemia D64.9 Anemia type: unspecified type COPD (chronic obstructive pulmonary disease) J44.9 COPD type: unspecified COPD Diabetes E11.65; Z79.4 Diabetes mellitus type: type 2 Diabetes mellitus assisted insulin use: with assisted use Diabetes mellitus complication status: with hyperglycemia Recurrent UTI N39.0 Alzheimer disease G30.9; F02.80
[2021-01-28 18:01] LABS: Troponin 5 2HR 27.54 ng/L (0-10)
--- NOTE | 2021-01-28 18:17 | ECG_ITS ---
[facility] ED Test Date: 2021-01-28 Pat Name: Florence Caban Department: Room: EDIP Gender: Female Director Of Program Management: : 1950 Requested By: Mack Arias Order Number: [id number] Rahel MD: Alka Reeder M.D. Measurements Intervals [place] Rate: 86 P: 43 AK: 114 QRS: -29 QRSD: 93 T: 40 QT: 339 QTc: 406 Interpretive Statements SINUS RHYTHM WITH SHORT AK INTERVAL POSSIBLE LEFT ATRIAL ENLARGEMENT [-0.1mV P WAVE IN V1/V2] BORDERLINE LEFT AXIS DEVIATION [QRS AXIS < -20] POSSIBLE RIGHT VENTRICULAR CONDUCTION DELAY [RSR (QR) IN V1/V2] NONSPECIFIC T-WAVE ABNORMALITY Compared to ECG 01/28/2021 16:53:24 Short AK interval now present Incomplete right bundle-branch block no longer present T-wave abnormality still present Electronically Signed On 01-31-2021 10:05:46 CDT by Alka Reeder M.D. [email or web address]
[2021-01-28] MEDS: enoxaparin 40 mg/0.4 mL Syringe SUBCUT (20:02)
[2021-01-28] MEDS: pantoprazole 40 mg SDV IVP (20:03)
[2021-01-28] MEDS: FUROsemide 10 mg/mL SDV 4mL 40 MG IVP (21:08)
[2021-01-28 22:01] LABS: Glucose Point of Care 317 mg/dL (70-110)
[2021-01-28 22:04] LABS: Troponin 5 6HR 27.54 ng/L (0-10)
[2021-01-28 22:05] LABS: Troponin 5 6HR Delta 0 ng/L (0-12)
--- NOTE | 2021-01-28 23:17 | PC.NURSE ---
report called to Mildred.
[2021-01-28 23:52] LABS: Bilirubin Urine Neg (Negative); Blood Urine 3+ (Negative); Glucose Urine UA Norm (Normal); Ketones Urine Negative (Negative); Nitrate Urine Negative (Negative); Protein Urine Neg (Negative); Specific Gravity, Urine 1.005 (1.005-1.030); Urine Appearance Turbid (CLEAR); Urine Color Colorless (Yellow); Urobilinogen Urine Norm (Negative); pH Urine 5 (5-7)
[2021-01-28 23:53] LABS: Add Urine Culture? Yes; Add Urine Microscopic? YES; Bacteria Urine TRACE /hpf; Leukocyte Esterase Urine 2+ (Negative); RBC Urine 0-4 /hpf (0-2); Squamous Epithelial Cell Urine 0-4 /hpf (0-5); WBC Urine 25-40 /hpf (0-5)
[2021-01-29] VITALS (8 sets, daily range): BP systolic 121–138; BP diastolic 66–69; PULSE 77–90; RESP 20–28; TEMP 36.1–37; O2SAT 85–95; BMI 29.1
[2021-01-29 05:22] LABS: Basophils % 0.1 %; Eosinophils % 0.2 %; Hematocrit 34.5 % (37.0-47.0); Hemoglobin 10.3 g/dL (11.5-15.3); Lymphocytes # 1.2 10^3/uL (0.8-4.8); Lymphocytes % 9.5 %; Mean Corpuscular HGB Conc 29.9 g/dL (30.0-36.0); Mean Corpuscular Hemoglobin 28.4 pg (28.0-34.0); Mean Platelet Volume 9.8 fL (7.4-10.4); Monocytes # 1.8 10^3/uL (0.2-0.9); Monocytes % 13.7 %; Neutrophils # 9.73 10^3/uL (1.8-7.7); Neutrophils % 75.4 %; Nucleated Red Blood Cells % 0 %; Platelet Count 487 10^3/cmm (130-400); Red Blood Count 3.63 10^6/uL (4.1-5.3); Red Cell Distribution Width 16.1 % (12.1-15.1); White Blood Count 12.9 10^3/uL (4.0-10.0)
[2021-01-29 05:36] LABS: Anion Gap 12.5 (5-19); Blood Urea Nitrogen 16 mg/dL (8-23); Carbon Dioxide 36 mmol/L (22-29); Chloride 105 mmol/L (98-107); Potassium 3.5 mmol/L (3.5-5.1); Sodium 150 mmol/L (136-145)
[2021-01-29 05:37] LABS: Alanine Aminotransferase 11 U/L (0-33); Alkaline Phosphatase 70 IU/L (35-105); Aspartate Amino Transferase 13 U/L (0-32); C Reactive Protein 13.1 mg/L (0.0-4.9); Calcium 8.7 mg/dL (8.5-10.5); Globulin 3.7 g/dL (1.3-4.6); Glomerular Filtration Rate 122.7 mL/min (90-130); Glucose 207 mg/dL (65-115); Magnesium 1.8 mg/dL (1.7-2.3); Osmolality Calculated 317 mOsm/kg (285-295); Phosphorus 2.2 mg/dL (2.5-4.5); Total Bilirubin 0.4 mg/dL (0.15-1.2); Total Protein 6.7 g/dL (6.6-8.7)
--- NOTE | 2021-01-29 06:07 | PC.NURSE ---
Shift Note Frequent safety and comfort rounds continue. Orders and/or nursing care completed as indicated. Patient monitored for response to intervention and treatment(s). Education provided includes keeping oxygen on and using call light if needed. Patient unable to comprehend and needs reinforced. Patient's oxygen saturations during this shift remained in the 90s. Patient has a couple pressure injuries to her buttock, optifoams were placed. Patient is currently resting in bed. Will continue to monitor.
[2021-01-29] MEDS: dexamethasone 4 mg/mL INJ 6 MG IVP (09:49)
[2021-01-29 11:55] LABS: Glucose Point of Care 266 mg/dL (70-110)
--- NOTE | 2021-01-29 12:04 | PM.DCS ---
Discharge Providers Date of Admission: 01/28/21 18:05 Date of Discharge: January 29, 2021 Attending Provider at Admission: Nicolette Dobbs MD Attending Provider at Discharge: Roc Prather MD Primary Care Provider: Megan Flower Diagnoses at Discharge Discharge Diagnosis (1) Pneumonia due to COVID-19 virus: Status: Acute (2) CHF (congestive heart failure): Status: Chronic Qualifiers: Heart failure chronicity: acute on chronic Heart failure type: unspecified Qualified Code(s): I50.9 - Heart failure, unspecified (3) Anemia: Status: Acute Qualifiers: Anemia type: unspecified type Qualified Code(s): D64.9 - Anemia, unspecified (4) COPD (chronic obstructive pulmonary disease): Status: Chronic Qualifiers: COPD type: unspecified COPD Qualified Code(s): J44.9 - Chronic obstructive pulmonary disease, unspecified (5) Diabetes: Status: Chronic Qualifiers: Diabetes mellitus type: type 2 Diabetes mellitus employee training specialist insulin use: with half-way use Diabetes mellitus complication status: with hyperglycemia Qualified Code(s): E11.65 - Type 2 diabetes mellitus with hyperglycemia; Z79.4 - briquette maker (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 She has underlying COPD, and is on chronic oxygen as well. She was placed in the hospital on high flow nasal cannula. Dexamethasone was initiated. CTA of chest was performed which demonstrated no pulmonary embolism. Primaxin was initiated secondary to history of E. coli urinary tract infection, empirically. After extensive discussion with the family, with consideration of the patient wishes and underlying quality of life, family chose to make the patient hospice. They would like her discharged home on comfort measures. This was arranged. She will be discharged on 100% nonrebreather for her ride home, where hospice care will be initiated. Physical Exam Narrative: EXAM NARRATIVE: General exam is a dyspneic white female, who will open her eyes when I approach her but not discuss anything verbal. Neck is supple no lymphadenopathy or thyromegaly Cardiovascular regular rate and rhythm without murmur Lungs coarse breath sounds bilaterally Abdomen is soft with positive bowel sounds Extremities no cyanosis clubbing or edema Urinary Catheter Management^: Alexis: Cath Placed During This Visit: no Reason for Continuing Indwelling Catheter: Hospice/Comfort/Palliative Care Discharge Data Data Completed and Pending: Completed Studies During Hospitalization Category Date Time Status CT angio chest PE protcl [id number] Stat Cat Scan 01/28/21 13:31 Completed XR chest 1V ib ble [id number] Stat Exams 01/28/21 12:16 Completed Pending at discharge Category Date Time Status Urine Culture Sta t Lab 01/28/21 23:45 Received Labs from last 24 hours 01/29/21 01/29/21 01/29/21 11:49 05:10 05:10 WBC 12.9 H RBC 3.63 L Hgb 10.3 L Hct 34.5 L MCV 95.0 MCH 28.4 MCHC 29.9 L RDW 16.1 H Plt Count 487 H MPV 9.8 Neut % (Auto) 75.4 Lymph % (Auto) 9.5 Maverick % (Auto) 13.7 Eos % (Auto) 0.2 Baso % (Auto) 0.1 Neut # (Auto) 9.73 H Lymph # (Auto) 1.2 Maverick # (Auto) 1.8 H Eos # (Auto) 0.0 Baso # (Auto) 0.0 Nucleated RBC % (a uto) 0 Nucleated RBCs # 0.0 D-Dimer Specimen Type Sample Site ABG pH ABG pCO2 ABG pO2 ABG HCO3 ABG O2 Saturation ABG Base Excess Jose Test A-a O2 Gradient Hematocrit Hgb O2 Saturation Carboxyhemoglobin Methemoglobin Total Hemoglobin Ionized Calcium O2 Delivery Device O2 Liters/Min FiO2 Surgical Aides Teacher ID Sodium 150 H Potassium 3.5 Chloride 105 Carbon Dioxide 36 H Anion Gap 12.5 BUN 16 Creatinine 0.5 GFR Calculation 122.7 Glucose 207 H POC Glucose 266 H Calculated Osmolal ity 317 H Lactic Acid Calcium 8.7 Phosphorus 2.2 L Magnesium 1.8 Total Bilirubin 0.4 AST 13 ALT 11 Alkaline Phosphata se 70 Troponin T Baselin e Troponin T 120 Min [place] Delta Troponin T Troponin T Hi Sens 6Hr Troponin T Hi Sens 6Hr Delta C-Reactive Protein 13.1 H Total Protein 6.7 Albumin 3.0 L Globulin 3.7 Urine Color Urine Appearance Urine pH Ur Specific Gravit y Urine Protein Urine Glucose (UA) Urine Ketones Urine Blood Urine Nitrate Urine Bilirubin Urine Urobilinogen Ur Leukocyte Mindy ase Urine RBC Urine WBC Ur Squamous Epith Cells Amorphous Sediment Urine Bacteria Urine Yeast 01/28/21 01/28/21 01/28/21 23:45 21:56 21:28 WBC RBC Hgb Hct MCV MCH MCHC RDW Plt Count MPV Neut % (Auto) Lymph % (Auto) Maverick % (Auto) Eos % (Auto) Baso % (Auto) Neut # (Auto) Lymph # (Auto) [place]ick # (Auto) Eos # (Auto) Baso # (Auto) Nucleated RBC % (a uto) Nucleated RBCs # D-Dimer Specimen Type Sample Site ABG pH ABG pCO2 ABG pO2 ABG HCO3 ABG O2 Saturation ABG Base Excess Jose Test A-a O2 Gradient Hematocrit Hgb O2 Saturation Carboxyhemoglobin Methemoglobin Total Hemoglobin Ionized Calcium O2 Delivery Device O2 Liters/Min FiO2 Surgical Aides Teacher ID Sodium Potassium Chloride Carbon Dioxide Anion Gap BUN Creatinine GFR Calculation Glucose POC Glucose 317 H Calculated Osmolal ity Lactic Acid Calcium Phosphorus Magnesium Total Bilirubin AST ALT Alkaline Phosphata se Troponin T Baselin e Troponin T 120 Min [place] Delta Troponin T Troponin T Hi Sens 6Hr 27.54 H Troponin T Hi Sens 6Hr Delta 0 C-Reactive Protein Total Protein Albumin Globulin Urine Color Colorless Urine Appearance Turbid Urine pH 5 Ur Specific Gravit y 1.005 Urine Protein Neg Urine Glucose (UA) Norm Urine Ketones Negative Urine Blood 3+ H Urine Nitrate Negative Urine Bilirubin Neg Urine Urobilinogen Norm Ur Leukocyte Mindy ase 2+ H Urine RBC 0-4 H Urine WBC 25-40 H Ur Squamous Epith Cells 0-4 H Amorphous Sediment Not Reportable Urine Bacteria Trace Urine Yeast 3+ H 01/28/21 01/28/21 01/28/21 17:10 12:47 12:29 WBC RBC Hgb Hct MCV MCH MCHC RDW Plt Count MPV Neut % (Auto) Lymph % (Auto) [place]verick % (Auto) Eos % (Auto) Baso % (Auto) Neut # (Auto) Lymph # (Auto) [place] # (Auto) Eos # (Auto) Baso # (Auto) Nucleated RBC % (a uto) Nucleated RBCs # D-Dimer Specimen Type Arterial Sample Site Radial, left ABG pH 7.47 H ABG pCO2 49.1 H ABG pO2 45.2 L ABG HCO3 35.8 H ABG O2 Saturation 83.7 ABG Base Excess 10.9 H Jose Test Pos A-a O2 Gradient 32.6 H Hematocrit 25.4 L Hgb O2 Saturation 84.9 L Carboxyhemoglobin 0.7 Methemoglobin < 0.0 L Total Hemoglobin 8.3 L Ionized Calcium 1.2 O2 Delivery Device Hag O2 Liters/Min 40.0 FiO2 50.0 Surgical Aides Teacher ID Cak Sodium 151.0 H Potassium 3.1 L Chloride Carbon Dioxide Anion Gap BUN Creatinine GFR Calculation Glucose 275.0 H POC Glucose Calculated Osmolal ity Lactic Acid Calcium Phosphorus Magnesium Total Bilirubin AST ALT Alkaline Phosphata se Troponin T Baselin e 31 H Troponin T 120 Min [place] 27.54 H Delta Troponin T Not Reportable Troponin T Hi Sens 6Hr Troponin T Hi Sens 6Hr Delta C-Reactive Protein Total Protein Albumin Globulin Urine Color Urine Appearance Urine pH Ur Specific Gravit y Urine Protein Urine Glucose (UA) Urine Ketones Urine Blood Urine Nitrate Urine Bilirubin Urine Urobilinogen Ur Leukocyte Mindy ase Urine RBC Urine WBC Ur Squamous Epith Cells Amorphous Sediment Urine Bacteria Urine Yeast 01/28/21 01/28/21 01/28/21 12:29 12:29 12:29 WBC RBC Hgb Hct MCV MCH MCHC RDW Plt Count MPV Neut % (Auto) Lymph % (Auto) [place] % (Auto) Eos % (Auto) Baso % (Auto) Neut # (Auto) Lymph # (Auto) [place] # (Auto) Eos # (Auto) Baso # (Auto) Nucleated RBC % (a uto) Nucleated RBCs # D-Dimer 8.60 H Specimen Type Sample Site ABG pH ABG pCO2 ABG pO2 ABG HCO3 ABG O2 Saturation ABG Base Excess Jose Test A-a O2 Gradient Hematocrit Hgb O2 Saturation Carboxyhemoglobin Methemoglobin Total Hemoglobin Ionized Calcium O2 Delivery Device O2 Liters/Min FiO2 Surgical Aides Teacher ID Sodium 148 H Potassium 3.3 L Chloride 106 Carbon Dioxide 33 H Anion Gap 12.3 BUN 21 Creatinine 0.6 GFR Calculation 99.4 Glucose 258 H POC Glucose Calculated Osmolal ity 318 H Lactic Acid 1.5 Calcium 8.0 L Phosphorus Magnesium Total Bilirubin 0.4 AST 11 ALT 12 Alkaline Phosphata se 72 Troponin T Baselin e Troponin T 120 Min [place] Troponin T Troponin T Hi Sens 6Hr Troponin T Hi Sens 6Hr Delta C-Reactive Protein 14.1 H Total Protein 5.6 L Albumin 3.1 L Globulin 2.5 Urine Color Urine Appearance Urine pH Ur Specific Gravit y Urine Protein Urine Glucose (UA) Urine Ketones Urine Blood Urine Nitrate Urine Bilirubin Urine Urobilinogen Ur Leukocyte Mindy ase Urine RBC Urine WBC Ur Squamous Epith Cells Amorphous Sediment Urine Bacteria Urine Yeast 01/28/21 12:29 WBC 9.6 RBC 3.17 L Hgb 8.8 L Hct 29.7 L MCV 93.7 MCH 27.8 L MCHC 29.6 L RDW 15.9 H Plt Count 477 H MPV 9.9 Neut % (Auto) 73.7 Lymph % (Auto) 12.7 [place]ick % (Auto) 12.0 Eos % (Auto) 0.2 Baso % (Auto) 0.1 Neut # (Auto) 7.07 Lymph # (Auto) 1.2 [place] # (Auto) 1.2 H Eos # (Auto) 0.0 Baso # (Auto) 0.0 Nucleated RBC % (a uto) 0.2 Nucleated RBCs # 0.0 D-Dimer Specimen Type Sample Site ABG pH ABG pCO2 ABG pO2 ABG HCO3 ABG O2 Saturation ABG Base Excess Jose Test A-a O2 Gradient Hematocrit Hgb O2 Saturation Carboxyhemoglobin Methemoglobin Total Hemoglobin Ionized Calcium O2 Delivery Device O2 Liters/Min FiO2 Surgical Aides Teacher ID Sodium Potassium Chloride Carbon Dioxide Anion Gap BUN Creatinine GFR Calculation Glucose POC Glucose Calculated Osmolal ity Lactic Acid Calcium Phosphorus Magnesium Total Bilirubin AST ALT Alkaline Phosphata se Troponin T Baselin e Troponin T 120 Min [place] Troponin T Troponin T Hi Sens 6Hr Troponin T Hi Sens 6Hr Delta C-Reactive Protein Total Protein Albumin Globulin Urine Color Urine Appearance Urine pH Ur Specific Gravit y Urine Protein Urine Glucose (UA) Urine Ketones Urine Blood Urine Nitrate Urine Bilirubin Urine Urobilinogen Ur Leukocyte Mindy ase Urine RBC Urine WBC Ur Squamous Epith Cells Amorphous Sediment Urine Bacteria Urine Yeast Vitals: Last Vital Signs Temp 97.1 F L 01/29/21 11:56 Pulse 88 01/29/21 11:56 Resp 20 H 01/29/21 11:56 BP 138/66 01/29/21 11:56 Pulse Ox 93 01/29/21 11:56 Discharge Plan Discharge Patient Disposition: Hospice - Home Condition: Stable Prescriptions: New Ativan 2 mg/mL solution 2 mg IV Q4H PRN (Reason: agitation) Qty: 30 RF: 0 morphine concentrate 100 mg/5 mL (20 mg/mL) solution 10 mg PO Q2H PRN (Reason: pain) Qty: 30 RF: 0 Discontinued furosemide 20 mg tablet See Rx Instructions .ROUTE .COMPLEX RF: 0 pioglitazone [Actos] 45 mg tablet 45 mg PO DAILY RF: 0 methenamine hippurate 1 gram tablet 1 g PO BID Qty: 60 RF: 12 hydrocodone-acetaminophen 5-325 mg tablet 1 tab PO Q8H PRN (Reason: Pain) RF: 0 memantine [Namenda] 10 mg tablet 10 mg PO BID RF: 0 galantamine 12 mg tablet 12 mg PO BID RF: 0 ascorbic acid (vitamin C) [Vitamin C] 1,000 mg Tablet 1,000 mg PO BID RF: 0 ipratropium-albuterol 0.5 mg-3 mg(2.5 mg base)/3 mL solution for nebulization 3 ml INHALATION Q6H PRN (Reason: Shortness Of Breath) RF: 0 nystatin 100,000 unit/gram ointment See Rx Instructions .ROUTE .COMPLEX RF: 0 simvastatin 10 mg tablet 10 mg PO BEDTIME RF: 0 amoxicillin-pot clavulanate [Augmentin] 500-125 mg tablet 1 tab PO BID Qty: 14 RF: 0 dexamethasone 4 mg tablet 2 mg PO DAILY Qty: 7 RF: 0 fluticasone propion-salmeterol [Advair Diskus] 250-50 mcg/dose blister with device 1 inh inhalation BID Qty: 60 RF: 0 Zoloft 50 mg tablet 50 mg PO DAILY RF: 0 glipizide 5 mg tablet 5 mg PO DAILY RF: 0 potassium chloride 10 mEq capsule, extended release 10 meq PO BID RF: 0 insulin aspart U-100 [Novolog U-100 Insulin aspart] 100 unit/mL solution See Rx Instructions .ROUTE .COMPLEX RF: 0 Lantus Solostar U-100 Insulin 100 unit/mL (3 mL) insulin pen 10 unit SUBCUT BID RF: 0 No Action (DME) blood sugar diagnostic [OneTouch Ultra Blue Test Strip] Strip See Rx Instructions .ROUTE .MEDSUPPLY Qty: 180 RF: 0 Discharge Orders: Discharge Order (Routine); Ordered 01/29/21 Ordered By: Roc Prather Discharge Diet: Usual diet Discharge Activity: Resume usual activity Activity Restrictions/Additional Instructions: Transport on nonrebreather to home, for hospice Follow-up with hospice services Discharge Attestations Time Spent in Discharge Care*: greater than 30 min Status at Discharge: Cognitive status at discharge: moderately impaired cognition (Baseline dementia ), Behavioral status at discharge: dependent in ADL's, Quality Metrics Clinical Quality Measures During this hospital stay, did patient experience: None Coding Level of Care Code Acute Chg FW DC note Diagnoses Pneumonia due to COVID-19 virus U07.1; J12.82 CHF (congestive heart failure) I50.9 Heart failure chronicity: acute on chronic Heart failure type: unspecified Anemia D64.9 Anemia type: unspecified type COPD (chronic obstructive pulmonary disease) J44.9 COPD type: unspecified COPD Diabetes E11.65; Z79.4 Diabetes mellitus type: type 2 Diabetes mellitus employee training specialist insulin use: with employee training specialist use Diabetes mellitus complication status: with hyperglycemia Recurrent UTI N39.0 Alzheimer disease G30.9; F02.80
--- NOTE | 2021-01-29 13:49 | PC.NURSE ---
Discharge Note Patient discharged to Home via EMS accompanied by ambulance personnel. Discharge instructions reviewed with patient and/or territory representative. Mobile pharmacy medications and/or prescriptions provided. Belongings/home medications returned.
== END 2021-01-29 13:45 | disposition hospice, home (50) | DRG 177 ==
LOC: ER 12:09 → MEDSURG 01-29 06:56 → ER IP 01-29 07:58 → MEDSURG 01-29 07:58
PROVIDERS: Admitting Provider Hospitalist; Emergency Provider Family Medicine; PCP Registered Nurse; Visit Provider Internal Medicine
DX: U07.1 COVID-19 (principal); J12.82 Pneumonia due to coronavirus disease 2019; N39.0 Urinary tract infection, site not specified; I50.9 Heart failure, unspecified; G30.9 Alzheimer's disease, unspecified; F02.80 Dementia in other diseases classified elsewhere, unspecified severity, without behavioral disturbance, psychotic disturbance, mood disturbance, and anxiety; E11.9 Type 2 diabetes mellitus without complications; J44.9 Chronic obstructive pulmonary disease, unspecified; D63.8 Anemia in other chronic diseases classified elsewhere; R33.9 Retention of urine, unspecified; Z99.81 Dependence on supplemental oxygen; Z80.6 Family history of leukemia; Z80.49 Family history of malignant neoplasm of other genital organs; Z90.49 Acquired absence of other specified parts of digestive tract; Z79.4 Long term (current) use of insulin
CPT/HCPCS: 36415; 36416; 36600; 71045; 71275; 80051; 80053; 81001; 82330; 82805; 82962; 83605; 83735; 84100; 84484; 85025; 85378; 86140; 87086; 87106; 87107; 93005; 96365; 96366; 96367; 96372; 96375; 99291; C9113; J0743; J1100; J1650; J1815; J1940; J3480; Q9967